=== PATIENT | female | born 1965 | race Caucasian/White ===

== ENCOUNTER → 2016-12-05 | Outpatient (CLI) | payer BC ==
--- NOTE | 2016-12-06 08:04 | MM ---
Reason for exam: screening (asymptomatic). Last mammogram was performed 1 year and 2 months ago. History: Family history of breast cancer in maternal aunt at age 55, breast cancer in maternal cousin at age 45, and breast cancer in maternal cousin. Benign MG stereo VAD BX RT of the right breast, September 22, 2014. Benign US left guided VAD of the left breast, December 29, 2009. Took hormonal contraceptives for 38 years beginning at age 16. Physical Findings: A clinical breast exam by your physician is recommended on an annual basis and results should be correlated with mammographic findings. MG Screening Mammo w CAD Bilateral CC and MLO view(s) were taken. Prior study comparison: September 29, 2015, bilateral MG screening mammo w CAD. March 17, 2015, right breast MG diagnostic mammo RT w CAD. There are scattered fibroglandular densities. Finding: There are typically benign round calcifications in both breasts. Previous mammotome biopsy in the right and left breast. There is no discrete abnormality. ASSESSMENT: Benign, BI-RAD 2 RECOMMENDATION: Routine screening mammogram of both breasts in 1 year.
== END | disposition home or self-care (01) ==
LOC: RADMAMWWP 14:02
PROVIDERS: ATTEND Family Medicine
DX: Z12.31 Encounter for screening mammogram for malignant neoplasm of breast (principal)

== ENCOUNTER → 2018-01-24 | Outpatient (CLI) | payer BC ==
--- NOTE | 2018-01-25 12:08 | MM ---
Reason for exam: screening (asymptomatic). Last mammogram was performed 1 year and 2 months ago. History: Family history of breast cancer in maternal aunt at age 55, breast cancer in maternal cousin at age 45, and breast cancer in maternal cousin. Benign MG stereo VAD BX RT of the right breast, September 22, 2014. Benign US left guided VAD of the left breast, December 29, 2009. Took hormonal contraceptives for 38 years beginning at age 16. Physical Findings: A clinical breast exam by your physician is recommended on an annual basis and results should be correlated with mammographic findings. MG Screening Mammo w CAD Bilateral CC and MLO view(s) were taken. Prior study comparison: December 05, 2016, bilateral MG screening mammo w CAD. September 29, 2015, bilateral MG screening mammo w CAD. There are scattered fibroglandular densities. Previous mammotome biopsy in the right and left breast. There is chronic nodularity in the right breast. No significant changes when compared with prior studies. ASSESSMENT: Benign, BI-RAD 2 RECOMMENDATION: Routine screening mammogram of both breasts in 1 year.
== END | disposition home or self-care (01) ==
LOC: RADMAMWWP 11:53
PROVIDERS: ATTEND Family Medicine
DX: Z12.31 Encounter for screening mammogram for malignant neoplasm of breast (principal)
CPT/HCPCS: 77067

== ENCOUNTER → 2019-02-06 | Outpatient (CLI) | payer OTHER ==
--- NOTE | 2019-02-10 07:57 | MM ---
Reason for exam: screening (asymptomatic). Last mammogram was performed 1 year ago. History: Patient is postmenopausal. Family history of breast cancer in maternal aunt at age 55, breast cancer in maternal cousin at age 45, and breast cancer in maternal cousin. Benign MG stereo VAD BX RT of the right breast, September 22, 2014. Benign US left guided VAD of the left breast, December 29, 2009. Took hormonal contraceptives for 38 years beginning at age 16. Physical Findings: A clinical breast exam by your physician is recommended on an annual basis and results should be correlated with mammographic findings. MG Screening Mammo w CAD Bilateral CC and MLO view(s) were taken. Prior study comparison: January 24, 2018, bilateral MG screening mammo w CAD. December 05, 2016, bilateral MG screening mammo w CAD. There are scattered fibroglandular densities. Previous mammotome biopsy in the left breast. No significant changes when compared with prior studies. ASSESSMENT: Benign, BI-RAD 2 RECOMMENDATION: Routine screening mammogram of both breasts in 1 year.
== END | disposition home or self-care (01) ==
LOC: RADMAMWWP 13:01
PROVIDERS: ATTEND Family Medicine
DX: Z12.31 Encounter for screening mammogram for malignant neoplasm of breast (principal)
CPT/HCPCS: 77067

== ENCOUNTER 2019-08-20 19:35 | Emergency (ER) | payer OTHER ==
[2019-08-20] MEDS ORDERED: ONDANSETRON 4 MG/2 ML VIAL IVP STA (20:20)
[2019-08-20] MEDS ORDERED: SODIUM CHLORIDE 0.9% 1,000 ML IV STA (20:20)
[2019-08-20] MEDS ORDERED: HYDROmorphone 0.5 MG/0.5 ML SYRINGE IVP STA ×2 (20:20→22:26)
--- NOTE | 2019-08-20 20:33 | ED ---
General Adult HPI - General Chief complaint: Abdominal Pain Stated complaint: abdominal pain Time Seen by Provider: 08/20/19 19:50 Source: patient, RN notes reviewed Mode of arrival: ambulatory Limitations: no limitations - History of Present Illness Initial comments: 54-year-old female with a past medical history hyperlipidemia, diabetes mellitus presents to the emergency department for a chief complaint of upper abdominal pain. Patient states this has been ongoing for about 4 hours. Describes this as a very sharp pain. States it started off very gradual and then worsened in the past hour. Denies any radiating pain. Admits to nausea. Denies chest pain or back pain. States she is a history diverticular and states this feels similar but it is usually lower abdomen. Patient has no other complaints at this time including shortness of breath, chest pain, nausea or vomiting, headache, or visual changes. - Related Data Home Medications Medication Instructions Recorded Confirmed Aspirin [Adult Low Dose Aspirin EC] 81 mg PO DAILY 11/04/15 11/06/15 Atenolol [Tenormin] 50 mg PO DAILY 11/04/15 11/06/15 Levothyroxine Sodium [Synthroid] 125 mcg PO DAILY 11/04/15 11/06/15 Propranolol HCl [Propranolol HCl 60 mg PO DAILY 11/04/15 11/06/15 ER] Simvastatin [Zocor] 20 mg PO HS 11/04/15 11/06/15 glipiZIDE [Glipizide] 5 mg PO BID 11/04/15 11/06/15 metFORMIN HCL [metFORMIN HCL ER] 1,000 mg PO BID 11/04/15 11/06/15 Previous Rx's Medication Instructions Recorded Sulfamethox-Tmp 800-160Mg [Bactrim 1 tab PO Q12HR #20 tab 08/21/19 DS 800-160 mg] Allergies Allergy/AdvReac Type Severity Reaction Status Date / Time No Known Allergies Allergy Verified 08/20/19 19:40 Review of Systems ROS Statement: Those systems with pertinent positive or pertinent negative responses have been documented in the HPI. ROS Other: All systems not noted in ROS Statement are negative. Past Medical History Past Medical History: Diabetes Mellitus, Hyperlipidemia, Thyroid Disorder History of Any Multi-Drug Resistant Organisms: None Reported Past Surgical History: Heart Catheterization Past Psychological History: No Psychological Hx Reported Smoking Status: Never smoker Past Alcohol Use History: None Reported Past Drug Use History: None Reported General Exam Limitations: no limitations General appearance: alert, in no apparent distress Head exam: Present: atraumatic, normocephalic, normal inspection Eye exam: Present: normal appearance, PERRL, EOMI. Absent: scleral icterus, conjunctival injection, periorbital swelling ENT exam: Present: normal exam, mucous membranes moist Neck exam: Present: normal inspection, full ROM. Absent: tenderness, meningismus, lymphadenopathy Respiratory exam: Present: normal lung sounds bilaterally. Absent: respiratory distress, wheezes, rales, rhonchi, stridor Cardiovascular Exam: Present: regular rate, normal rhythm, normal heart sounds. Absent: systolic murmur, diastolic murmur, rubs, gallop, clicks GI/Abdominal exam: Present: soft, tenderness (epigastric tenderness), normal bowel sounds. Absent: distended, guarding, rebound, rigid Neurological exam: Present: alert Psychiatric exam: Present: normal affect, normal mood Course Vital Signs 08/20/19 08/20/19 19:37 22:31 Temperature 98.0 F 98 F Pulse Rate 91 75 Respiratory 20 18 Rate Blood Pressure 157/84 107/62 O2 Sat by Pulse 99 97 Oximetry EKG Findings - EKG Comments: EKG Findings:: Normal sinus rhythm, ventricular rate 86, WA interval 154, QTc 442 Medical Decision Making - Medical Decision Making CBC unremarkable. CMP does show evidence of dehydration with a BUN to creatinine ratio of 26. Otherwise unremarkable. EKG shows a normal sinus rhythm. No evidence of ST elevation or depression. Urinalysis does show 75 white blood cells with large this esterase. No CVA tenderness. CT abdomen and pelvis was obtained which shows findings suggestive for ileus rather than small bowel obstruction. This is likely that the patient's pain. Patient is given pain medication and did improve her pain significantly. She was also given fluids for dehydration and Rocephin for urinary tract infection. Patient will be treated outpatient for UTI as well as ileus. She will follow up with primary care. I discussed return parameters. - Lab Data Result diagrams: 08/20/19 20:38 08/20/19 20:38 Lab Results 08/20/19 08/20/19 08/20/19 Range/Units 20:38 20:38 20:38 WBC 9.9 (3.8-10.6) k/uL RBC 4.57 (3.80-5.40) m/uL Hgb 14.3 (11.4-16.0) gm/dL Hct 41.9 (34.0-46.0) % MCV 91.7 (80.0-100.0) fL MCH 31.3 (25.0-35.0) pg MCHC 34.1 (31.0-37.0) g/dL RDW 12.6 (11.5-15.5) % Plt Count 188 (150-450) k/uL Neutrophils % 77 % Lymphocytes % 16 % Monocytes % 4 % Eosinophils % 1 % Basophils % 1 % Neutrophils # 7.6 (1.3-7.7) k/uL Lymphocytes # 1.6 (1.0-4.8) k/uL Monocytes # 0.4 (0-1.0) k/uL Eosinophils # 0.1 (0-0.7) k/uL Basophils # 0.1 (0-0.2) k/uL Sodium 140 (137-145) mmol/L Potassium 4.6 (3.5-5.1) mmol/L Chloride 102 (98-107) mmol/L Carbon Dioxide 28 (22-30) mmol/L Anion Gap 10 mmol/L BUN 34 H (7-17) mg/dL Creatinine 1.28 H (0.52-1.04) mg/dL Est GFR (CKD-EPI)AfAm 54 (>60 ml/min/1.73 sqM) Est GFR (CKD-EPI)NonAf 47 (>60 ml/min/1.73 sqM) Glucose 123 H (74-99) mg/dL Plasma Lactic Acid Willem (0.7-2.0) mmol/L Calcium 10.1 (8.4-10.2) mg/dL Total Bilirubin 0.6 (0.2-1.3) mg/dL AST 25 (14-36) U/L ALT 28 (9-52) U/L Alkaline Phosphatase 176 H (38-126) U/L Troponin I <0.012 (0.000-0.034) ng/mL Total Protein 7.9 (6.3-8.2) g/dL Albumin 4.8 (3.5-5.0) g/dL Amylase 66 (30-110) U/L Lipase 89 (23-300) U/L Urine Color Urine Appearance (Clear) Urine pH (5.0-8.0) Ur Specific [place] (1.001-1.035) Urine Protein (Negative) Urine Glucose (UA) (Negative) Urine Ketones (Negative) Urine Blood (Negative) Urine Nitrite (Negative) Urine Bilirubin (Negative) Urine Urobilinogen (<2.0) mg/dL Ur Leukocyte Esterase (Negative) Urine RBC (0-5) /hpf Urine WBC (0-5) /hpf Urine Bacteria (None) /hpf 08/20/19 08/20/19 Range/Units 20:38 22:23 WBC (3.8-10.6) k/uL RBC (3.80-5.40) m/uL Hgb (11.4-16.0) gm/dL Hct (34.0-46.0) % MCV (80.0-100.0) fL MCH (25.0-35.0) pg MCHC (31.0-37.0) g/dL RDW (11.5-15.5) % Plt Count (150-450) k/uL Neutrophils % % Lymphocytes % % Monocytes % % Eosinophils % % Basophils % % Neutrophils # (1.3-7.7) k/uL Lymphocytes # (1.0-4.8) k/uL Monocytes # (0-1.0) k/uL Eosinophils # (0-0.7) k/uL Basophils # (0-0.2) k/uL Sodium (137-145) mmol/L Potassium (3.5-5.1) mmol/L Chloride (98-107) mmol/L Carbon Dioxide (22-30) mmol/L Anion Gap mmol/L BUN (7-17) mg/dL Creatinine (0.52-1.04) mg/dL Est GFR (CKD-EPI)AfAm (>60 ml/min/1.73 sqM) Est GFR (CKD-EPI)NonAf (>60 ml/min/1.73 sqM) Glucose (74-99) mg/dL Plasma Lactic Acid Willem 1.3 (0.7-2.0) mmol/L Calcium (8.4-10.2) mg/dL Total Bilirubin (0.2-1.3) mg/dL AST (14-36) U/L ALT (9-52) U/L Alkaline Phosphatase (38-126) U/L Troponin I (0.000-0.034) ng/mL Total Protein (6.3-8.2) g/dL Albumin (3.5-5.0) g/dL Amylase (30-110) U/L Lipase (23-300) U/L Urine Color Yellow Urine Appearance Cloudy H (Clear) Urine pH 8.5 H (5.0-8.0) Ur Specific [place] 1.037 H (1.001-1.035) Urine Protein Trace H (Negative) Urine Glucose (UA) Negative (Negative) Urine Ketones Trace H (Negative) Urine Blood Trace H (Negative) Urine Nitrite Negative (Negative) Urine Bilirubin Negative (Negative) Urine Urobilinogen <2.0 (<2.0) mg/dL Ur Leukocyte Esterase Large H (Negative) Urine RBC 4 (0-5) /hpf Urine WBC 75 H (0-5) /hpf Urine Bacteria Many H (None) /hpf Disposition Clinical Impression: Urinary tract infection, Ileus Disposition: HOME SELF-CARE Condition: Good Instructions (If sedation given, give patient instructions): Ileus (ED), Urinary Tract Infection in Women (ED) Additional Instructions: Please take antibiotic as directed. Take plenty of fluids. Follow-up with primary care in 1-2 days. Return to the emergency department if you have any worsening symptoms. Prescriptions: Sulfamethox-Tmp 800-160Mg [Bactrim DS 800-160 mg] 1 tab PO Q12HR #20 tab Is patient prescribed a controlled substance at d/c from ED?: No Referrals: Ramiro Bhardwaj MD [Primary Care Provider] - 1-2 days Time of Disposition: 00:19
[2019-08-20 20:49] LABS: Basophils # (A) 0.1 k/uL (0-0.2); Basophils % (A) 1 %; Eosinophils # (A) 0.1 k/uL (0-0.7); Eosinophils % (A) 1 %; HCT 41.9 % (34.0-46.0); HGB 14.3 gm/dL (11.4-16.0); Lymphocytes # (A) 1.6 k/uL (1.0-4.8); Lymphocytes % (A) 16 %; MCH 31.3 pg (25.0-35.0); MCHC 34.1 g/dL (31.0-37.0); MCV 91.7 fL (80.0-100.0); Mean Platelet Volume 6.7; Monocytes # (A) 0.4 k/uL (0-1.0); Monocytes % (A) 4 %; Neutrophils # (A) 7.6 k/uL (1.3-7.7); Neutrophils % (A) 77 %; Platelet Count 188 k/uL (150-450); RBC 4.57 m/uL (3.80-5.40); RDW 12.6 % (11.5-15.5); WBC 9.9 k/uL (3.8-10.6)
[2019-08-20 20:59] LABS: Albumin 4.8 g/dL (3.5-5.0); Calcium 10.1 mg/dL (8.4-10.2); Potassium 4.6 mmol/L (3.5-5.1); Total Bilirubin 0.6 mg/dL (0.2-1.3); Total Protein 7.9 g/dL (6.3-8.2)
--- NOTE | 2019-08-20 22:00 | CT ---
EXAMINATION TYPE: CT abdomen pelvis w con DATE OF EXAM: 08/20/2019 COMPARISON: None INDICATION: upper abdominal pain DLP: 1368.4 mGycm, Automated exposure control for dose reduction was used. CONTRAST: 80cc mL of Isovue 300. Study performed without Oral Contrast TECHNIQUE: Axial images were obtained from above the diaphragm to the pubic rami in the axial plane a t 5 mm thick sections. Reconstructed images are reviewed on the computer in the coronal plane. FINDINGS: Limited CT sections are obtained the lung bases. The lung bases are clear. CT ABDOMEN: Liver: Normal Spleen: Normal Pancreas: Normal Adrenal glands: The adrenal glands are normal. Gallbladder: Normal Kidneys: No masses are evident. No hydronephrosis is present. No cysts are present. Large nonobstr ucting calcifications are present bilaterally. Aorta: Normal Inferior vena cava: Normal. CT PELVIS: Multiple dilated small bowel loops contain fluid are present. This extends towards the terminal ileum . No suspicious sonographic transition is identified. Air and fecal debris is within the colon. There are scattered diverticuli within the sigmoid colon. No acute diverticulitis is evident. Appendix: Normal as visualized. Urinary bladder: Normal. Genitourinary structures: Uterus is unremarkable. Adnexal regions are clear Osseous structures: No suspicious lytic or sclerotic lesions. IMPRESSIONS: 1. Findings appear more suggestive for ileus than small bowel obstruction. Fluid-filled prominent sm all bowel loops extends to the terminal ileum. Follow-up as clinically indicated. 2. Diverticulosis without acute diverticulitis. 3. Bilateral large renal calcifications without obstruction.
[2019-08-20 22:32] VITALS: RESP 18
[2019-08-20 22:33] LABS: Appearance,Urine Cloudy (Clear); Bacteria,Urine Many /hpf; Bilirubin,Urine Negative (Negative); Blood,Urine Trace (Negative); Color,Urine Yellow; Glucose,Urine (UA) Negative (Negative); Ketones,Urine Trace (Negative); Leukocyte Esterase,Urine Large (Negative); Nitrite,Urine Negative (Negative); PH, Urine 8.5 (5.0-8.0); Protein,Urine Trace (Negative); RBC,Urine 4 /hpf (0-5); Specific Gravity,Urine 1.037 (1.001-1.035); Urobilinogen,Urine <2.0 mg/dL (<2.0); WBC,Urine 75 /hpf (0-5)
[2019-08-20] MEDS ORDERED: cefTRIAXone IN SWFI 1,000 MG/10 ML SYRINGE IVP STA (22:49)
--- NOTE | 2019-08-20 23:59 | US ---
EXAMINATION TYPE: US abdomen limited DATE OF EXAM: 08/20/2019 COMPARISON: CT 2019 CLINICAL HISTORY: RUQ. RUQ/epigastric pain x 7 hours. Hyperlipidemia. Diabetes. EXAM MEASUREMENTS: Liver Length: 16.2 cm Gallbladder Wall: 0.26 cm CBD: 0.44 cm Right Kidney: 9.5 x 5.1 x 5.3 cm *Limited due to gas and body habitus Pancreas: Limited evaluation Liver: Difficult to penetrate, increased attenuation. Gallbladder: Internal echoes seen vs artifact. Appears partially contracted. Evidence for sonographic Chisholm's sign: no CBD: appears wnl Right Kidney: Hyperechoic focus with posterior shadowing seen lower pole measurin.7 x 0.7 x 0.4 cm. IMPRESSION: No gallstones or dilated ducts. No hydronephrosis seen in the right kidney. Nonobstructin g calculus in the lower pole right kidney.
[2019-08-21 00:44] VITALS: BP 125/78; PULSE 80; TEMP 98
== END 2019-08-21 00:44 | disposition home or self-care (01) ==
LOC: EC 19:35
DX: K56.7 Ileus, unspecified (principal); N39.0 Urinary tract infection, site not specified; E86.0 Dehydration; E11.9 Type 2 diabetes mellitus without complications; E78.5 Hyperlipidemia, unspecified; E07.9 Disorder of thyroid, unspecified; Z79.82 Long term (current) use of aspirin; Z79.890 Hormone replacement therapy; Z79.84 Long term (current) use of oral hypoglycemic drugs; Z79.899 Other long term (current) drug therapy; Z95.5 Presence of coronary angioplasty implant and graft
CPT/HCPCS: 36415; 93005; 80053; 82150; 83605; 83690; 84484; 85025; 81001; 76705; 74177; 99284; 96374; 96375 ×2; 96376; 96361 ×2; J2405; J0696; J1170; Q9967

== ENCOUNTER 2020-04-13 22:48 | Inpatient (IN) | payer OTHER ==
[2020-04-13] MEDS ORDERED: ONDANSETRON 4 MG/2 ML VIAL IVP STA (23:23)
--- NOTE | 2020-04-13 23:41 | ED ---
Fever HPI - General Chief Complaint: Fever Stated Complaint: Body aches, chills Time Seen by Provider: 04/13/20 23:18 Source: patient Mode of arrival: ambulatory Limitations: no limitations - Related Data Home Medications Medication Instructions Recorded Confirmed Aspirin [Adult Low Dose Aspirin EC] 81 mg PO DAILY 11/04/15 11/06/15 Atenolol [Tenormin] 50 mg PO DAILY 11/04/15 11/06/15 Levothyroxine Sodium [Synthroid] 125 mcg PO DAILY 11/04/15 11/06/15 Propranolol HCl [Propranolol HCl 60 mg PO DAILY 11/04/15 11/06/15 ER] Simvastatin [Zocor] 20 mg PO HS 11/04/15 11/06/15 glipiZIDE [Glipizide] 5 mg PO BID 11/04/15 11/06/15 metFORMIN HCL [metFORMIN HCL ER] 1,000 mg PO BID 11/04/15 11/06/15 Previous Rx's Medication Instructions Recorded Sulfamethox-Tmp 800-160Mg [Bactrim 1 tab PO Q12HR #20 tab 08/21/19 DS 800-160 mg] Allergies Allergy/AdvReac Type Severity Reaction Status Date / Time No Known Allergies Allergy Verified 04/13/20 23:01 Review of Systems ROS Statement: Those systems with pertinent positive or pertinent negative responses have been documented in the HPI. ROS Other: All systems not noted in ROS Statement are negative. Past Medical History Past Medical History: Diabetes Mellitus, Hyperlipidemia, Thyroid Disorder History of Any Multi-Drug Resistant Organisms: None Reported Past Surgical History: Heart Catheterization Past Psychological History: No Psychological Hx Reported Smoking Status: Never smoker Past Alcohol Use History: None Reported Past Drug Use History: None Reported General Exam Limitations: no limitations Course Vital Signs 04/13/20 04/14/20 22:59 00:48 Temperature 102.7 F H 101.6 F H Pulse Rate 103 H Respiratory 16 Rate Blood Pressure 114/72 O2 Sat by Pulse 97 Oximetry Medical Decision Making - Lab Data Result diagrams: 04/13/20 23:56 04/13/20 23:56 Lab Results 04/13/20 04/13/20 04/13/20 Range/Units 23:56 23:56 23:56 WBC 6.6 (3.8-10.6) k/uL RBC 3.68 L (3.80-5.40) m/uL Hgb 11.4 (11.4-16.0) gm/dL Hct 34.0 (34.0-46.0) % MCV 92.5 (80.0-100.0) fL MCH 30.9 (25.0-35.0) pg MCHC 33.4 (31.0-37.0) g/dL RDW 14.5 (11.5-15.5) % Plt Count 104 L (150-450) k/uL Neutrophils % 82 % Lymphocytes % 9 % Monocytes % 5 % Eosinophils % 1 % Basophils % 0 % Neutrophils # 5.4 (1.3-7.7) k/uL Lymphocytes # 0.6 L (1.0-4.8) k/uL Monocytes # 0.3 (0-1.0) k/uL Eosinophils # 0.1 (0-0.7) k/uL Basophils # 0.0 (0-0.2) k/uL PT 9.8 (9.0-12.0) sec INR 0.9 (<1.2) APTT 27.2 (22.0-30.0) sec D-Dimer 1.95 H (<0.60) mg/L FEU Sodium 130 L (137-145) mmol/L Potassium 3.2 L (3.5-5.1) mmol/L Chloride 94 L (98-107) mmol/L Carbon Dioxide 26 (22-30) mmol/L Anion Gap 10 mmol/L BUN 39 H (7-17) mg/dL Creatinine 2.43 H (0.52-1.04) mg/dL Est GFR (CKD-EPI)AfAm 25 (>60 ml/min/1.73 sqM) Est GFR (CKD-EPI)NonAf 22 (>60 ml/min/1.73 sqM) Glucose 168 H (74-99) mg/dL Plasma Lactic Acid Willem (0.7-2.0) mmol/L Calcium 8.4 (8.4-10.2) mg/dL Magnesium 2.8 H (1.6-2.3) mg/dL Total Bilirubin 0.8 (0.2-1.3) mg/dL AST 31 (14-36) U/L ALT 19 (4-34) U/L Alkaline Phosphatase 137 H (38-126) U/L Lactate Dehydrogenase 503 (313-618) U/L C-Reactive Protein 644.7 H (<10.0) mg/L Total Protein 7.0 (6.3-8.2) g/dL Albumin 3.6 (3.5-5.0) g/dL 04/13/20 Range/Units 23:56 WBC (3.8-10.6) k/uL RBC (3.80-5.40) m/uL Hgb (11.4-16.0) gm/dL Hct (34.0-46.0) % MCV (80.0-100.0) fL MCH (25.0-35.0) pg MCHC (31.0-37.0) g/dL RDW (11.5-15.5) % Plt Count (150-450) k/uL Neutrophils % % Lymphocytes % % Monocytes % % Eosinophils % % Basophils % % Neutrophils # (1.3-7.7) k/uL Lymphocytes # (1.0-4.8) k/uL Monocytes # (0-1.0) k/uL Eosinophils # (0-0.7) k/uL Basophils # (0-0.2) k/uL PT (9.0-12.0) sec INR (<1.2) APTT (22.0-30.0) sec D-Dimer (<0.60) mg/L FEU Sodium (137-145) mmol/L Potassium (3.5-5.1) mmol/L Chloride (98-107) mmol/L Carbon Dioxide (22-30) mmol/L Anion Gap mmol/L BUN (7-17) mg/dL Creatinine (0.52-1.04) mg/dL Est GFR (CKD-EPI)AfAm (>60 ml/min/1.73 sqM) Est GFR (CKD-EPI)NonAf (>60 ml/min/1.73 sqM) Glucose (74-99) mg/dL Plasma Lactic Acid Willem 1.1 (0.7-2.0) mmol/L Calcium (8.4-10.2) mg/dL Magnesium (1.6-2.3) mg/dL Total Bilirubin (0.2-1.3) mg/dL AST (14-36) U/L ALT (4-34) U/L Alkaline Phosphatase (38-126) U/L Lactate Dehydrogenase (313-618) U/L C-Reactive Protein (<10.0) mg/L Total Protein (6.3-8.2) g/dL Albumin (3.5-5.0) g/dL - EKG Data -: EKG Interpreted by Me (EKG sinus rhythm rate of 90 7 PM 152 QRS A QTC 424) Disposition Clinical Impression: Fever, Viral infection, Gastroenteritis Narrative: ro COVID Disposition: ADMITTED IP TO THIS HOSP Condition: Good Is patient prescribed a controlled substance at d/c from ED?: No Referrals: Denny Briseno MD [Primary Care Provider] - 1-2 days
[2020-04-13] MEDS ORDERED: KETOROLAC 30 MG/ML 1 ML VIAL IVP STA (23:50)
[2020-04-14 00:10] LABS: Basophils % (A) 0 %; Eosinophils # (A) 0.1 k/uL (0-0.7); Eosinophils % (A) 1 %; HGB 11.4 gm/dL (11.4-16.0); Lymphocytes # (A) 0.6 k/uL (1.0-4.8); Lymphocytes % (A) 9 %; MCH 30.9 pg (25.0-35.0); MCHC 33.4 g/dL (31.0-37.0); MCV 92.5 fL (80.0-100.0); Mean Platelet Volume 8.1; Monocytes # (A) 0.3 k/uL (0-1.0); Monocytes % (A) 5 %; Neutrophils # (A) 5.4 k/uL (1.3-7.7); Neutrophils % (A) 82 %; Platelet Count 104 k/uL (150-450); RBC 3.68 m/uL (3.80-5.40); RDW 14.5 % (11.5-15.5); WBC 6.6 k/uL (3.8-10.6)
[2020-04-14 00:25] LABS: Albumin 3.6 g/dL (3.5-5.0); Calcium 8.4 mg/dL (8.4-10.2); Magnesium 2.8 mg/dL (1.6-2.3); Potassium 3.2 mmol/L (3.5-5.1); Total Bilirubin 0.8 mg/dL (0.2-1.3)
[2020-04-14 00:35] LABS: INR 0.9 (<1.2); Partial Thromboplastin Time 27.2 sec (22.0-30.0); Prothrombin Time 9.8 sec (9.0-12.0)
--- NOTE | 2020-04-14 00:38 | XR ---
EXAMINATION TYPE: XR KUB DATE OF EXAM: 04/14/2020 COMPARISON: NONE HISTORY: Abdominal pain TECHNIQUE: 2 views FINDINGS: Supine views were obtained and show no sign of intestinal obstruction or pneumoperitoneum. Fecal pattern is normal. There are no pathologic calcifications. There is no evidence of a mass. Lung bases are clear of consolidation. IMPRESSION: Nonacute abdomen.
--- NOTE | 2020-04-14 00:41 | XR ---
EXAMINATION TYPE: XR chest 1V portable DATE OF EXAM: 04/14/2020 COMPARISON: NONE HISTORY: Chest pain TECHNIQUE: FINDINGS: Heart and mediastinum are normal. Lungs are clear. Diaphragm is normal. Bony thorax is inta ct. IMPRESSION: Normal chest.
[2020-04-14 00:46] LABS: D-Dimer 1.95 mg/L FEU (<0.60)
[2020-04-14 01:16] LABS: C Reactive Protein 644.7 mg/L (<10.0)
[2020-04-14] MEDS ORDERED: ACETAMINOPHEN TAB 325 MG TAB PO STA (01:35)
[2020-04-14] MEDS: SODIUM CHLORIDE 0.9% 1,000 ML IV SCH ×3 (01:56→17:09)
[2020-04-14] MEDS: SODIUM CHLORIDE 0.9% 500 ML 500 ML IV SCH ×3 (01:56→02:47)
[2020-04-14] MEDS ORDERED: MORPHINE SULFATE 4 MG/ML SYRINGE IVP STA (03:24)
[2020-04-14] MEDS ORDERED: PANTOPRAZOLE 40 MG/10 ML VIAL IV SCH (09:00)
[2020-04-14] MEDS ORDERED: ENOXAPARIN 40 MG/0.4 ML SYRINGE SQ SCH (09:00)
[2020-04-14 09:24] LABS: Glucose,Whole Blood 59 mg/dL (75-99)
[2020-04-14 09:31] LABS: Glucose,Whole Blood 59 mg/dL (75-99)
[2020-04-14 09:49] LABS: Glucose,Whole Blood 78 mg/dL (75-99)
[2020-04-14] MEDS: MORPHINE SULFATE 2 MG/ML SYRINGE IVP PRN (10:46)
[2020-04-14 10:47] LABS: Glucose,Whole Blood 162 mg/dL (75-99)
[2020-04-14 12:26] LABS: Ferritin 340.2 ng/mL (10.0-291.0)
[2020-04-14] MEDS: ACETAMINOPHEN TAB 325 MG TAB PO PRN ×2 (13:28→21:07)
[2020-04-14] MEDS: JARDIANCE 10 MG PO SCH ×2 (13:37→15:03)
[2020-04-14] MEDS: MULTIVITAMINS, THERA 1 EACH TAB PO SCH (13:57)
[2020-04-14] MEDS: LEVOTHYROXINE 125 MCG TAB PO SCH (13:57)
[2020-04-14] MEDS: VITAMIN E (DL,TOCOPHERYL ACET) 400 UNIT CAP PO SCH (13:57)
[2020-04-14 16:44] LABS: Glucose,Whole Blood 282 mg/dL (75-99)
[2020-04-14] MEDS ORDERED: POTASSIUM CHLORIDE ER 20 MEQ TAB.ER PO STA (16:55)
[2020-04-14 21:01] LABS: Glucose,Whole Blood 217 mg/dL (75-99)
[2020-04-14] MEDS: glipiZIDE 5 MG TAB PO SCH (21:07)
[2020-04-14] MEDS ORDERED: NALOXONE 0.4 MG/ML 1 ML VIAL IV PRN (22:22)
[2020-04-14] MEDS ORDERED: MELATONIN 3 MG TABLET PO PRN (22:22)
[2020-04-14] MEDS ORDERED: MAG HYDROX/AL HYDROX/SIMETH 30 ML CUP PO PRN (22:22)
[2020-04-14] MEDS ORDERED: LACTULOSE 20 GM/30 ML CUP PO PRN (22:22)
[2020-04-14] MEDS ORDERED: CALCIUM CARBONATE 500 MG CHEWABLE PO PRN (22:22)
[2020-04-14] MEDS ORDERED: MAGNESIUM HYDROXIDE 2,400 MG/10 ML CUP PO PRN (22:22)
[2020-04-14] MEDS ORDERED: ENOXAPARIN 80 MG/0.8 ML SYRINGE SQ SCH (22:30)
--- NOTE | 2020-04-14 22:39 | P.HPIM ---
History of Present Illness H&P Date: 04/14/20 Chief Complaint: Fever History of presenting complaint: This is a pleasant 54-year-old patient of Dr. poe. Chronic stable medical conditions include diabetes mellitus type 2, hypothyroid,. Patient's 3 weeks ago started of with lower back pain shivering some nausea symptoms lasted for about 10 days. She was given symptomatic treatment by family doctor. [place] better for a week. Went back to work for a day. Symptoms started again. Same fever and chills. Denies any cough but noted that she was getting short of breath with exertion. She has some diarrhea yesterday. Appetite has been down. Patient also had cold sores a week ago. Given antiviral by family doctor. Also felt dizzy lightheaded. Decided to come in. Review of systems: GEN.: Weak tired and dizzy lightheaded fever EYES: None HEENT: None NECK: None RESPIRATORY: As above CARDIOVASCULAR: None GASTROINTESTINAL: As above GENITOURINARY: None MUSCULOSKELETAL: None LYMPHATICS: None HEMATOLOGICAL: None PSYCHIATRY: None NEUROLOGICAL: None Past medical history to include: Diabetes mellitus type 2, GERD-before patient lost weight, hypothyroid Social history: Lives with her fianc. Does not smoke or drink alcohol. Does home care. Physical examination: VITAL SIGNS: 101.6, 78, 18, 106/60, 98% on room air GENERAL: BMI 30.9, sitting up in bed, not in distress. EYES: Pupils equal. Conjunctiva normal. HEENT: External appearance of nose and ears normal, oral cavity grossly normal. NECK: JVD not raised; masses not palpable. HEART: First and second heart sounds are normal; no edema. LUNGS: Respiratory rate normal; clear to auscultation. ABDOMEN: Soft, nontender, liver spleen not palpable, no masses palpable. PSYCH: Alert and oriented x3; mood and affect normal. NEUROLOGICAL: Cranial nerves grossly intact; no facial asymmetry, power and sensation grossly intact. LYMPHATICS: No lymph nodes palpable in the axilla and neck INVESTIGATIONS, reviewed in the clinical context: White count 6.6 hemoglobin 11.4 platelets 104 potassium 3.2 bun 39 creatinine 2.43 Blood glucose 168 ferritin 340 C-reactive protein 644 pro calcitonin 37.9 EKG tracing personally reviewed by me-normal sinus rhythm, poor R-wave progression Chest x-ray film personally reviewed by [id number] obvious infiltrate Assessment: -This is a patient who's had fever and chills about 3 weeks ago was started off with significant low back pain. Denies any urinary symptoms. Had one day of diarrhea. Some shortness of breath with exertion. Patient pulse oxing well on room air. Patient's inflammation markers are all positive Suspicion for COVID is significant. Also like to rule out discitis. -Diabetes mellitus type 2 on oral hypoglycemic -Hypothyroid -Obesity BMI 30.9 -Hyponatremia -Acute kidney injury likely ATN and possible prerenal Plan: COVID 19 PCR test has been sent out. In the meantime empirically start the patient on therapeutic dose of Lovenox and IV Solu-Medrol. Accu-Cheks will be followed. Home medications resumed. We will order MRI of the spine without contrast. Infectious disease was consulted. Care was discussed with the patient question patient was given IV fluids. Repeat labs. Questions Were answered. Order blood cultures . Past Medical History Past Medical History: Diabetes Mellitus, Hyperlipidemia, Thyroid Disorder History of Any Multi-Drug Resistant Organisms: None Reported Past Surgical History: Heart Catheterization Past Psychological History: No Psychological Hx Reported Smoking Status: Never smoker Past Alcohol Use History: None Reported Past Drug Use History: None Reported - Past Family History Father Family Medical History: Coronary Artery Disease (CAD), Myocardial Infarction (MT) Additional Family Medical History / Comment(s): Pt does not know at what age father had MT. She states he of heart disease at the age of 62 yrs. Mother Family Medical History: Diabetes Mellitus Additional Family Medical History / Comment(s): Mother of sepsis. Brother(s) Family Medical History: Myocardial Infarction (MT) Additional Family Medical History / Comment(s): Brother had a MT at the age of 52 yrs. Sister(s) Family Medical History: Myocardial Infarction (MT) Additional Family Medical History / Comment(s): Sister had a MT at the age of 56yrs. Medications and Allergies Home Medications Medication Instructions Recorded Confirmed Type Levothyroxine Sodium [Synthroid] 125 mcg PO DAILY 11/04/15 04/14/20 History glipiZIDE [Glipizide] 5 mg PO BID 11/04/15 04/14/20 History Cholecalciferol [Vitamin D3 (25 1,000 unit PO DAILY 04/14/20 04/14/20 History Mcg = 1000 Iu)] Empagliflozin [Jardiance] 25 mg PO DAILY 04/14/20 04/14/20 History Hydrochlorothiazide [Hydrodiuril] 25 mg PO DAILY 04/14/20 04/14/20 History Multivitamins, Thera [Multivitamin 1 tab PO DAILY 04/14/20 04/14/20 History (formulary)] Vitamin E 400 unit PO DAILY 04/14/20 04/14/20 History Allergies Allergy/AdvReac Type Severity Reaction Status Date / Time No Known Allergies Allergy Verified 04/14/20 06:40 Physical Exam Vitals: Vital Signs Temp Pulse Resp BP Pulse Ox 04/14/20 09:08 97.7 F 71 16 103/65 99 04/14/20 06:28 97.7 F 04/14/20 04:03 78 19 105/74 99 04/14/20 02:42 98.7 F 72 20 104/62 96 04/14/20 02:11 78 18 106/60 98 04/14/20 00:48 101.6 F H 04/13/20 22:59 102.7 F H 103 H 16 114/72 97 Intake and Output 04/13/20 04/14/20 04/14/20 22:59 06:59 14:59 Other: Weight 81.647 kg Results CBC & Chem 7: 04/13/20 23:56 04/13/20 23:56 Labs: Abnormal Lab Results - Last 24 Hours (Table) 04/13/20 04/13/20 04/13/20 Range/Units 23:56 23:56 23:56 RBC 3.68 L (3.80-5.40) m/uL Plt Count 104 L (150-450) k/uL Lymphocytes # 0.6 L (1.0-4.8) k/uL D-Dimer 1.95 H (<0.60) mg/L FEU Sodium 130 L (137-145) mmol/L Potassium 3.2 L (3.5-5.1) mmol/L Chloride 94 L (98-107) mmol/L BUN 39 H (7-17) mg/dL Creatinine 2.43 H (0.52-1.04) mg/dL Glucose 168 H (74-99) mg/dL POC Glucose (mg/dL) (75-99) mg/dL Magnesium 2.8 H (1.6-2.3) mg/dL Alkaline Phosphatase 137 H (38-126) U/L C-Reactive Protein 644.7 H (<10.0) mg/L 04/14/20 04/14/20 Range/Units 09:08 09:30 RBC (3.80-5.40) m/uL Plt Count (150-450) k/uL Lymphocytes # (1.0-4.8) k/uL D-Dimer (<0.60) mg/L FEU Sodium (137-145) mmol/L Potassium (3.5-5.1) mmol/L Chloride (98-107) mmol/L BUN (7-17) mg/dL Creatinine (0.52-1.04) mg/dL Glucose (74-99) mg/dL POC Glucose (mg/dL) 59 L 59 L (75-99) mg/dL Magnesium (1.6-2.3) mg/dL Alkaline Phosphatase (38-126) U/L C-Reactive Protein (<10.0) mg/L
[2020-04-14] MEDS ORDERED: IOPAMIDOL CONTRAST (ORAL USE) VIAL PO PRN (23:04)
[2020-04-14] MEDS: methylPREDNISolone SOD SUCCI 40 MG/ML 1 ML VIAL IV SCH ×2 (23:12→23:29)
[2020-04-14] MEDS: PIPERACILLIN-TAZOBACTAM 3.375 GM in SODIUM CHLORIDE 0.9% 100 ML IVPB SCH (23:13)
[2020-04-14 23:55] LABS: Potassium 3.9 mmol/L (3.5-5.1)
[2020-04-15] MEDS: SODIUM CHLORIDE 0.9% 1,000 ML IV SCH ×3 (03:34→16:33)
[2020-04-15] MEDS: LEVOTHYROXINE 125 MCG TAB PO SCH (05:26)
[2020-04-15 07:18] LABS: Glucose,Whole Blood 216 mg/dL (75-99)
[2020-04-15] MEDS: INSULIN ASPART (NovoLOG) 100 UNIT/ML VIAL SQ SCH ×4 (07:29→21:59)
[2020-04-15] MEDS: PIPERACILLIN-TAZOBACTAM 3.375 GM in SODIUM CHLORIDE 0.9% 100 ML IVPB SCH ×3 (07:29→22:03)
[2020-04-15] MEDS: glipiZIDE 5 MG TAB PO SCH ×2 (07:29→21:59)
[2020-04-15] MEDS: methylPREDNISolone SOD SUCCI 40 MG/ML 1 ML VIAL IV SCH (07:29)
[2020-04-15] MEDS: MULTIVITAMINS, THERA 1 EACH TAB PO SCH (07:29)
[2020-04-15] MEDS: VITAMIN E (DL,TOCOPHERYL ACET) 400 UNIT CAP PO SCH (07:30)
[2020-04-15] MEDS: JARDIANCE 10 MG PO SCH (07:30)
--- NOTE | 2020-04-15 07:58 | P.CONS ---
History of Present Illness - Reason for Consult Consult date: 04/14/20 Fever rule out covid Requesting physician: Thien Stock - Chief Complaint Nausea vomiting and diarrhea x one day - History of Present Illness Patient is a 54-year-old female presented to the hospital with acute nausea vomiting and diarrhea along with a fever of 1 day duration, this patient mentions similar symptom about 3 weeks ago at which time she was tested for covid which was negative, patient symptom started suddenly, with multiple episodes of vomiting with associated multiple loose stools no blood or mucus in the stool and is complaining of some lower abdominal pain more of a dull aching to colicky in nature about 5-6 out of 10 and no radiation the patient started running a fever with chills with these symptoms the patient presented to the hospital patient was evaluated by the ER physician, patient did have a chest x- ray was negative including abdominal series was negative as well, patient did have a fever on presentation hospital however her white count was normal she did have mild lymphopenia, covid testing is currently pending patient has been admitted to the hospital infectious disease was consulted for further management of antibiotic therapy, patient blood culture did come back positive with gram- negative bacilli this evening Review of Systems Positive point has been mentioned in the HPI rest of the systems are negative Past Medical History Past Medical History: Diabetes Mellitus, Hyperlipidemia, Thyroid Disorder Additional Past Medical History / Comment(s): Pt states same symptoms-body aches/fever approximately 3 weeks ago which lasted 2 weeks, NIDDM type II, hypothyroid, past migraines, UTI-recent, bronchitis in past History of Any Multi-Drug Resistant Organisms: None Reported Past Surgical History: Heart Catheterization Additional Past Surgical History / Comment(s): R inguinal hernia repair, colonoscopy-normal, 2016 cardiac cath-normal. Past Anesthesia/Blood Transfusion Reactions: Postoperative Nausea & Vomiting (PONV) Past Psychological History: No Psychological Hx Reported Smoking Status: Never smoker Past Alcohol Use History: None Reported Past Drug Use History: None Reported - Past Family History Father Family Medical History: Coronary Artery Disease (CAD), Myocardial Infarction (PA) Additional Family Medical History / Comment(s): Pt does not know at what age father had PA. She states he of heart disease at the age of 62 yrs. Mother Family Medical History: Diabetes Mellitus Additional Family Medical History / Comment(s): Mother of sepsis. Brother(s) Family Medical History: Myocardial Infarction (PA) Additional Family Medical History / Comment(s): Brother had a PA at the age of 52 yrs. Sister(s) Family Medical History: Myocardial Infarction (PA) Additional Family Medical History / Comment(s): Sister had a PA at the age of 56yrs. Medications and Allergies Home Medications Medication Instructions Recorded Confirmed Type Levothyroxine Sodium [Synthroid] 125 mcg PO DAILY 11/04/15 04/14/20 History glipiZIDE [Glipizide] 5 mg PO BID 11/04/15 04/14/20 History Cholecalciferol [Vitamin D3 (25 1,000 unit PO DAILY 04/14/20 04/14/20 History Mcg = 1000 Iu)] Empagliflozin [Jardiance] 25 mg PO DAILY 04/14/20 04/14/20 History Hydrochlorothiazide [Hydrodiuril] 25 mg PO DAILY 04/14/20 04/14/20 History Multivitamins, Thera [Multivitamin 1 tab PO DAILY 04/14/20 04/14/20 History (formulary)] Vitamin E 400 unit PO DAILY 04/14/20 04/14/20 History Allergies Allergy/AdvReac Type Severity Reaction Status Date / Time No Known Allergies Allergy Verified 04/14/20 06:40 Physical Exam Vitals: Vital Signs Temp Pulse Pulse Resp BP BP Pulse Ox 04/15/20 02:55 97.8 F 63 113/68 98 04/15/20 00:00 92 17 04/14/20 20:50 101.4 F H 92 115/77 98 04/14/20 14:06 17 04/14/20 14:02 99.3 F 83 17 110/65 98 04/14/20 13:24 101.3 F H 89 18 107/69 04/14/20 09:08 97.7 F 71 16 103/65 99 Intake and Output 04/14/20 04/15/20 04/15/20 22:59 06:59 14:59 Other: # Voids 1 1 GENERAL DESCRIPTION: Middle-aged female lying in bed, no distress. No tachypnea or accessory muscle of respiration use. HEENT: Shows Pallor , no scleral icterus. Oral mucous membrane is dry. No pharyngeal erythema or thrush NECK: Trachea central, no thyromegaly. LUNGS: Unlabored breathing. Clear to auscultation anteriorly. No wheeze or crackle. HEART: S1, S2, regular rate and rhythm. No loud murmur ABDOMEN: Soft, no tenderness , guarding or rigidity, no organomegaly EXTREMITIES: No edema of feet. SKIN: No rash, no masses palpable. NEUROLOGICAL: The patient is awake, alert, oriented x3, mood and affect normal. Results CBC & Chem 7: 04/13/20 23:56 04/14/20 23:21 Labs: Abnormal Lab Results - Last 24 Hours (Table) 04/13/20 04/13/20 04/14/20 Range/Units 23:56 23:56 09:08 Sodium (137-145) mmol/L Carbon Dioxide (22-30) mmol/L BUN (7-17) mg/dL Creatinine (0.52-1.04) mg/dL Glucose (74-99) mg/dL POC Glucose (mg/dL) 59 L (75-99) mg/dL Calcium (8.4-10.2) mg/dL Ferritin 340.2 H (10.0-291.0) ng/mL Procalcitonin 37.95 H (0.02-0.09) ng/mL 04/14/20 04/14/20 04/14/20 Range/Units 09:30 10:44 16:43 Sodium (137-145) mmol/L Carbon Dioxide (22-30) mmol/L BUN (7-17) mg/dL Creatinine (0.52-1.04) mg/dL Glucose (74-99) mg/dL POC Glucose (mg/dL) 59 L 162 H 282 H (75-99) mg/dL Calcium (8.4-10.2) mg/dL Ferritin (10.0-291.0) ng/mL Procalcitonin (0.02-0.09) ng/mL 04/14/20 04/14/20 04/15/20 Range/Units 20:59 23:21 07:17 Sodium 130 L (137-145) mmol/L Carbon Dioxide 20 L (22-30) mmol/L BUN 36 H (7-17) mg/dL Creatinine 2.25 H (0.52-1.04) mg/dL Glucose 178 H (74-99) mg/dL POC Glucose (mg/dL) 217 H 216 H (75-99) mg/dL Calcium 7.0 L (8.4-10.2) mg/dL Ferritin (10.0-291.0) ng/mL Procalcitonin (0.02-0.09) ng/mL Microbiology - Last 24 Hours (Table) 04/13/20 23:56 Blood Culture Gram Stain - Preliminary Blood Blood Culture - Preliminary Proteus spec 04/13/20 23:56 Blood Culture - Final Blood Assessment and Plan Assessment: 1-patient presented to hospital with acute nausea vomiting diarrhea and abdominal pain in this patient also have a fever with evidence of gram-negative bacteremia source is likely abdominal with a question of possible diverticulitis versus other intra-abdominal pathology, clinically doubt covid 19 infection in this patient with no respiratory symptoms and chest x-ray been negative (1) Gram-negative bacteremia Current Visit: Yes Status: Acute Code(s): R78.81 - BACTEREMIA SNOMED Code(s): 608703627426 (2) Fever Current Visit: Yes Status: Acute Code(s): R50.9 - FEVER, UNSPECIFIED SNOMED Code(s): 442506427 (3) Gastroenteritis Current Visit: Yes Status: Acute Code(s): K52.9 - NONINFECTIVE DL ROENTERITIS AND COLITIS, UNSPECIFIED SNOMED Code(s): 94310336 Plan: 1- we will obtain CT of abdominal pelvis with oral contrast only 2-start the patient on Zosyn 3.375 g every 8 hours 3-obtain stool studies 4-check UA and urine culture We will follow on clinical condition and cultures to further adjust medication if needed Thank you for this consultation will follow this patient with you Time with Patient: Greater than 30
[2020-04-15 08:28] LABS: WBC 7.5 k/uL (3.8-10.6)
[2020-04-15 08:29] LABS: Basophils % (A) 0 %; Eosinophils % (A) 0 %; HCT 35.6 % (34.0-46.0); Hypochromasia Slight; Lymphocytes # (A) 0.6 k/uL (1.0-4.8); Lymphocytes % (A) 8 %; MCH 30.1 pg (25.0-35.0); MCV 97.3 fL (80.0-100.0); Mean Platelet Volume 7.8; Monocytes # (A) 0.2 k/uL (0-1.0); Monocytes % (A) 3 %; Neutrophils # (A) 6.5 k/uL (1.3-7.7); Neutrophils % (A) 88 %; Platelet Count 133 k/uL (150-450); RBC 3.66 m/uL (3.80-5.40); RDW 14.8 % (11.5-15.5)
[2020-04-15 08:34] LABS: Albumin 3.3 g/dL (3.5-5.0); Calcium 7.8 mg/dL (8.4-10.2); Potassium 4.2 mmol/L (3.5-5.1); Total Bilirubin 0.6 mg/dL (0.2-1.3); Total Protein 6.7 g/dL (6.3-8.2)
[2020-04-15] MEDS: IOPAMIDOL CONTRAST (ORAL USE) VIAL PO PRN ×2 (08:34→09:35)
[2020-04-15] MEDS ORDERED: ENOXAPARIN 80 MG/0.8 ML SYRINGE SQ SCH (09:00)
[2020-04-15] MEDS ORDERED: FAMOTIDINE 20 MG TAB PO SCH (09:00)
[2020-04-15] MEDS ORDERED: ENOXAPARIN 30 MG/0.3 ML SYRINGE SQ SCH (09:00)
[2020-04-15 10:53] LABS: Appearance,Urine Cloudy (Clear); Bacteria,Urine Occasional /hpf; Bilirubin,Urine Negative (Negative); Blood,Urine Moderate (Negative); Color,Urine Light Yellow; Glucose,Urine (UA) 4+ (Negative); Ketones,Urine Trace (Negative); Leukocyte Esterase,Urine Large (Negative); Mucus,Urine Rare /hpf; Nitrite,Urine Negative (Negative); Protein,Urine Trace (Negative); RBC,Urine 9 /hpf (0-5); Squamous Epithelial Cell,Urine 1 /hpf (0-4); Urobilinogen,Urine <2.0 mg/dL (<2.0); WBC,Urine >182 /hpf (0-5)
--- NOTE | 2020-04-15 11:01 | CT ---
EXAMINATION TYPE: CT abdomen pelvis wo con DATE OF EXAM: 04/15/2020 COMPARISON: 08/20/2019 HISTORY: ABDOMINAL PAIN CT DLP: 783.7 mGycm Examination of the solid and hollow viscera is limited given the lack of contrast. FINDINGS: LUNG BASES: No evidence for nodule. Small right-sided pleural effusion and patchy infiltrate. LIVER/GB: The gallbladder is unremarkable. No space-occupying hepatic lesion. PANCREAS: No pancreatic mass identified. No inflammatory process seen. SPLEEN: No evidence for splenomegaly. No intrasplenic lesions seen. ADRENALS: No adrenal nodules identified. No evidence for thickening. KIDNEYS: 3 mm right UPJ calculus resulting in mild right-sided hydronephrosis. Mild right renal edema . Underlying infection is difficult to exclude. Elongated calculus mid pole right kidney measures 8.5 mm. Multiple nonobstructing left-sided renal calculi noted measuring 8.5 mm and 4.3 mm. BOWEL: Appendix has a normal appearance. No evidence of bowel obstruction. No inflammatory process. Lymph nodes: No evidence for adenopathy greater than 1 cm. Abdominal aorta: Atheromatous changes seen. No evidence for aneurysm. Genital organs: No significant abnormality. Other: No significant abnormality. IMPRESSION: 1. 3 mm right UPJ calculus resulting in mild right-sided hydronephrosis. Mild right renal edema. Und erlying infection is difficult to exclude. 2.Small right-sided pleural effusion and patchy infiltrate.
[2020-04-15 11:05] VITALS: BMI 30.9
[2020-04-15 11:27] LABS: Glucose,Whole Blood 252 mg/dL (75-99)
--- NOTE | 2020-04-15 11:38 | MR ---
EXAMINATION TYPE: MR lumbar spine wo con DATE OF EXAM: 04/15/2020 COMPARISON: CT same date HISTORY: Rule out discitis, fever and pain TECHNIQUE: Multiplanar, multisequence images of the lumbar spine were acquired. L1-L2: Normal disc appearance without desiccation. No herniation, protrusion or disc bulging. No ca nal stenosis is present. Foramina are patent bilaterally. L2-L3: Posterior broad-based disc bulge causes minimal anterior mass effect on the thecal sac. L3-L4: Broad-based posterior disc bulge causes mild anterior mass effect on the thecal sac. No signif icant spinal stenosis. No evident foraminal encroachment. L4-L5: There is some mild increase signal along the disc space and T2-weighted sequences towards the right of midline and midline without endplate destruction. Posterior broad-based disc bulge causes mi nimal anterior mass effect on the thecal sac. Minimal anterolisthesis grade 1 at L4-5. Circumferentia l extension endplate disc complex causes foraminal encroachment greater on the right. Hypertrophic ch anges are present at the facets. L5-S1: There is facet arthropathy change. No foraminal encroachment on the right. The lateral extensi on of endplate disc complex causes some left-sided foraminal encroachment Lumbar segments are intact. No paraspinal masses are identified. Conus medullaris has a normal appe arance. Lumbar vertebral bodies show preserved height and alignment. Loss of disc height signal is gr eatest at L4-5, there is associated vacuum phenomenon, endplate discogenic marrow signal change, mult ilevel spondylosis. There is a mild spinal curvature. Right-sided hydronephrosis is present. Proximal right ureteral calculus seen on CT and bilateral renal calculi not well seen on MRI. There is luisa ioma present within the L4 vertebral body, L1 vertebral body noted IMPRESSION: Degenerative disc disease, facet arthropathy, multilevel foraminal encroachment. Right-sided hydronep hrosis, see dictated report CT abdomen pelvis same date.
[2020-04-15 17:03] LABS: Glucose,Whole Blood 353 mg/dL (75-99)
--- NOTE | 2020-04-15 18:31 | P.GSCN ---
History of Present Illness Consult date: 04/15/20 Reason for Consult: right sided ureteral stone History of present illness: Ms Sharp is a 54-year-old female admitted to the hospital with Nausea/vomiting, fever and diarrhea indicated it's been ongoing for the past three week. She is also been complaining of right sided abdominal pain. Denies any previous hx of kidney stones. She underwent a CT abd/pelvis which showed 3mm right sided UPJ stone with hydronephrosis, there was also evidence of bilateral non-obstructing stones Review of Systems - Constitutional Reports chills, Reports fever, Reports malaise - EENT Ears, nose, mouth and throat: Reports headache, Denies dysphagia - Cardiovascular Denies chest pain, Denies dyspnea on exertion - Respiratory Denies cough, Denies dyspnea - Gastrointestinal Reports abdominal pain, Reports diarrhea, Reports nausea, Reports vomiting - Genitourinary Genitourinary: Reports kidney stones, Denies dysuria, Denies flank pain Past Medical History Past Medical History: Diabetes Mellitus, Hyperlipidemia, Thyroid Disorder Additional Past Medical History / Comment(s): Pt states same symptoms-body aches/fever approximately 3 weeks ago which lasted 2 weeks, NIDDM type II, hypothyroid, past migraines, UTI-recent, bronchitis in past History of Any Multi-Drug Resistant Organisms: None Reported Past Surgical History: Heart Catheterization Additional Past Surgical History / Comment(s): R inguinal hernia repair, colonoscopy-normal, 2016 cardiac cath-normal. Past Anesthesia/Blood Transfusion Reactions: Postoperative Nausea & Vomiting (PONV) Past Psychological History: No Psychological Hx Reported Smoking Status: Never smoker Past Alcohol Use History: None Reported Past Drug Use History: None Reported - Past Family History Father Family Medical History: Coronary Artery Disease (CAD), Myocardial Infarction (M I) Additional Family Medical History / Comment(s): Pt does not know at what age father had UT. She states he of heart disease at the age of 62 yrs. Mother Family Medical History: Diabetes Mellitus Additional Family Medical History / Comment(s): Mother of sepsis. Brother(s) Family Medical History: Myocardial Infarction (UT) Additional Family Medical History / Comment(s): Brother had a UT at the age of 52 yrs. Sister(s) Family Medical History: Myocardial Infarction (UT) Additional Family Medical History / Comment(s): Sister had a UT at the age of 56yrs. Medications and Allergies Home Medications Medication Instructions Recorded Confirmed Type Levothyroxine Sodium [Synthroid] 125 mcg PO DAILY 11/04/15 04/14/20 History glipiZIDE [Glipizide] 5 mg PO BID 11/04/15 04/14/20 History Cholecalciferol [Vitamin D3 (25 1,000 unit PO DAILY 04/14/20 04/14/20 History Mcg = 1000 Iu)] Empagliflozin [Jardiance] 25 mg PO DAILY 04/14/20 04/14/20 History Hydrochlorothiazide [Hydrodiuril] 25 mg PO DAILY 04/14/20 04/14/20 History Multivitamins, Thera [Multivitamin 1 tab PO DAILY 04/14/20 04/14/20 History (formulary)] Vitamin E 400 unit PO DAILY 04/14/20 04/14/20 History Allergies Allergy/AdvReac Type Severity Reaction Status Date / Time No Known Allergies Allergy Verified 04/14/20 06:40 Surgical - Exam Vital Signs Temp Pulse Resp BP Pulse Ox 102.7 F H 103 H 16 114/72 97 04/13/20 22:59 04/13/20 22:59 04/13/20 22:59 04/13/20 22:59 04/13/20 22:59 - General well developed, well nourished - Eyes normal ocular movement - ENT normal mucosa, no hearing loss - Respiratory normal expansion, normal respiratory effort - Psychiatric oriented to time, oriented to person, oriented to place, speech is normal Results - Labs 04/15/20 07:45 04/15/20 07:45 Abnormal Lab Results - Last 24 Hours (Table) 04/14/20 04/14/20 04/14/20 Range/Units 16:43 20:59 23:21 RBC (3.80-5.40) m/uL Hgb (11.4-16.0) gm/dL Plt Count (150-450) k/uL Lymphocytes # (1.0-4.8) k/uL Sodium 130 L (137-145) mmol/L Carbon Dioxide 20 L (22-30) mmol/L BUN 36 H (7-17) mg/dL Creatinine 2.25 H (0.52-1.04) mg/dL Glucose 178 H (74-99) mg/dL POC Glucose (mg/dL) 282 H 217 H (75-99) mg/dL Calcium 7.0 L (8.4-10.2) mg/dL Alkaline Phosphatase (38-126) U/L C-Reactive Protein (<10.0) mg/L Albumin (3.5-5.0) g/dL Urine Appearance (Clear) Urine Protein (Negative) Urine Glucose (UA) (Negative) Urine Ketones (Negative) Urine Blood (Negative) Ur Leukocyte Esterase (Negative) Urine RBC (0-5) /hpf Urine WBC (0-5) /hpf Urine Bacteria (None) /hpf Urine Mucus (None) /hpf 04/15/20 04/15/20 04/15/20 Range/Units 07:17 07:45 07:45 RBC 3.66 L (3.80-5.40) m/uL Hgb 11.0 L (11.4-16.0) gm/dL Plt Count 133 L (150-450) k/uL Lymphocytes # 0.6 L (1.0-4.8) k/uL Sodium 136 L (137-145) mmol/L Carbon Dioxide 20 L (22-30) mmol/L BUN 36 H (7-17) mg/dL Creatinine 2.17 H (0.52-1.04) mg/dL Glucose 211 H (74-99) mg/dL POC Glucose (mg/dL) 216 H (75-99) mg/dL Calcium 7.8 L (8.4-10.2) mg/dL Alkaline Phosphatase 177 H (38-126) U/L C-Reactive Protein 411.0 H (<10.0) mg/L Albumin 3.3 L (3.5-5.0) g/dL Urine Appearance (Clear) Urine Protein (Negative) Urine Glucose (UA) (Negative) Urine Ketones (Negative) Urine Blood (Negative) Ur Leukocyte Esterase (Negative) Urine RBC (0-5) /hpf Urine WBC (0-5) /hpf Urine Bacteria (None) /hpf Urine Mucus (None) /hpf 04/15/20 04/15/20 Range/Units 10:00 11:26 RBC (3.80-5.40) m/uL Hgb (11.4-16.0) gm/dL Plt Count (150-450) k/uL Lymphocytes # (1.0-4.8) k/uL Sodium (137-145) mmol/L Carbon Dioxide (22-30) mmol/L BUN (7-17) mg/dL Creatinine (0.52-1.04) mg/dL Glucose (74-99) mg/dL POC Glucose (mg/dL) 252 H (75-99) mg/dL Calcium (8.4-10.2) mg/dL Alkaline Phosphatase (38-126) U/L C-Reactive Protein (<10.0) mg/L Albumin (3.5-5.0) g/dL Urine Appearance Cloudy H (Clear) Urine Protein Trace H (Negative) Urine Glucose (UA) 4+ H (Negative) Urine Ketones Trace H (Negative) Urine Blood Moderate H (Negative) Ur Leukocyte Esterase Large H (Negative) Urine RBC 9 H (0-5) /hpf Urine WBC >182 H (0-5) /hpf Urine Bacteria Occasional H (None) /hpf Urine Mucus Rare H (None) /hpf Microbiology - Last 24 Hours (Table) 04/13/20 23:56 Blood Culture Gram Stain - Preliminary Blood Blood Culture - Preliminary Proteus spec 04/13/20 23:56 Blood Culture - Final Blood Diabetes panel 04/14/20 04/15/20 Range/Units 23:21 07:45 Sodium 130 L 136 L (137-145) mmol/L Potassium 3.9 4.2 (3.5-5.1) mmol/L Chloride 103 105 (98-107) mmol/L Carbon Dioxide 20 L 20 L (22-30) mmol/L BUN 36 H 36 H (7-17) mg/dL Creatinine 2.25 H 2.17 H (0.52-1.04) mg/dL Glucose 178 H 211 H (74-99) mg/dL Calcium 7.0 L 7.8 L (8.4-10.2) mg/dL AST 35 (14-36) U/L ALT 25 (4-34) U/L Alkaline Phosphatase 177 H (38-126) U/L Total Protein 6.7 (6.3-8.2) g/dL Albumin 3.3 L (3.5-5.0) g/dL Calcium panel 04/14/20 04/15/20 Range/Units 23:21 07:45 Calcium 7.0 L 7.8 L (8.4-10.2) mg/dL Albumin 3.3 L (3.5-5.0) g/dL Pituitary panel 04/14/20 04/15/20 Range/Units 23:21 07:45 Sodium 130 L 136 L (137-145) mmol/L Potassium 3.9 4.2 (3.5-5.1) mmol/L Chloride 103 105 (98-107) mmol/L Carbon Dioxide 20 L 20 L (22-30) mmol/L BUN 36 H 36 H (7-17) mg/dL Creatinine 2.25 H 2.17 H (0.52-1.04) mg/dL Glucose 178 H 211 H (74-99) mg/dL Calcium 7.0 L 7.8 L (8.4-10.2) mg/dL Adrenal panel 04/14/20 04/15/20 Range/Units 23:21 07:45 Sodium 130 L 136 L (137-145) mmol/L Potassium 3.9 4.2 (3.5-5.1) mmol/L Chloride 103 105 (98-107) mmol/L Carbon Dioxide 20 L 20 L (22-30) mmol/L BUN 36 H 36 H (7-17) mg/dL Creatinine 2.25 H 2.17 H (0.52-1.04) mg/dL Glucose 178 H 211 H (74-99) mg/dL Calcium 7.0 L 7.8 L (8.4-10.2) mg/dL Total Bilirubin 0.6 (0.2-1.3) mg/dL AST 35 (14-36) U/L ALT 25 (4-34) U/L Alkaline Phosphatase 177 H (38-126) U/L Total Protein 6.7 (6.3-8.2) g/dL Albumin 3.3 L (3.5-5.0) g/dL Assessment and Plan Assessment: 54 yo female with hx of 3mm right sided UPJ stone and bactremia. VSS, no leucocytosis. Plan: -NPO past MN, OR tomorrow for right ureteral stent placement
[2020-04-15 20:11] LABS: Glucose,Whole Blood 243 mg/dL (75-99)
--- NOTE | 2020-04-15 21:55 | P.PN ---
Progress Note - Text Progress Note Date: 04/15/20 Chief Complaint: Fever History of presenting complaint: This is a pleasant 54-year-old patient of Dr. poe. Chronic stable medical conditions include diabetes mellitus type 2, hypothyroid,. Patient's 3 weeks ago started of with lower back pain shivering some nausea symptoms lasted for about 10 days. She was given symptomatic treatment by family doctor. Tyrone better for a week. Went back to work for a day. Symptoms started again. Same fever and chills. Denies any cough but noted that she was getting short of breath with exertion. She has some diarrhea yesterday. Appetite has been down. Patient also had cold sores a week ago. Given antiviral by family doctor. Also felt dizzy lightheaded. Decided to come in. Admitted with-positive blood cultures with Proteus secondary to pyelonephritis with right ureter stone right UP junction. Discitis ruled out. Started on IV Zosyn yesterday. By Dr. Aviles. Today-sitting up. Feels a bit better. Did tolerate some diet. On IV fluids IV Zosyn. Review of systems: Was done for constitutional, cardiovascular, GI, pulmonary. relevant finding as above Active Medications Acetaminophen (Tylenol Tab) 650 mg PO Q4HR PRN PRN Reason: Fever and/ or Pain Last Admin: 04/14/20 21:07 Dose: 650 mg Documented by: Al Hydroxide/Mg Hydroxide (Maalox) 15 ml PO Q6HR PRN PRN Reason: Indigestion Calcium Carbonate/Glycine (Tums) 1,000 mg PO Q4HR PRN PRN Reason: Dyspepsia Enoxaparin Sodium (Lovenox) 30 mg SQ DAILY [facility] Famotidine (Pepcid) 20 mg PO DAILY [facility] Glipizide (Glucotrol) 5 mg PO BID [facility] Last Admin: 04/15/20 07:29 Dose: 5 mg Documented by: Sodium Chloride (Saline 0.9%) 1,000 mls @ 130 mls/hr IV .Q7H42M [facility] Last Admin: 04/15/20 16:33 Dose: Not Given Documented by: Piperacillin Sod/Tazobactam (Sod 3.375 gm/ Sodium Chloride) 100 mls @ 25 mls/hr IVPB Q8H [facility] Last Admin: 04/15/20 16:26 Dose: 25 mls/hr Documented by: Insulin Aspart (Novolog) 0 unit SQ ACHS [facility]; Protocol Last Admin: 04/15/20 17:14 Dose: 8 unit Documented by: Lactulose (Cephulac) 20 gm PO DAILY PRN PRN Reason: Constipation Levothyroxine Sodium (Synthroid) 125 mcg PO 0630 [facility] Last Admin: 04/15/20 05:26 Dose: 125 mcg Documented by: Magnesium Hydroxide (Milk Of Magnesia) 2,400 mg PO DAILY PRN PRN Reason: Constipation Melatonin (Melatonin) 3 mg PO HS PRN PRN Reason: Insomnia Last Admin: 04/14/20 23:12 Dose: 3 mg Documented by: Morphine Sulfate (Morphine Sulfate (Inj)) 2 mg IVP Q6H PRN PRN Reason: Pain/Discomfort Last Admin: 04/14/20 10:46 Dose: 2 mg Documented by: Multivitamins (Theragran) 1 each PO DAILY [facility] Last Admin: 04/15/20 07:29 Dose: 1 each Documented by: Naloxone HCl (Narcan) 0.2 mg IV Q2M PRN PRN Reason: Opioid Reversal Jardiance ( Empagliflozin) 10 Mg Tab 25 mg PO DAILY [facility] Last Admin: 04/15/20 07:30 Dose: 25 mg Documented by: Vitamin E (Vitamin E) 400 unit PO DAILY [facility] Last Admin: 04/15/20 07:30 Dose: 400 unit Documented by: Physical examination: VITAL SIGNS: T-max 101.4 last night, afebrile today, 62, 18, 118/68, 98% room air GENERAL: Sitting up, feeling better EYES: Pupils equal. Conjunctiva normal. HEENT: External appearance of nose and ears normal, oral cavity grossly normal. NECK: JVD not raised; masses not palpable. HEART: First and second heart sounds are normal; no edema. LUNGS: Respiratory rate normal; clear to auscultation. ABDOMEN: Soft, nontender, liver spleen not palpable, no masses palpable. PSYCH: Alert and oriented x3; mood and affect normal. INVESTIGATIONS, reviewed in the clinical context: White count 10.5 hemoglobin 11 platelets 133 potassium 4.2 bun 36 creatinine 2.17 UA positive Computed tomography scan of the abdomen showing right-sided hydronephrosis, stone the right UP junction. Blood cultures-Proteus species Previous testing Lumbar spine MRI negative for discitis White count 6.6 hemoglobin 11.4 platelets 104 potassium 3.2 bun 39 creatinine 2.43 Blood glucose 168 ferritin 340 C-reactive protein 644 pro calcitonin 37.9 EKG tracing personally reviewed by me-normal sinus rhythm, poor R-wave progression Chest x-ray film personally reviewed by [id number] obvious infiltrate Assessment: -Acute severe pyelonephritis with sepsis from Proteus mirabilis. On the right side.-New diagnosis -Right secondary hydronephrosis from right UP junction stone. -Diabetes mellitus type 2 on oral hypoglycemic -Hypothyroid -Obesity BMI 30.9 -Hyponatremia -Acute kidney injury likely ATN and from sepsis. Plan: -Patient started on IV Zosyn and IV fluids. Urology was consulted was attributed to right ureteral stent. Care was discussed with the patient. Questions were answered. Also discussed with Dr. Lemus.
[2020-04-15] MEDS: MORPHINE SULFATE 2 MG/ML SYRINGE IVP PRN (21:58)
--- NOTE | 2020-04-15 23:20 | PN ---
PROGRESS NOTE DATE OF SERVICE: 04/15/2020 REASON FOR FOLLOWUP: Gram-negative bacteremia secondary to urinary source. INTERVAL HISTORY: The patient is currently afebrile. The patient is breathing comfortably. Some discomfort in the right flank area but no further nausea, vomiting or diarrhea. No chest pain, shortness of breath or cough. PHYSICAL EXAMINATION: Blood pressure 103/61 with a pulse of 86, temperature 99. She is 96% on room air. General description is a middle-aged female up in the room in no distress. RESPIRATORY SYSTEM: Unlabored breathing with decreased breath sounds at the base. No wheeze. HEART: S1, S2. Regular rate and rhythm. ABDOMEN: Soft. No tenderness. LABS: The patient did have a positive UA. Blood is showing Proteus mirabilis. A CT of abdomen and pelvis shows right-sided hydronephrosis. DIAGNOSTIC IMPRESSION AND PLAN: Patient admitted to hospital with sepsis. Source is a complicated UTI in this patient who did have mild right-sided hydronephrosis and edema. The patient is currently covered with Zosyn; to continue while waiting for the sensitivity on the cultures to finalize to determine her discharge antibiotics. Plan of care was discussed with the admitting physician. MMODL / IJN: [id number] /
[2020-04-16] MEDS: SODIUM CHLORIDE 0.9% 1,000 ML IV SCH ×4 (03:43→20:22)
[2020-04-16] MEDS: LEVOTHYROXINE 125 MCG TAB PO SCH (06:15)
[2020-04-16 07:20] LABS: Glucose,Whole Blood 158 mg/dL (75-99)
[2020-04-16] MEDS: MULTIVITAMINS, THERA 1 EACH TAB PO SCH (07:54)
[2020-04-16] MEDS: glipiZIDE 5 MG TAB PO SCH ×2 (07:54→20:21)
[2020-04-16] MEDS: INSULIN ASPART (NovoLOG) 100 UNIT/ML VIAL SQ SCH ×6 (07:54→20:21)
[2020-04-16] MEDS: VITAMIN E (DL,TOCOPHERYL ACET) 400 UNIT CAP PO SCH (07:54)
[2020-04-16] MEDS: PIPERACILLIN-TAZOBACTAM 3.375 GM in SODIUM CHLORIDE 0.9% 100 ML IVPB SCH ×3 (07:54→23:19)
[2020-04-16] MEDS: FAMOTIDINE 20 MG TAB PO SCH (07:55)
[2020-04-16] MEDS: JARDIANCE 10 MG PO SCH (07:55)
[2020-04-16] MEDS ORDERED: IV FLUID CONTINUATION 1,000 ML IV ONE (09:45)
[2020-04-16 09:46] LABS: Calcium 8.3 mg/dL (8.4-10.2); Potassium 3.8 mmol/L (3.5-5.1); Total Bilirubin 0.5 mg/dL (0.2-1.3); Total Protein 6.3 g/dL (6.3-8.2)
[2020-04-16] MEDS ORDERED: ONDANSETRON 4 MG/2 ML VIAL IVP ONE (09:48)
[2020-04-16] MEDS ORDERED: DEXAMETHASONE SOD PHOSPHATE 10 MG/ML 1 ML VIAL IV ONE (09:49)
[2020-04-16] MEDS ORDERED: fentaNYL (PF) 50 MCG/ML 2 ML AMP ONE (10:00)
[2020-04-16] MEDS ORDERED: LIDOCAINE 1% INJ 10MG/ML (20 ML MDV) ONE (10:00)
[2020-04-16] MEDS ORDERED: MIDAZOLAM 2 MG/2 ML VIAL ONE (10:00)
[2020-04-16] MEDS ORDERED: PROPOFOL 10 MG/ML 20 ML VIAL IV ONE (10:00)
--- NOTE | 2020-04-16 10:09 | P.PN ---
Subjective Progress Note Date: 04/16/20 Afebrile overnight, still having chills. creat at 1.99 trending down from 2.17 Objective - Vital Signs Vital signs: Vital Signs Temp 98.7 F 04/16/20 09:40 Pulse 60 04/16/20 09:40 Resp 16 04/16/20 09:40 BP 115/67 04/16/20 08:02 Pulse Ox 98 04/16/20 09:40 Intake & Output 04/15/20 04/16/20 04/16/20 18:59 06:59 18:59 Weight 81.647 kg 81.647 kg Other: Voiding Method Toilet Toilet # Voids 2 1 - Constitutional General appearance: Present: no acute distress - Psychiatric Psychiatric: Present: A&O x's 3, appropriate affect - Labs CBC & Chem 7: 04/15/20 07:45 04/16/20 09:05 Labs: Abnormal Lab Results - Last 24 Hours (Table) 04/15/20 04/15/20 04/15/20 Range/Units 07:45 10:00 11:26 Chloride (98-107) mmol/L BUN (7-17) mg/dL Creatinine (0.52-1.04) mg/dL Glucose (74-99) mg/dL POC Glucose (mg/dL) 252 H (75-99) mg/dL Calcium (8.4-10.2) mg/dL Alkaline Phosphatase (38-126) U/L Albumin (3.5-5.0) g/dL Urine Appearance Cloudy H (Clear) Urine Protein Trace H (Negative) Urine Glucose (UA) 4+ H (Negative) Urine Ketones Trace H (Negative) Urine Blood Moderate H (Negative) Ur Leukocyte Esterase Large H (Negative) Urine RBC 9 H (0-5) /hpf Urine WBC >182 H (0-5) /hpf Urine Bacteria Occasional H (None) /hpf Urine Mucus Rare H (None) /hpf CMV IgG Ab Reactive H (Non-Reactive) 04/15/20 04/15/20 04/16/20 Range/Units 17:01 20:10 07:18 Chloride (98-107) mmol/L BUN (7-17) mg/dL Creatinine (0.52-1.04) mg/dL Glucose (74-99) mg/dL POC Glucose (mg/dL) 353 H 243 H 158 H (75-99) mg/dL Calcium (8.4-10.2) mg/dL Alkaline Phosphatase (38-126) U/L Albumin (3.5-5.0) g/dL Urine Appearance (Clear) Urine Protein (Negative) Urine Glucose (UA) (Negative) Urine Ketones (Negative) Urine Blood (Negative) Ur Leukocyte Esterase (Negative) Urine RBC (0-5) /hpf Urine WBC (0-5) /hpf Urine Bacteria (None) /hpf Urine Mucus (None) /hpf CMV IgG Ab (Non-Reactive) 04/16/20 Range/Units 09:05 Chloride 108 H (98-107) mmol/L BUN 36 H (7-17) mg/dL Creatinine 1.99 H (0.52-1.04) mg/dL Glucose 143 H (74-99) mg/dL POC Glucose (mg/dL) (75-99) mg/dL Calcium 8.3 L (8.4-10.2) mg/dL Alkaline Phosphatase 168 H (38-126) U/L Albumin 3.0 L (3.5-5.0) g/dL Urine Appearance (Clear) Urine Protein (Negative) Urine Glucose (UA) (Negative) Urine Ketones (Negative) Urine Blood (Negative) Ur Leukocyte Esterase (Negative) Urine RBC (0-5) /hpf Urine WBC (0-5) /hpf Urine Bacteria (None) /hpf Urine Mucus (None) /hpf CMV IgG Ab (Non-Reactive) Microbiology - Last 24 Hours (Table) 04/13/20 23:56 Blood Culture Gram Stain - Final Blood Blood Culture - Final Proteus mirabilis 04/15/20 10:00 Urine Culture - Preliminary Urine,Voided Assessment and Plan Assessment: 54 yo female with hx of 3mm right sided UPJ stone and bactremia. VSS, no leucocytosis. creat 1.99 from baseline of 1-1.1 Plan: -OR for right ureteral stent placement -Continue abx
[2020-04-16 10:23] LABS: Basophils % (A) 0 %; Eosinophils % (A) 0 %; HCT 32.2 % (34.0-46.0); HGB 10.3 gm/dL (11.4-16.0); Hypochromasia Slight; Lymphocytes # (A) 0.9 k/uL (1.0-4.8); Lymphocytes % (A) 7 %; MCH 31.3 pg (25.0-35.0); MCV 97.8 fL (80.0-100.0); Mean Platelet Volume 7.7; Monocytes # (A) 0.4 k/uL (0-1.0); Monocytes % (A) 3 %; Neutrophils # (A) 11.2 k/uL (1.3-7.7); Neutrophils % (A) 88 %; Platelet Count 167 k/uL (150-450); RBC 3.29 m/uL (3.80-5.40); WBC 12.7 k/uL (3.8-10.6)
--- NOTE | 2020-04-16 10:54 | P.OP ---
Date of Procedure: 04/16/20 Preoperative Diagnosis: right sided ureteral stone Postoperative Diagnosis: same Procedure(s) Performed: cystoscopy, right sided stent placement Implants: 6 Fr X 24 cm stent Anesthesia: TY Surgeon: Royal Acosta Estimated Blood Loss (ml): 0 Pathology: none sent Condition: stable Disposition: PACU Indications for Procedure: Ms Sharp is 54 yo female with hx of 3mm right sided UPJ stone. She developed bactremia secondary to her obstructing stone. I discussed with her given her bactremia I recommend we proceed with ureteral stent placement. I discussed with her the risk which include bleeding, infection, worsening of her sepsis. She understood all risk and agreed to proceed Operative Findings: cloudy urine from right collecting system Description of Procedure: the Patient was brought to the operating room, general anesthesia was induced. She was prepped and draped in sterile fashion placed in a dorsal lithotomy position. Cystoscopy fitted with a 22-Belarusian sheath was inserted per urethra. Cystoscopy was performed showed no abnormality within the bladder. Attention was then carried to the right ureteral orifice. A a sensor wire was advanced through the scope up into the renal pelvis. Next a 6-Bel[place]ian by 24 cm stent was passed over the wire, the proximal curl was visualized on fluoroscopy and the distal curl was visualized using the cystoscope. cloudy urine noticed draining from the stent. The bladder was emptied at the end of the case. The patient tolerated the procedure well was taken to PACU in stable condition
[2020-04-16 11:02] LABS: Glucose,Whole Blood 127 mg/dL (75-99)
--- NOTE | 2020-04-16 11:07 | FL ---
EXAMINATION TYPE: FL fluoroscopy <1hr DATE OF EXAM: 04/16/2020 COMPARISON: NONE HISTORY: Stent placement Fluoroscopy support supplied to the referring clinician. See dictated report from urology, single in traoperative image, 6 seconds fluoroscopy time supplied
[2020-04-16 11:39] LABS: Glucose,Whole Blood 124 mg/dL (75-99)
[2020-04-16] MEDS: ENOXAPARIN 30 MG/0.3 ML SYRINGE SQ SCH (12:50)
[2020-04-16 16:47] LABS: Glucose,Whole Blood 373 mg/dL (75-99)
[2020-04-16 20:00] LABS: Glucose,Whole Blood 385 mg/dL (75-99)
[2020-04-16] MEDS: MORPHINE SULFATE 2 MG/ML SYRINGE IVP PRN (21:05)
--- NOTE | 2020-04-16 22:00 | P.PN ---
Progress Note - Text Progress Note Date: 04/16/20 Chief Complaint: Fever History of presenting complaint: This is a pleasant 54-year-old patient of Dr. poe. Chronic stable medical conditions include diabetes mellitus type 2, hypothyroid,. Patient's 3 weeks ago started of with lower back pain shivering some nausea symptoms lasted for about 10 days. She was given symptomatic treatment by family doctor. [place] better for a week. Went back to work for a day. Symptoms started again. Same fever and chills. Denies any cough but noted that she was getting short of breath with exertion. She has some diarrhea yesterday. Appetite has been down. Patient also had cold sores a week ago. Given antiviral by family doctor. Also felt dizzy lightheaded. Decided to come in. Admitted with-positive blood cultures with Proteus secondary to pyelonephritis with right ureter stone right UP junction. Discitis ruled out. Started on IV Zosyn yesterday. By Dr. Aviles. Today-patient taken to the operating room today. Had a stent placed on the right ureter. Cloudy urine was noted. Patient is feeling much better this evening. No further fevers. Resting Review of systems: Was done for constitutional, cardiovascular, GI, pulmonary. relevant finding as above Active Medications Acetaminophen (Tylenol Tab) 650 mg PO Q4HR PRN PRN Reason: Fever and/ or Pain Last Admin: 04/14/20 21:07 Dose: 650 mg Documented by: Al Hydroxide/Mg Hydroxide (Maalox) 15 ml PO Q6HR PRN PRN Reason: Indigestion Calcium Carbonate/Glycine (Tums) 1,000 mg PO Q4HR PRN PRN Reason: Dyspepsia Enoxaparin Sodium (Lovenox) 30 mg SQ DAILY [facility] Last Admin: 04/16/20 12:50 Dose: 30 mg Documented by: Famotidine (Pepcid) 20 mg PO DAILY [facility] Last Admin: 04/16/20 07:55 Dose: Not Given Documented by: Glipizide (Glucotrol) 5 mg PO BID [facility] Last Admin: 04/16/20 20:21 Dose: 5 mg Documented by: Sodium Chloride (Saline 0.9%) 1,000 mls @ 130 mls/hr IV .Q7H42M [facility] Last Admin: 04/16/20 20:22 Dose: 130 mls/hr Documented by: Piperacillin Sod/Tazobactam (Sod 3.375 gm/ Sodium Chloride) 100 mls @ 25 mls/hr IVPB Q8H [facility] Last Admin: 04/16/20 16:18 Dose: 25 mls/hr Documented by: Insulin Aspart (Novolog) 0 unit SQ ACHS [facility]; Protocol Last Admin: 04/16/20 20:21 Dose: 7 unit Documented by: Lactulose (Cephulac) 20 gm PO DAILY PRN PRN Reason: Constipation Levothyroxine Sodium (Synthroid) 125 mcg PO 0630 [facility] Last Admin: 04/16/20 06:15 Dose: Not Given Documented by: Magnesium Hydroxide (Milk Of Magnesia) 2,400 mg PO DAILY PRN PRN Reason: Constipation Melatonin (Melatonin) 3 mg PO HS PRN PRN Reason: Insomnia Last Admin: 04/14/20 23:12 Dose: 3 mg Documented by: Morphine Sulfate (Morphine Sulfate (Inj)) 2 mg IVP Q6H PRN PRN Reason: Pain/Discomfort Last Admin: 04/16/20 21:05 Dose: 2 mg Documented by: Multivitamins (Theragran) 1 each PO DAILY [facility] Last Admin: 04/16/20 07:54 Dose: Not Given Documented by: Naloxone HCl (Narcan) 0.2 mg IV Q2M PRN PRN Reason: Opioid Reversal Jardiance ( Empagliflozin) 10 Mg Tab 25 mg PO DAILY [facility] Last Admin: 04/16/20 07:55 Dose: Not Given Documented by: Vitamin E (Vitamin E) 400 unit PO DAILY [facility] Last Admin: 04/16/20 07:54 Dose: Not Given Documented by: Physical examination: VITAL SIGNS: 97.6, 69, 16, 110/64, 98% room air GENERAL: Laying in bed, rather cheerful EYES: Pupils equal. Conjunctiva normal. HEENT: External appearance of nose and ears normal, oral cavity grossly normal. NECK: JVD not raised; masses not palpable. HEART: First and second heart sounds are normal; no edema. LUNGS: Respiratory rate normal; clear to auscultation. ABDOMEN: Soft, nontender, liver spleen not palpable, no masses palpable. PSYCH: Alert and oriented x3; mood and affect normal. INVESTIGATIONS, reviewed in the clinical context: White count 12.70 woman 10.3 potassium 3.8 bun 3621.99 Previous testing Lumbar spine MRI negative for discitis White count 6.6 hemoglobin 11.4 platelets 104 potassium 3.2 bun 39 creatinine 2.43 Blood glucose 168 ferritin 340 C-reactive protein 644 pro calcitonin 37.9 EKG tracing personally reviewed by me-normal sinus rhythm, poor R-wave progression Chest x-ray film personally reviewed by [id number] obvious infiltrate Computed tomography scan of the abdomen showing right-sided hydronephrosis, stone the right UP junction. Blood cultures-Proteus species Assessment: -Acute severe pyelonephritis with sepsis from Proteus mirabilis. On the right side.-New diagnosis -Right secondary hydronephrosis from right UP junction stone.-Followed by cystoscopy and right-sided unilateral stent placement. -Diabetes mellitus type 2 on oral hypoglycemic -Hypothyroid -Obesity BMI 30.9 -Hyponatremia -Acute kidney injury likely ATN and from sepsis. Plan: Patient to continue with IV Zosyn. Continue with IV fluids. Repeat labs in the morning. Care was discussed with the patient. Repeat cultures are pending.
--- NOTE | 2020-04-16 22:57 | PN ---
PROGRESS NOTE DATE OF SERVICE: 04/16/2020 REASON FOR FOLLOWUP: Proteus mirabilis bacteremia secondary to complicated UTI infection. INTERVAL HISTORY: Patient is afebrile. The patient was taken to the OR this morning. This patient is status post cystoscopy and right-sided ureteral stent placement. Patient tolerated the procedure. Denies having any chest pain. No shortness of breath or cough. No nausea, vomiting or diarrhea. PHYSICAL EXAMINATION: Blood pressure is 110/64 with a pulse of 79, temperature of 97.6. She is 98% on room air. General description is a middle-aged female up in the chair in no distress. Respiratory system: Unlabored breathing, clear to auscultation anteriorly. Heart S1, S2. Regular rate and rhythm. Abdomen soft, no tenderness. LABS: Hemoglobin is 10.8, white count 12.7, BUN of 36, creatinine 1.9. Urine with Proteus mirabilis, sensitive pathogen. DIAGNOSTIC IMPRESSION AND PLAN: Patient with Proteus mirabilis bacteremia secondary to complicated urinary tract infection in this patient who did have right-sided hydronephrosis status post stent placement. Plan is to finish discharge antibiotics to Rocephin 2 g daily and hopefully finish therapy with oral antibiotic on discharge once she is clinically improved. Continue supportive care. MMODL / IJN: [id number] /
[2020-04-17] MEDS: LEVOTHYROXINE 125 MCG TAB PO SCH (05:37)
[2020-04-17] MEDS: SODIUM CHLORIDE 0.9% 1,000 ML IV SCH ×3 (05:38→21:40)
[2020-04-17] MEDS: PIPERACILLIN-TAZOBACTAM 3.375 GM in SODIUM CHLORIDE 0.9% 100 ML IVPB SCH (06:20)
[2020-04-17 06:48] LABS: Glucose,Whole Blood 186 mg/dL (75-99)
[2020-04-17] MEDS: INSULIN ASPART (NovoLOG) 100 UNIT/ML VIAL SQ SCH ×4 (07:35→20:43)
[2020-04-17] MEDS: JARDIANCE 10 MG PO SCH (07:35)
[2020-04-17] MEDS: MULTIVITAMINS, THERA 1 EACH TAB PO SCH (07:37)
[2020-04-17] MEDS: glipiZIDE 5 MG TAB PO SCH ×2 (07:37→21:40)
[2020-04-17] MEDS: FAMOTIDINE 20 MG TAB PO SCH (07:38)
[2020-04-17] MEDS: VITAMIN E (DL,TOCOPHERYL ACET) 400 UNIT CAP PO SCH (07:38)
[2020-04-17] MEDS: ENOXAPARIN 30 MG/0.3 ML SYRINGE SQ SCH (07:38)
[2020-04-17 11:04] LABS: Basophils # (A) 0.1 k/uL (0-0.2); Basophils % (A) 1 %; Eosinophils % (A) 0 %; HCT 35.4 % (34.0-46.0); HGB 10.8 gm/dL (11.4-16.0); Hypochromasia Slight; Lymphocytes % (A) 8 %; MCH 29.9 pg (25.0-35.0); MCHC 30.5 g/dL (31.0-37.0); MCV 98.1 fL (80.0-100.0); Mean Platelet Volume 7.9; Monocytes # (A) 0.4 k/uL (0-1.0); Monocytes % (A) 3 %; Neutrophils # (A) 11.8 k/uL (1.3-7.7); Neutrophils % (A) 88 %; Platelet Count 206 k/uL (150-450); RBC 3.61 m/uL (3.80-5.40); RDW 15.4 % (11.5-15.5); WBC 13.5 k/uL (3.8-10.6)
[2020-04-17 11:18] LABS: Calcium 8.1 mg/dL (8.4-10.2); Potassium 4.4 mmol/L (3.5-5.1)
[2020-04-17 11:43] LABS: Glucose,Whole Blood 237 mg/dL (75-99)
[2020-04-17 16:56] LABS: Glucose,Whole Blood 253 mg/dL (75-99)
--- NOTE | 2020-04-17 17:38 | P.PN ---
Progress Note - Text Progress Note Date: 04/17/20 Chief Complaint: Fever History of presenting complaint: This is a pleasant 54-year-old patient of Dr. poe. Chronic stable medical conditions include diabetes mellitus type 2, hypothyroid,. Patient's 3 weeks ago started of with lower back pain shivering some nausea symptoms lasted for about 10 days. She was given symptomatic treatment by family doctor. [place] better for a week. Went back to work for a day. Symptoms started again. Same fever and chills. Denies any cough but noted that she was getting short of breath with exertion. She has some diarrhea yesterday. Appetite has been down. Patient also had cold sores a week ago. Given antiviral by family doctor. Also felt dizzy lightheaded. Decided to come in. Admitted with-positive blood cultures with Proteus secondary to pyelonephritis with right ureter stone right UP junction. Discitis ruled out. IV Zosyn On April 16 underwent right ureter stent placement. Today-feeling better. It's a birthday today. Feels is visiting. Decreased flank pain. No fever no chills. Review of systems: Was done for constitutional, cardiovascular, GI, pulmonary. relevant finding as above Active Medications Acetaminophen (Tylenol Tab) 650 mg PO Q4HR PRN PRN Reason: Fever and/ or Pain Last Admin: 04/14/20 21:07 Dose: 650 mg Documented by: Al Hydroxide/Mg Hydroxide (Maalox) 15 ml PO Q6HR PRN PRN Reason: Indigestion Calcium Carbonate/Glycine (Tums) 1,000 mg PO Q4HR PRN PRN Reason: Dyspepsia Enoxaparin Sodium (Lovenox) 30 mg SQ DAILY [facility] Last Admin: 04/17/20 07:38 Dose: 30 mg Documented by: Famotidine (Pepcid) 20 mg PO DAILY [facility] Last Admin: 04/17/20 07:38 Dose: 20 mg Documented by: Glipizide (Glucotrol) 5 mg PO BID [facility] Last Admin: 04/17/20 07:37 Dose: 5 mg Documented by: Sodium Chloride (Saline 0.9%) 1,000 mls @ 130 mls/hr IV .Q7H42M [facility] Last Admin: 04/17/20 16:14 Dose: 130 mls/hr Documented by: Ceftriaxone Sodium 2 gm/ (Sodium Chloride) 50 mls @ 100 mls/hr IVPB Q24HR [facility] Last Admin: 04/17/20 16:13 Dose: 100 mls/hr Documented by: Insulin Aspart (Novolog) 0 unit SQ ACHS [facility]; Protocol Last Admin: 04/17/20 12:38 Dose: 3 unit Documented by: Lactulose (Cephulac) 20 gm PO DAILY PRN PRN Reason: Constipation Levothyroxine Sodium (Synthroid) 125 mcg PO 0630 [facility] Last Admin: 04/17/20 05:37 Dose: 125 mcg Documented by: Magnesium Hydroxide (Milk Of Magnesia) 2,400 mg PO DAILY PRN PRN Reason: Constipation Melatonin (Melatonin) 3 mg PO HS PRN PRN Reason: Insomnia Last Admin: 04/14/20 23:12 Dose: 3 mg Documented by: Morphine Sulfate (Morphine Sulfate (Inj)) 2 mg IVP Q6H PRN PRN Reason: Pain/Discomfort Last Admin: 04/16/20 21:05 Dose: 2 mg Documented by: Multivitamins (Theragran) 1 each PO DAILY [facility] Last Admin: 04/17/20 07:37 Dose: 1 each Documented by: Naloxone HCl (Narcan) 0.2 mg IV Q2M PRN PRN Reason: Opioid Reversal Jardiance ( Empagliflozin) 10 Mg Tab 25 mg PO DAILY [facility] Last Admin: 04/17/20 07:35 Dose: 25 mg Documented by: Vitamin E (Vitamin E) 400 unit PO DAILY [facility] Last Admin: 04/17/20 07:38 Dose: 400 unit Documented by: Physical examination: VITAL SIGNS: 97.3, 69, 18, 147/71, 98% room air GENERAL: Sitting up, comfortable EYES: Pupils equal. Conjunctiva normal. HEENT: External appearance of nose and ears normal, oral cavity grossly normal. NECK: JVD not raised; masses not palpable. HEART: First and second heart sounds are normal; no edema. LUNGS: Respiratory rate normal; clear to auscultation. ABDOMEN: Soft, nontender, liver spleen not palpable, no masses palpable. PSYCH: Alert and oriented x3; mood and affect normal. INVESTIGATIONS, reviewed in the clinical context: White count 13.5 hemoglobin 10.8 potassium 4.4 bicarb 21 bun 45 creatinine 1.77 Previous testing Lumbar spine MRI negative for discitis White count 6.6 hemoglobin 11.4 platelets 104 potassium 3.2 bun 39 creatinine 2.43 Blood glucose 168 ferritin 340 C-reactive protein 644 pro calcitonin 37.9 EKG tracing personally reviewed by me-normal sinus rhythm, poor R-wave progression Chest x-ray film personally reviewed by [id number] obvious infiltrate Computed tomography scan of the abdomen showing right-sided hydronephrosis, stone the right UP junction. April 13 Blood cultures-Proteus species: April 15 blood culture negative to low Urine culture-Proteus mirabilis Assessment: -Acute severe pyelonephritis with sepsis from Proteus mirabilis. On the right side.- -Right secondary hydronephrosis from right UP junction stone.-Followed by cystoscopy and right-sided unilateral stent placement. -Diabetes mellitus type 2 on oral hypoglycemic-uncontrolled with hypoglycemia -Hypothyroid -Obesity BMI 30.Hyponatremia -Acute kidney injury likely ATN and from sepsis.-Slow to respond -Metabolic acidosis from kidney failure Plan: -Continue with IV fluids. Discussed with the patient. Current IV Zosyn. Repeat blood culture from April 15 is negative currently. Follow with ID.
[2020-04-17 20:43] LABS: Glucose,Whole Blood 124 mg/dL (75-99)
[2020-04-17] MEDS: MORPHINE SULFATE 2 MG/ML SYRINGE IVP PRN (21:39)
--- NOTE | 2020-04-17 22:48 | PN ---
PROGRESS NOTE DATE OF SERVICE: 04/17/2020 REASON FOR FOLLOWUP: Proteus mirabilis UTI with bacteremia. INTERVAL HISTORY: Patient is currently afebrile. The patient is breathing comfortably. Patient denies having any chest pain or shortness of breath or cough. No further nausea, vomiting, flank pain, or any diarrhea. On examination, blood pressure is 120/71 with a pulse of 73, temperature 98.1. She is 99% on room air. General description: The patient is a middle-aged female up in the chair in no distress. Respiratory system: Unlabored breathing, clear to auscultation anteriorly. Heart S1, S2. Regular rate and rhythm. Abdomen soft, no tenderness. LABS: Creatinine 1.77. White count slightly up at 13.5. Urine with ESBL though blood culture was not ESBL. Repeat blood culture has been negative. DIAGNOSTIC IMPRESSION AND PLAN: Patient with Proteus mirabilis bacteremia, source likely urinary in this patient who did have a complicated UTI status post cystoscopy with ureteral stent placement. We will keep the patient on Rocephin 2 g daily to cover for the bacteremia. We will repeat UA and cultures and monitor clinical course closely. Family at the bedside. Questions were answered. MMODL / IJN: [id number] /
[2020-04-17 23:48] LABS: Appearance,Urine Cloudy (Clear); Bacteria,Urine Rare /hpf; Bilirubin,Urine Negative (Negative); Blood,Urine Large (Negative); Color,Urine Yellow; Glucose,Urine (UA) 4+ (Negative); Ketones,Urine Negative (Negative); Leukocyte Esterase,Urine Large (Negative); Mucus,Urine Rare /hpf; Nitrite,Urine Negative (Negative); Protein,Urine 1+ (Negative); RBC,Urine 120 /hpf (0-5); Specific Gravity,Urine 1.015 (1.001-1.035); Squamous Epithelial Cell,Urine 2 /hpf (0-4); Urobilinogen,Urine <2.0 mg/dL (<2.0); WBC,Urine 146 /hpf (0-5)
[2020-04-18] MEDS: LEVOTHYROXINE 125 MCG TAB PO SCH (05:23)
[2020-04-18] MEDS: SODIUM CHLORIDE 0.9% 1,000 ML IV SCH ×3 (05:23→20:55)
[2020-04-18 07:13] LABS: Glucose,Whole Blood 89 mg/dL (75-99)
[2020-04-18] MEDS: INSULIN ASPART (NovoLOG) 100 UNIT/ML VIAL SQ SCH ×4 (07:24→20:49)
[2020-04-18] MEDS: ENOXAPARIN 30 MG/0.3 ML SYRINGE SQ SCH (08:01)
[2020-04-18] MEDS: FAMOTIDINE 20 MG TAB PO SCH (08:01)
[2020-04-18] MEDS: JARDIANCE 10 MG PO SCH (08:01)
[2020-04-18] MEDS: glipiZIDE 5 MG TAB PO SCH ×2 (08:02→20:54)
[2020-04-18] MEDS: MULTIVITAMINS, THERA 1 EACH TAB PO SCH (08:02)
[2020-04-18] MEDS: ACETAMINOPHEN TAB 325 MG TAB PO PRN (08:12)
[2020-04-18 09:52] LABS: HCT 33.9 % (34.0-46.0); HGB 10.5 gm/dL (11.4-16.0); MCV 96.6 fL (80.0-100.0); Mean Platelet Volume 7.7; Platelet Count 213 k/uL (150-450); RBC 3.51 m/uL (3.80-5.40); RDW 15.5 % (11.5-15.5); WBC 12.1 k/uL (3.8-10.6)
[2020-04-18 10:10] LABS: Calcium 7.8 mg/dL (8.4-10.2); Potassium 4.3 mmol/L (3.5-5.1)
[2020-04-18] MEDS: VITAMIN E (DL,TOCOPHERYL ACET) 400 UNIT CAP PO SCH (10:31)
--- NOTE | 2020-04-18 11:12 | P.PN ---
Subjective Progress Note Date: 04/18/20 Afebrile overnight, chills resolved. Denies any flank pain Objective - Vital Signs Vital signs: Vital Signs Temp 98.2 F 04/18/20 07:00 Pulse 75 04/18/20 08:00 Resp 16 04/18/20 08:00 BP 125/74 04/18/20 07:00 Pulse Ox 99 04/18/20 07:00 Intake & Output 04/17/20 04/18/20 04/18/20 18:59 06:59 18:59 Other: Voiding Method Toilet Toilet Toilet # Voids 2 3 - Constitutional General appearance: Present: cooperative, no acute distress - EENT ENT: Present: hearing grossly normal - Psychiatric Psychiatric: Present: A&O x's 3 - Labs CBC & Chem 7: 04/18/20 09:05 04/18/20 09:05 Labs: Abnormal Lab Results - Last 24 Hours (Table) 04/17/20 04/17/20 04/17/20 Range/Units 10:24 11:42 16:55 WBC (3.8-10.6) k/uL RBC (3.80-5.40) m/uL Hgb (11.4-16.0) gm/dL Hct (34.0-46.0) % Sodium (137-145) mmol/L Chloride 109 H (98-107) mmol/L Carbon Dioxide 21 L (22-30) mmol/L BUN 45 H (7-17) mg/dL Creatinine 1.77 H (0.52-1.04) mg/dL Glucose 248 H (74-99) mg/dL POC Glucose (mg/dL) 237 H 253 H (75-99) mg/dL Calcium 8.1 L (8.4-10.2) mg/dL Urine Appearance (Clear) Urine Protein (Negative) Urine Glucose (UA) (Negative) Urine Blood (Negative) Ur Leukocyte Esterase (Negative) Urine RBC (0-5) /hpf Urine WBC (0-5) /hpf Urine WBC Clumps (None) /hpf Urine Bacteria (None) /hpf Urine Mucus (None) /hpf 04/17/20 04/17/20 04/18/20 Range/Units 20:40 22:30 09:05 WBC (3.8-10.6) k/uL RBC (3.80-5.40) m/uL Hgb (11.4-16.0) gm/dL Hct (34.0-46.0) % Sodium 135 L (137-145) mmol/L Chloride 108 H (98-107) mmol/L Carbon Dioxide 20 L (22-30) mmol/L BUN 35 H (7-17) mg/dL Creatinine 1.58 H (0.52-1.04) mg/dL Glucose 171 H (74-99) mg/dL POC Glucose (mg/dL) 124 H (75-99) mg/dL Calcium 7.8 L (8.4-10.2) mg/dL Urine Appearance Cloudy H (Clear) Urine Protein 1+ H (Negative) Urine Glucose (UA) 4+ H (Negative) Urine Blood Large H (Negative) Ur Leukocyte Esterase Large H (Negative) Urine RBC 120 H (0-5) /hpf Urine WBC 146 H (0-5) /hpf Urine WBC Clumps Few H (None) /hpf Urine Bacteria Rare H (None) /hpf Urine Mucus Rare H (None) /hpf 04/18/20 Range/Units 09:05 WBC 12.1 H (3.8-10.6) k/uL RBC 3.51 L (3.80-5.40) m/uL Hgb 10.5 L (11.4-16.0) gm/dL Hct 33.9 L (34.0-46.0) % Sodium (137-145) mmol/L Chloride (98-107) mmol/L Carbon Dioxide (22-30) mmol/L BUN (7-17) mg/dL Creatinine (0.52-1.04) mg/dL Glucose (74-99) mg/dL POC Glucose (mg/dL) (75-99) mg/dL Calcium (8.4-10.2) mg/dL Urine Appearance (Clear) Urine Protein (Negative) Urine Glucose (UA) (Negative) Urine Blood (Negative) Ur Leukocyte Esterase (Negative) Urine RBC (0-5) /hpf Urine WBC (0-5) /hpf Urine WBC Clumps (None) /hpf Urine Bacteria (None) /hpf Urine Mucus (None) /hpf Microbiology - Last 24 Hours (Table) 04/15/20 07:45 Blood Culture - Preliminary Blood No Growth after 72 hours 04/15/20 10:00 Urine Culture - Final Urine,Voided Proteus mirabilis Assessment and Plan Assessment: 54 yo female with hx of 3mm right sided UPJ stone and bactremia. POD #2 S/P stent placement Plan: -Ok for discharge from urology standpoint, can f/u in 1-2 weeks in clinic
[2020-04-18 11:25] LABS: Glucose,Whole Blood 170 mg/dL (75-99)
[2020-04-18 16:21] LABS: Glucose,Whole Blood 223 mg/dL (75-99)
[2020-04-18] MEDS: ERTAPENEM 1 GM in SODIUM CHLORIDE 0.9% 50 ML IVPB SCH (16:23)
--- NOTE | 2020-04-18 16:23 | P.PN ---
Progress Note - Text Progress Note Date: 04/18/20 Chief Complaint: Fever History of presenting complaint: This is a pleasant 54-year-old patient of Dr. poe. Chronic stable medical conditions include diabetes mellitus type 2, hypothyroid,. Patient's 3 weeks ago started of with lower back pain shivering some nausea symptoms lasted for about 10 days. She was given symptomatic treatment by family doctor. [place] better for a week. Went back to work for a day. Symptoms started again. Same fever and chills. Denies any cough but noted that she was getting short of breath with exertion. She has some diarrhea yesterday. Appetite has been down. Patient also had cold sores a week ago. Given antiviral by family doctor. Also felt dizzy lightheaded. Decided to come in. Admitted with-positive blood cultures with Proteus secondary to pyelonephritis with right ureter stone right UP junction. Discitis ruled out. IV Zosyn On April 16 underwent right ureter stent placement. Today-patient's somewhat upset with the nursing staff indicates her daughter responded to her bed calls making a bed etc. Otherwise feeling well. Tolerating a diet. Making good urine.. Review of systems: Was done for constitutional, cardiovascular, GI, pulmonary. relevant finding as above Active Medications Acetaminophen (Tylenol Tab) 650 mg PO Q4HR PRN PRN Reason: Fever and/ or Pain Last Admin: 04/18/20 08:12 Dose: 650 mg Documented by: Al Hydroxide/Mg Hydroxide (Maalox) 15 ml PO Q6HR PRN PRN Reason: Indigestion Calcium Carbonate/Glycine (Tums) 1,000 mg PO Q4HR PRN PRN Reason: Dyspepsia Enoxaparin Sodium (Lovenox) 40 mg SQ DAILY [facility] Famotidine (Pepcid) 20 mg PO DAILY [facility] Last Admin: 04/18/20 08:01 Dose: 20 mg Documented by: Glipizide (Glucotrol) 5 mg PO BID [facility] Last Admin: 04/18/20 08:02 Dose: 5 mg Documented by: Sodium Chloride (Saline 0.9%) 1,000 mls @ 130 mls/hr IV .Q7H42M [facility] Last Admin: 04/18/20 05:23 Dose: 130 mls/hr Documented by: Ceftriaxone Sodium 2 gm/ (Sodium Chloride) 50 mls @ 100 mls/hr IVPB Q24HR [facility] Last Admin: 04/18/20 10:30 Dose: 100 mls/hr Documented by: Ertapenem 1 gm/ Sodium (Chloride) 50 mls @ 100 mls/hr IVPB DAILY@1600 [facility]; Protocol Insulin Aspart (Novolog) 0 unit SQ ACHS [facility]; Protocol Last Admin: 04/18/20 12:03 Dose: 2 unit Documented by: Lactulose (Cephulac) 20 gm PO DAILY PRN PRN Reason: Constipation Levothyroxine Sodium (Synthroid) 125 mcg PO 0630 [facility] Last Admin: 04/18/20 05:23 Dose: 125 mcg Documented by: Magnesium Hydroxide (Milk Of Magnesia) 2,400 mg PO DAILY PRN PRN Reason: Constipation Melatonin (Melatonin) 3 mg PO HS PRN PRN Reason: Insomnia Last Admin: 04/14/20 23:12 Dose: 3 mg Documented by: Morphine Sulfate (Morphine Sulfate (Inj)) 2 mg IVP Q6H PRN PRN Reason: Pain/Discomfort Last Admin: 04/17/20 21:39 Dose: 2 mg Documented by: Multivitamins (Theragran) 1 each PO DAILY [facility] Last Admin: 04/18/20 08:02 Dose: 1 each Documented by: Naloxone HCl (Narcan) 0.2 mg IV Q2M PRN PRN Reason: Opioid Reversal Jardiance ( Empagliflozin) 10 Mg Tab 25 mg PO DAILY [facility] Last Admin: 04/18/20 08:01 Dose: 25 mg Documented by: Vitamin E (Vitamin E) 400 unit PO DAILY [facility] Last Admin: 04/18/20 10:31 Dose: 400 unit Documented by: Physical examination: VITAL SIGNS: 97.7, 61, 18, and 35/74, 99% room air GENERAL: Sitting up, comfortable EYES: Pupils equal. Conjunctiva normal. HEENT: External appearance of nose and ears normal, oral cavity grossly normal. NECK: JVD not raised; masses not palpable. HEART: First and second heart sounds are normal; no edema. LUNGS: Respiratory rate normal; clear to auscultation. ABDOMEN: Soft, nontender, liver spleen not palpable, no masses palpable. PSYCH: Alert and oriented x3; mood and affect normal. INVESTIGATIONS, reviewed in the clinical context: White count 12.1 hemoglobin 10.5 potassium 4.3 bun 35 creatinine 1.58 Previous testing : Lumbar spine MRI negative for discitis White count 6.6 hemoglobin 11.4 platelets 104 potassium 3.2 bun 39 creatinine 2.43 Blood glucose 168 ferritin 340 C-reactive protein 644 pro calcitonin 37.9 EKG tracing personally reviewed by me-normal sinus rhythm, poor R-wave progression Chest x-ray film personally reviewed by [id number] obvious infiltrate Computed tomography scan of the abdomen showing right-sided hydronephrosis, stone the right UP junction. April 13 Blood culture-Proteus mirabilis: April 15 blood culture negative to low Urine culture-Proteus mirabilis/ESBL Assessment: -Acute severe right-sided pyelonephritis with sepsis from Proteus mirabilis. Possibly ESBL. -Right secondary hydronephrosis from right UP junction stone.-Followed by cystoscopy and right-sided unilateral stent placement. -Diabetes mellitus type 2 on oral hypoglycemic-uncontrolled with hypoglycemia -Hypothyroid -Obesity BMI 30.Hyponatremia -Acute kidney injury likely ATN and from sepsis.-Slow to respond -Metabolic acidosis from kidney failure Plan: -Patient white count is still updated. The clinical impression doing much better. Continue with IV Zosyn. Discussed at length with the patient. She wanted to call. Did tell her the importance of staying bacteremic a final determination of antibiotics. Also discussed with Dr. Lemus. We'll await culture results and decide from there. Still possible patient may need IV antibiotics to go home. Total time spent today about 40 minutes with over 20 minutes of discussion.
[2020-04-18 20:27] LABS: Glucose,Whole Blood 137 mg/dL (75-99)
[2020-04-18] MEDS: MORPHINE SULFATE 2 MG/ML SYRINGE IVP PRN (20:54)
[2020-04-19 00:57] VITALS: PULSE 74; RESP 18
[2020-04-19] MEDS: SODIUM CHLORIDE 0.9% 1,000 ML IV SCH (03:30)
[2020-04-19] MEDS: LEVOTHYROXINE 125 MCG TAB PO SCH (05:08)
--- NOTE | 2020-04-19 06:22 | PN ---
PROGRESS NOTE DATE OF SERVICE: 04/18/2020 REASON FOR FOLLOWUP: Complicated urinary intact infection with bacteremia. INTERVAL HISTORY: The patient is currently afebrile. The patient is breathing comfortably. The patient denies having any chest pain or shortness of breath or cough. No nausea, no vomiting. No abdominal pain. No diarrhea. Has been concerned about her IV being changed. REVIEW OF SYSTEMS: Positive points have been mentioned in HPI. Rest of systems negative. PAST MEDICAL AND SURGICAL HISTORY: No change. MEDICATIONS: Reviewed. PHYSICAL EXAMINATION: Blood pressure 152/83 with a pulse of 73, temperature 98.3. She is 99% on room air. General description is a middle-aged female up in the chair in no distress. RESPIRATORY SYSTEM: Unlabored breathing, clear to auscultation anteriorly. HEART: S1, S2. Regular rate and rhythm. ABDOMEN: Soft, no tenderness. No guarding or rigidity. EXTREMITIES: No edema of the feet. LABS: Repeat UA obtained from yesterday has been positive. White count still up at 12.1. Creatinine 1.58. DIAGNOSTIC IMPRESSION AND PLAN: Patient with Proteus mirabilis bacteremia source likely complicated urinary tract infection with right-sided ureteral stone, status post cystoscopy and stent placement. Urine is now showing ESBL. Antibiotic has been adjusted to Invanz 1 gram daily. Will see what the repeat urine culture will show to determine her discharge antibiotics. All her questions and concerns were answered. Significant amount of time was spent with the patient. SCOTT / JANAN: [id number] /
[2020-04-19 06:57] LABS: Glucose,Whole Blood 81 mg/dL (75-99)
[2020-04-19] MEDS: INSULIN ASPART (NovoLOG) 100 UNIT/ML VIAL SQ SCH ×2 (07:24→13:05)
[2020-04-19 08:07] VITALS: BP 130/75; TEMP 98.2
[2020-04-19] MEDS: JARDIANCE 10 MG PO SCH (08:48)
[2020-04-19] MEDS: MULTIVITAMINS, THERA 1 EACH TAB PO SCH (08:51)
[2020-04-19] MEDS: VITAMIN E (DL,TOCOPHERYL ACET) 400 UNIT CAP PO SCH (08:52)
[2020-04-19] MEDS: glipiZIDE 5 MG TAB PO SCH (08:52)
[2020-04-19] MEDS: FAMOTIDINE 20 MG TAB PO SCH (08:52)
[2020-04-19] MEDS ORDERED: ENOXAPARIN 40 MG/0.4 ML SYRINGE SQ SCH (09:00)
[2020-04-19 09:58] LABS: Calcium 7.7 mg/dL (8.4-10.2); Potassium 4.6 mmol/L (3.5-5.1)
[2020-04-19 11:44] LABS: Glucose,Whole Blood 151 mg/dL (75-99)
[2020-04-19 13:25] LABS: HCT 32.8 % (34.0-46.0); HGB 10.7 gm/dL (11.4-16.0); Hypochromasia Slight; MCHC 32.5 g/dL (31.0-37.0); MCV 98.4 fL (80.0-100.0); Mean Platelet Volume 8.1; Platelet Count 217 k/uL (150-450); RBC 3.33 m/uL (3.80-5.40); RDW 15.2 % (11.5-15.5); WBC 9.5 k/uL (3.8-10.6)
[2020-04-19] MEDS: ERTAPENEM 1 GM in SODIUM CHLORIDE 0.9% 50 ML IVPB SCH (15:10)
--- NOTE | 2020-04-19 15:19 | PN ---
PROGRESS NOTE DATE OF SERVICE: 04/19/2020 REASON FOR FOLLOWUP: Complicated urinary tract infection with bacteremia. INTERVAL HISTORY: The patient is currently afebrile. The patient is breathing comfortably. The patient denies having any chest pain or shortness of breath or cough. No nausea, no vomiting. No abdominal pain and no diarrhea. PHYSICAL EXAMINATION: Blood pressure 130/75 with a pulse of 67, temperature 98.2. She is 97% on room air. General description is a middle-aged female up in the room in no distress. RESPIRATORY SYSTEM: Unlabored breathing. Clear to auscultation anteriorly. HEART: S1, S2. Regular rate and rhythm. ABDOMEN: Soft. No tenderness. LABS: No new labs have been obtained today. Blood and urine culture repeats have been negative so far. DIAGNOSTIC IMPRESSION AND PLAN: Patient with Proteus mirabilis bacteremia. Source is likely infected right kidney with hydronephrosis, status post stent placement. However, urine culture came back positive with an ESBL. We are waiting for repeat urine to finalize. The patient is really insisting on going home. Midline has been placed and she does not want to wait for the repeat cultures. On Invanz; to continue for another 2 weeks to finish her course of therapy and close outpatient followup. MMODL / IJN: [id number] /
--- NOTE | 2020-04-19 18:22 | PN ---
PROGRESS NOTE DATE OF SERVICE: 04/19/2020 REASON FOR FOLLOWUP: Complicated urinary tract infection with bacteremia. INTERVAL HISTORY: The patient is currently afebrile. The patient is breathing comfortably. The patient denies having any chest pain or shortness of breath or cough. No nausea, no vomiting, no abdominal pain, no diarrhea. Overall feeling better compared to yesterday. PHYSICAL EXAMINATION: Her blood pressure is 130/75 with a pulse of 67, temperature 98.2. She is 97% on room air. General description is a middle-aged female up in the bed in no distress. RESPIRATORY SYSTEM: Unlabored breathing. Clear to auscultation anteriorly. HEART: S1, S2. Regular rate and rhythm. ABDOMEN: Soft. No tenderness. LABS: White count normalized at 9.5, BUN of 21, creatinine 1.46. DIAGNOSTIC IMPRESSION AND PLAN: Patient with complicated urinary tract infection with Proteus mirabilis bacteremia. Urine showed ESBL. Patient is clinically responding to the Invanz, with white count normalized. Recommend continuing the patient on Invanz 1 gram daily for 2 weeks, for which a midline will be placed. Plan was discussed in detail with the patient as well as the admitting physician working on discharge. MMODL / IJN: [id number] /
--- NOTE | 2020-04-20 23:34 | P.DS ---
Providers Date of admission: 04/14/20 01:38 Expected date of discharge: 04/19/20 Attending physician: Thien Stock Consults: 04/14/20 06:47 Consult Physician Routine Consulting Provider: Dagoberto Aviles Consult Reason/Comments: covid Do you want consulting provider notified?: Yes 04/14/20 22:38 Consult Physician Routine Consulting Provider: Dagoberto Aviles Consult Reason/Comments: fever Do you want consulting provider notified?: Yes 04/15/20 12:25 Consult Physician Routine Consulting Provider: Georgi Romero Consult Reason/Comments: R uvj stone with hydronephrosis Do you want consulting provider notified?: Yes Primary care physician: Denny Briseno [facility] Course: Chief Complaint: Fever History of presenting complaint: This is a pleasant 54-year-old patient of Dr. briseno. Chronic stable medical conditions include diabetes mellitus type 2, hypothyroid,. Patient's 3 weeks ago started of with lower back pain shivering some nausea symptoms lasted for about 10 days. She was given symptomatic treatment by family doctor. [place] better for a week. Went back to work for a day. Symptoms started again. Same fever and chills. Denies any cough but noted that she was getting short of breath with exertion. She has some diarrhea yesterday. Appetite has been down. Patient also had cold sores a week ago. Given antiviral by family doctor. Also felt dizzy lightheaded. Decided to come in. Admitted with-positive blood cultures with Proteus secondary to pyelonephritis with right ureter stone right UP junction. Discitis ruled out. IV Zosyn On April 16 underwent right ureter stent placement. Today-patient doing well. One of the cultures came back showing Proteus with ESBL. Discussed with Dr. Lemus. Decision made to send her home with IV antibiotics midline ordered. Patient to get 2 weeks of Invanz Discussion and discharge planning more than 35 minutes Consultation: Dr. Lemus from ID Dr. acosta from neurology Physical examination: VITAL SIGNS: 98.2, 67, 16, 130/75, 97% room air GENERAL: Sitting up, comfortable EYES: Pupils equal. Conjunctiva normal. HEENT: External appearance of nose and ears normal, oral cavity grossly normal. NECK: JVD not raised; masses not palpable. HEART: First and second heart sounds are normal; no edema. LUNGS: Respiratory rate normal; clear to auscultation. ABDOMEN: Soft, nontender, liver spleen not palpable, no masses palpable. PSYCH: Alert and oriented x3; mood and affect normal. INVESTIGATIONS, reviewed in the clinical context: White count 9.5 hemoglobin 10.7 potassium 4.6 creatinine 1.46 pro calcitonin 1.6 Previous testing : Lumbar spine MRI negative for discitis White count 6.6 hemoglobin 11.4 platelets 104 potassium 3.2 bun 39 creatinine 2.43 Blood glucose 168 ferritin 340 C-reactive protein 644 pro calcitonin 37.9 EKG tracing personally reviewed by me-normal sinus rhythm, poor R-wave progression Chest x-ray film personally reviewed by [id number] obvious infiltrate Computed tomography scan of the abdomen showing right-sided hydronephrosis, stone the right UP junction. April 13 Blood culture-Proteus mirabilis: April 15 blood culture negative to low Urine culture-Proteus mirabilis/ESBL Assessment: -Acute severe right-sided pyelonephritis with sepsis from Proteus mirabilis. Possibly ESBL. -Right secondary hydronephrosis from right UP junction stone.-Followed by cystoscopy and right-sided unilateral stent placement. -Diabetes mellitus type 2 on oral hypoglycemic-uncontrolled with hypoglycemia -Hypothyroid -Obesity BMI 30.Hyponatremia -Acute kidney injury likely ATN and from sepsis.-Slow improvement -Metabolic acidosis from kidney failure Disposition: Home CBC BMP weekly Patient Condition at Discharge: Stable Plan - Discharge Summary Discharge Rx Participant: No New Discharge Prescriptions: New Ertapenem [INVanz] 1 gm IVPB Q24H #14 bag Continue glipiZIDE [Glipizide] 5 mg PO BID Levothyroxine Sodium [Synthroid] 125 mcg PO DAILY Vitamin E 400 unit PO DAILY Multivitamins, Thera [Multivitamin (formulary)] 1 tab PO DAILY Cholecalciferol [Vitamin D3 (25 Mcg = 1000 Iu)] 1,000 unit PO DAILY Empagliflozin [Jardiance] 25 mg PO DAILY Atorvastatin [Lipitor] 10 mg PO HS Discontinued Hydrochlorothiazide [Hydrodiuril] 25 mg PO DAILY No Action Aspirin 1 tab PO DAILY Discharge Medication List Levothyroxine Sodium [Synthroid] 125 mcg PO DAILY 11/04/15 [History] glipiZIDE [Glipizide] 5 mg PO BID 01/21/16 [History] Cholecalciferol [Vitamin D3 (25 Mcg = 1000 Iu)] 1,000 unit PO DAILY 04/14/20 [History] Empagliflozin [Jardiance] 25 mg PO DAILY 04/14/20 [History] Multivitamins, Thera [Multivitamin (formulary)] 1 tab PO DAILY 04/14/20 [History] Vitamin E 400 unit PO DAILY 04/14/20 [History] Atorvastatin [Lipitor] 10 mg PO HS 04/17/20 [History] Ertapenem [INVanz] 1 gm IVPB Q24H #14 bag 04/19/20 [Rx] Aspirin 1 tab PO DAILY 04/20/20 [History] Follow up Appointment(s)/Referral(s): Royal Acosta MD [STAFF PHYSICIAN] - 04/28/20 9:20 am Denny Briseno MD [Primary Care Provider] - 04/20/20 10:15 am Patient Instructions/Handouts: Gastroenteritis (DC) Activity/Diet/Wound Care/Special Instructions: Please come to [facility] floor [facility] starting on 04/20/2020 at 12:00pm for your first IV antibiotic infusion. cbc/bmp - weekly
== END 2020-04-19 15:57 | disposition home or self-care (01) | DRG 853 ==
LOC: EC 22:48 → 4SSUR 04-14 01:38
PROVIDERS: ADMIT Hospitalist; ATTEND Hospitalist
PROC: 0T768DZ Dilation of Right Ureter with Intraluminal Device, Via Natural or Artificial Opening Endoscopic (ICD-10-PCS; principal; 2020-04-16 09:30)
DX: A41.59 Other Gram-negative sepsis (principal); N17.0 Acute kidney failure with tubular necrosis; E87.1 Hypo-osmolality and hyponatremia; N13.6 Pyonephrosis; E87.2 Acidosis; E03.9 Hypothyroidism, unspecified; E78.5 Hyperlipidemia, unspecified; E11.649 Type 2 diabetes mellitus with hypoglycemia without coma; K21.9 Gastro-esophageal reflux disease without esophagitis; E66.9 Obesity, unspecified; B96.4 Proteus (mirabilis) (morganii) as the cause of diseases classified elsewhere; K52.9 Noninfective gastroenteritis and colitis, unspecified; Z20.828 Contact with and (suspected) exposure to other viral communicable diseases; Z79.82 Long term (current) use of aspirin; Z79.890 Hormone replacement therapy; Z79.899 Other long term (current) drug therapy; Z79.84 Long term (current) use of oral hypoglycemic drugs; Z98.890 Other specified postprocedural states; Z68.30 Body mass index [BMI] 30.0-30.9, adult; Z82.49 Family history of ischemic heart disease and other diseases of the circulatory system; Z83.3 Family history of diabetes mellitus; Z87.442 Personal history of urinary calculi; Z87.440 Personal history of urinary (tract) infections
CPT/HCPCS: 36410; 36415; 71045; 72148; 74018; 74176; 76000; 76937; 80048; 80053; 81001; 82728; 83605; 83615; 83735; 84145; 85025; 85027; 85379; 85610; 85730; 86140; 86644; 86645; 87040; 87077; 87086; 87186; 93005; 96361; 96372; 96374; 96375; 96376; 99285

== ENCOUNTER 2020-05-06 07:17 | Day surgery (SDC) | payer OTHER ==
[2020-05-05 12:50] VITALS: BMI 31.4
--- NOTE | 2020-05-06 00:18 | P.HPIHPCON ---
History of Present Illness H&P Date: 05/06/20 Chief Complaint: right sided ureteral stone 55 yo female with hx of right sided proximal stone and an additional 8mm stone in the mid pole. She has hx of sepsis secondary to her obstructive stone. She is S/P ureteral stent placement. She presents today for right sided ureteroscopy with holmium laser. risk and benefit of the surgery were discussed with her. I discussed the risk of bleeding, infection and injury to the ureter. she understood all risks and agreed to proceed Consent for Procedure: I have explained the operation/procedure to the patient, including the risks, benefits, side effects, alternative therapies (including not receiving the proposed treatment or service), the likelihood of the patient achieving his/her goals, and potential recuperation problems for the procedure/sedation/analgesia, as well as any blood products, if indicated. I also explained to the patient the risks, benefits and side effects of the alternatives, as well as the risks related to not receiving the proposed procedure, care, treatment, or services. - Constitutional Constitutional: Denies chills, Denies fever - Cardiovascular Cardiovascular: Denies chest pain, Denies shortness of breath - Respiratory Respiratory: Denies cough, Denies 7 - Gastrointestinal Gastrointestinal: Denies abdominal pain, Denies diarrhea, Denies nausea, Denies vomiting - Genitourinary (Female) Genitourinary: Denies dysuria, Denies hematuria Past Medical History Past Medical History: Diabetes Mellitus, Hyperlipidemia, Renal Disease, Thyroid Disorder Additional Past Medical History / Comment(s): NIDDM type II, hypothyroid, past migraines, RECENT BLOCKAGE OF KIDNEY-STONE WITH A CYST , History of Any Multi-Drug Resistant Organisms: None Reported Past Surgical History: Heart Catheterization Additional Past Surgical History / Comment(s): R inguinal hernia repair, colonoscopy-normal, 2015 cardiac cath-normal. STENT IN URETER , MIDLINE CATHETER, Past Anesthesia/Blood Transfusion Reactions: Postoperative Nausea & Vomiting (PONV) Smoking Status: Never smoker - Past Family History Father Family Medical History: Coronary Artery Disease (CAD), Myocardial Infarction (PA) Additional Family Medical History / Comment(s): Pt does not know at what age father had PA. She states he of heart disease at the age of 62 yrs. Mother Family Medical History: Diabetes Mellitus Additional Family Medical History / Comment(s): Mother of sepsis. Brother(s) Family Medical History: Myocardial Infarction (PA) Additional Family Medical History / Comment(s): Brother had a PA at the age of 52 yrs. Sister(s) Family Medical History: Cancer, Myocardial Infarction (PA) Additional Family Medical History / Comment(s): RECTAL CANCER Medications and Allergies Home Medications Medication Instructions Recorded Confirmed Type Levothyroxine Sodium [Synthroid] 125 mcg PO DAILY 11/04/15 05/05/20 History glipiZIDE [Glipizide] 10 mg PO HS 11/04/15 05/05/20 History Cholecalciferol [Vitamin D3 (25 1,000 unit PO DAILY 04/14/20 05/05/20 History Mcg = 1000 Iu)] Empagliflozin [Jardiance] 25 mg PO DAILY 04/14/20 05/05/20 History Multivitamins, Thera [Multivitamin 1 tab PO DAILY 04/14/20 05/05/20 History (formulary)] Vitamin E 400 unit PO DAILY 04/14/20 05/05/20 History Atorvastatin [Lipitor] 10 mg PO HS 04/17/20 05/05/20 History Aspirin 81 mg PO DAILY 04/20/20 05/05/20 History Allergies Allergy/AdvReac Type Severity Reaction Status Date / Time No Known Allergies Allergy Verified 05/05/20 12:03 Surgical - Exam - General no distress, no pain - Eyes normal ocular movement - Respiratory normal expansion, normal respiratory effort - Abdomen Abdomen: soft, non tender Assessment and Plan Plan: 55 yo female with hx of right sided proximal stone and an 8 mm midpole stone -Or for right sided urerteroscopy with holmium laser
[~2020-05-06 07:17] MED LIST: GENTAMICIN 120 MG in SODIUM CHLORIDE 0.9% 100 ML IVPB ONE; LACTATED RINGERS 1,000 ML IV SCH; fentaNYL (PF) 50 MCG/ML 2 ML AMP IV PRN
[2020-05-06 07:53] LABS: Glucose,Whole Blood 181 mg/dL (75-99)
[2020-05-06] MEDS ORDERED: DEXAMETHASONE SOD PHOSPHATE 10 MG/ML 1 ML VIAL IV ONE (07:54)
[2020-05-06] MEDS ORDERED: ONDANSETRON 4 MG/2 ML VIAL IVP ONE (07:54)
[2020-05-06] MEDS ORDERED: SCOPOLAMINE 1.5MG/72HR PATCH TRANSDERM ONE (07:54)
[2020-05-06] MEDS ORDERED: ONDANSETRON 4 MG/2 ML VIAL ONE (07:55)
[2020-05-06] MEDS ORDERED: PROPOFOL 10 MG/ML 20 ML VIAL IV ONE (08:42)
[2020-05-06] MEDS ORDERED: fentaNYL (PF) 50 MCG/ML 2 ML AMP ONE (08:42)
[2020-05-06] MEDS ORDERED: LIDOCAINE 1% INJ 10MG/ML (20 ML MDV) ONE (08:42)
[2020-05-06] MEDS ORDERED: MIDAZOLAM 2 MG/2 ML VIAL ONE (08:42)
[2020-05-06] MEDS ORDERED: IOPAMIDOL-370 50ML BTL MISCELLANE ONE (09:10)
[2020-05-06 10:22] VITALS: TEMP 97
--- NOTE | 2020-05-06 10:24 | FL ---
EXAMINATION TYPE: FL urography retrograde DATE OF EXAM: 05/06/2020 CLINICAL HISTORY: Right sided kidney stone. TECHNIQUE: Fluoroscopy. COMPARISON: CT abdomen and pelvis April 15, 2020. FINDINGS: Fluoroscopic guidance was provided during cystogram procedure for right-sided kidney stone performed by Dr. Smallwood. A total of 43 seconds of fluoroscopic time was utilized during the procedu re and 6 spot images are acquired. Images acquired show right ureter access with subsequent placemen t of pigtail ureter stent. IMPRESSION: As Above.
[2020-05-06 10:30] LABS: Glucose,Whole Blood 189 mg/dL (75-99)
--- NOTE | 2020-05-06 10:38 | P.OP ---
Date of Procedure: 05/06/20 Preoperative Diagnosis: right sided ureteral/renal stone Postoperative Diagnosis: same Procedure(s) Performed: cystoscopy, right reterograde pyelogram ureteroscopy, homium laser lithotripsy, stone basketting and stent exchange Implants: 6Fr X24 cm stent Anesthesia: TY Surgeon: Royal Acosta Estimated Blood Loss (ml): 5 Pathology: other (ureteral/renal calculi) Condition: stable Disposition: PACU Indications for Procedure: 55 yo female with hx of right sided proximal stone and an additional 8mm stone in the mid pole. She has hx of sepsis secondary to her obstructive stone. She is S/P ureteral stent placement. She presents today for right sided ureteroscopy with holmium laser. risk and benefit of the surgery were discussed with her. I discussed the risk of bleeding, infection and injury to the ureter. she understood all risks and agreed to proceed Operative Findings: 2 stone visualized one at the UPJ and an additional stone in the midpole. both stone had struvite consistency Description of Procedure: The patient was brought to the operating room general anesthesia was induced, she was prepped and draped in sterile fashion placed a dorsal lithotomy position. Cystoscopy fitted with a 21 sheath was inserted per urethra the stent was grabbed and removed. Next a sensor wire was advanced through the stent up into the renal pelvis, next an open-ended catheter was placed over the wire. The wire was removed with the catheter in place, next contrast was injected through the catheter no filling defect were discovered along the course of the ureter. A wire was advanced through the catheter and the catheter was removed the wire in place. Next a semirigid ureteroscope was advanced through the ureteral orifice and advanced up into the proximal ureter no stones were seen along the course of the ureter. The semirigid ureteroscope was withdrawn with the wire in place. Next a 12 x 14-Swedish access sheath was passed over the wire and advanced the proximal ureter. Next a flexible ureteroscope was advanced through the sheath renoscopy was performed which showed 2 stone 1 along the UPJ and additional stone at the midpole. Both stones were soft and had the consistency of struvite stones. Using the holmium laser the stones were broken up into smaller basketabble pieces. Using the Spot Influence stone basket the fragments were removed, given the consistency of struvite stones basketing was performed until minimum debris that was to small to basektt. Repeat renoscopy showed no additional stones. Pullback ureteroscopy was performed which showed no injury to the ureter and ureteral stone. Next a 6-Swedish by 24 cm stent was passed over the wire. The proximal curl was visualized on fluoroscopy and the distal curl was visualized using the cystoscope. The bladder was emptied and of the case. The patient was awaken from anesthesia and taken to recovery in stable condition
[2020-05-06 11:46] VITALS: RESP 18
[2020-05-06 11:47] VITALS: PULSE 83
[2020-05-06 12:23] VITALS: BP 122/78
== END 2020-05-06 12:48 | disposition home or self-care (01) ==
LOC: OR 07:17
PROVIDERS: ATTEND Urology
DX: N20.2 Calculus of kidney with calculus of ureter (principal); E11.9 Type 2 diabetes mellitus without complications; E78.5 Hyperlipidemia, unspecified; E07.9 Disorder of thyroid, unspecified; E03.9 Hypothyroidism, unspecified; G43.909 Migraine, unspecified, not intractable, without status migrainosus; Z98.890 Other specified postprocedural states; Z87.19 Personal history of other diseases of the digestive system; Z82.49 Family history of ischemic heart disease and other diseases of the circulatory system; Z82.3 Family history of stroke; Z83.3 Family history of diabetes mellitus; Z80.0 Family history of malignant neoplasm of digestive organs; Z79.890 Hormone replacement therapy; Z79.82 Long term (current) use of aspirin; Z79.84 Long term (current) use of oral hypoglycemic drugs; Z79.899 Other long term (current) drug therapy
CPT/HCPCS: 52356; 82365; 74420; C2625; C1894; C1769; J2250; J1100; J0690; J2405; J2001; J3010; J1580; J2704; Q9967

== ENCOUNTER → 2020-05-20 | Outpatient (CLI) | payer OTHER ==
--- NOTE | 2020-05-24 11:40 | MM ---
Reason for exam: screening (asymptomatic). Last mammogram was performed 1 year and 3 months ago. History: Patient is postmenopausal. Family history of breast cancer in maternal aunt at age 55, breast cancer in maternal cousin at age 45, and breast cancer in maternal cousin. Benign MG stereo VAD BX RT of the right breast, September 22, 2014. Benign US left guided VAD of the left breast, December 29, 2009. Took hormonal contraceptives for 38 years beginning at age 16. Physical Findings: A clinical breast exam by your physician is recommended on an annual basis and results should be correlated with mammographic findings. MG 3D Screening Mammo W/Cad Bilateral CC and MLO view(s) were taken. Prior study comparison: February 06, 2019, bilateral MG screening mammo w CAD. January 24, 2018, bilateral MG screening mammo w CAD. There are scattered fibroglandular densities. Benign appearing bilateral calcifications. Previous mammotome biopsy in the right and left breast. ASSESSMENT: Benign, BI-RAD 2 RECOMMENDATION: Routine screening mammogram of both breasts in 1 year.
== END | disposition home or self-care (01) ==
LOC: RADMAMWWP 11:54
PROVIDERS: ATTEND Obstetrics & Gynecology
DX: Z12.31 Encounter for screening mammogram for malignant neoplasm of breast (principal); Z80.3 Family history of malignant neoplasm of breast
CPT/HCPCS: 77063; 77067

== ENCOUNTER → 2020-05-25 | Outpatient (CLI) | payer OTHER ==
--- NOTE | 2020-05-25 08:15 | US ---
EXAMINATION TYPE: US kidneys/renal and bladder DATE OF EXAM: 05/25/2020 COMPARISON: ct 04/15/2020, ultrasound 08/20/2019 CLINICAL HISTORY: N17.0 ACUTE KIDNEY INJURY. EXAM MEASUREMENTS: Right Kidney: 9.4 x 4.8 x 4.6 cm Left Kidney: 10.1 x 4.8 x 4.7 cm Right Kidney: No hydronephrosis or masses seen Left Kidney: No hydronephrosis or masses seen. Unable to visualize stones seen on previous CT Bladder: wnl Bilateral Jets seen: Yes There is no evidence for hydronephrosis at this point in time. No nephrolithiasis is seen. No wilfred s are identified. The urinary bladder is anechoic. Bilateral ureteral jets are seen. IMPRESSION: No hydronephrosis or nephrolithiasis. Renal stones reported by previous CT scan are not seen by ultra sound. No hydronephrosis.
== END | disposition home or self-care (01) ==
LOC: RADUSWWP 06:57
PROVIDERS: ATTEND Internal Medicine
DX: N17.0 Acute kidney failure with tubular necrosis (principal)
CPT/HCPCS: 76770

== ENCOUNTER → 2020-06-01 | Outpatient (CLI) | payer OTHER ==
[2020-06-01 15:24] LABS: Basophils % (A) 0 %; Eosinophils # (A) 0.1 k/uL (0-0.7); Eosinophils % (A) 2 %; HCT 32.4 % (34.0-46.0); HGB 10.3 gm/dL (11.4-16.0); Lymphocytes # (A) 1.8 k/uL (1.0-4.8); Lymphocytes % (A) 29 %; MCH 30.1 pg (25.0-35.0); MCHC 31.6 g/dL (31.0-37.0); MCV 95.1 fL (80.0-100.0); Mean Platelet Volume 6.8; Monocytes # (A) 0.3 k/uL (0-1.0); Monocytes % (A) 5 %; Neutrophils # (A) 3.7 k/uL (1.3-7.7); Neutrophils % (A) 60 %; Platelet Count 189 k/uL (150-450); RBC 3.41 m/uL (3.80-5.40); RDW 14.6 % (11.5-15.5); WBC 6.3 k/uL (3.8-10.6)
[2020-06-01 15:33] LABS: Calcium 9.6 mg/dL (8.4-10.2); Potassium 4.2 mmol/L (3.5-5.1)
[2020-06-01 15:54] LABS: Appearance,Urine Clear (Clear); Bacteria,Urine Occasional /hpf; Bilirubin,Urine Negative (Negative); Blood,Urine Small (Negative); Budding Yeast,Urine Occasional /hpf; Color,Urine Yellow; Glucose,Urine (UA) 1+ (Negative); Hyaline Casts,Urine 1 /lpf (0-2); Ketones,Urine Negative (Negative); Leukocyte Esterase,Urine Large (Negative); Mucus,Urine Rare /hpf; Nitrite,Urine Negative (Negative); Protein,Urine Trace (Negative); RBC,Urine 6 /hpf (0-5); Specific Gravity,Urine 1.014 (1.001-1.035); Squamous Epithelial Cell,Urine <1 /hpf (0-4); Urobilinogen,Urine <2.0 mg/dL (<2.0); WBC,Urine 36 /hpf (0-5)
== END | disposition home or self-care (01) ==
LOC: LABPAT 13:34
PROVIDERS: ATTEND Urology
DX: Z01.818 Encounter for other preprocedural examination (principal); E11.9 Type 2 diabetes mellitus without complications; N20.1 Calculus of ureter
CPT/HCPCS: 36415; 80048; 81001; 85025; 87077; 87086; 87186

== ENCOUNTER → 2020-06-10 | Day surgery (SDC) | payer OTHER ==
[2020-06-03 16:02] VITALS: BMI 33.5
--- NOTE | 2020-06-03 17:13 | P.HPIHPCON ---
History of Present Illness H&P Date: 06/10/20 Chief Complaint: left sided renal stone Ms Gordon is 55 yo female with hx of left sided renal stone, she has multiple stones on that side, the largest stone is 1.1 cm. options of observation, ESWL, and ureteroscopy were discussed with her. she agreed to proceed with left sided ureteroscopy. risk and benefit of the surgery were discussed with her. I discussed the risk of bleeding, infection and injury to the ureter. she understood all risks and agreed to proceed Consent for Procedure: I have explained the operation/procedure to the patient, including the risks, benefits, side effects, alternative therapies (including not receiving the pro posed treatment or service), the likelihood of the patient achieving his/her goals, and potential recuperation problems for the procedure/sedation/analgesia, as well as any blood products, if indicated. I also explained to the patient the risks, benefits and side effects of the alternatives, as well as the risks related to not receiving the proposed procedure, care, treatment, or services. - Constitutional Constitutional: Denies chills, Denies fever - Cardiovascular Cardiovascular: Denies chest pain, Denies shortness of breath - Respiratory Respiratory: Denies cough, Denies 7 - Gastrointestinal Gastrointestinal: Denies abdominal pain, Denies diarrhea, Denies nausea, Denies vomiting Past Medical History Past Medical History: Diabetes Mellitus, Hyperlipidemia, Hypertension, Thyroid Disorder Additional Past Medical History / Comment(s): NIDDM type II, hypothyroid, past migraines, hospitalized with pylenephritis & kidney stone April 2020 and received picc line and antibiotics, cystoscopy with lithotripsy May 06., states she seen Dr. Acosta today for bladder infection and started on Bactrim. History of Any Multi-Drug Resistant Organisms: ESBL Date of last positivie culture/infection: 04/15/20 MDRO Source:: urine -Proteus Mirabilis Past Surgical History: Heart Catheterization Additional Past Surgical History / Comment(s): R inguinal hernia repair, colonoscopy-normal, 2015 cardiac cath-normal. cystoscopy w/ ureteroscopy, lith otripsy and stent (05/06/20). Past Anesthesia/Blood Transfusion Reactions: Postoperative Nausea & Vomiting (PONV) Past Psychological History: No Psychological Hx Reported Additional Psychological History / Comment(s): . Smoking Status: Never smoker Past Alcohol Use History: None Reported Past Drug Use History: None Reported - Past Family History Father Family Medical History: Coronary Artery Disease (CAD), Myocardial Infarction (DE) Additional Family Medical History / Comment(s): Pt does not know at what age father had DE. She states he of heart disease at the age of 62 yrs. Mother Family Medical History: Diabetes Mellitus Additional Family Medical History / Comment(s): Mother of sepsis. Brother(s) Family Medical History: Myocardial Infarction (DE) Additional Family Medical History / Comment(s): Brother had a DE at the age of 52 yrs. Sister(s) Family Medical History: Cancer, Myocardial Infarction (DE) Additional Family Medical History / Comment(s): RECTAL CANCER Medications and Allergies Home Medications Medication Instructions Recorded Confirmed Type Levothyroxine Sodium [Synthroid] 125 mcg PO DAILY 11/04/15 06/03/20 History glipiZIDE [Glipizide] 5 mg PO BID 11/04/15 06/03/20 History Cholecalciferol [Vitamin D3 (25 2,000 unit PO DAILY 04/14/20 06/03/20 History Mcg = 1000 Iu)] Vitamin E 400 unit PO DAILY 04/14/20 06/03/20 History Atorvastatin [Lipitor] 10 mg PO HS 04/17/20 06/03/20 History Aspirin 81 mg PO DAILY 04/20/20 06/03/20 History Icosapent Ethyl [Vascepa] 2 gm PO BID-W/MEALS 06/03/20 06/03/20 History Multivit with Calcium,Iron,Min 1 each PO DAILY 06/03/20 06/03/20 History [Women's Multivitamin] Pioglitazone [Actos] 30 mg PO DAILY 06/03/20 06/03/20 History Sulfamethox-Tmp 800-160Mg [Bactrim 1 tab PO BID 06/03/20 06/03/20 History DS 800-160 mg] lisinopriL [Zestril] 5 mg PO DAILY 06/03/20 06/03/20 History Allergies Allergy/AdvReac Type Severity Reaction Status Date / Time No Known Allergies Allergy Verified 06/03/20 14:49 Surgical - Exam - General well developed, well nourished, no distress, no pain - Respiratory normal expansion, normal respiratory effort - Abdomen Abdomen: soft, non tender Assessment and Plan Assessment: 55 yo with hx o left sided renal stones, largest is 1.1 cm -OR for left ureteroscopy, with holmium laser, stone basketting and stent placement
[~2020-06-10] MED LIST changes: +DEXAMETHASONE SOD PHOSPHATE 10 MG/ML 1 ML VIAL IV ONE; +HYDROmorphone 0.5 MG/0.5 ML SYRINGE IVP PRN; +IOPAMIDOL-370 50ML BTL MISCELLANE ONE; +LACTATED RINGERS 1,000 ML IV ONE; +MIDAZOLAM 2 MG/2 ML VIAL ONE; +ONDANSETRON 4 MG/2 ML VIAL IVP ONE; +ONDANSETRON 4 MG/2 ML VIAL ONE; +PROPOFOL 10 MG/ML 20 ML VIAL IV ONE; +SCOPOLAMINE 1.5MG/72HR PATCH TRANSDERM ONE; -fentaNYL (PF) 50 MCG/ML 2 ML AMP IV PRN; +fentaNYL (PF) 50 MCG/ML 2 ML AMP ONE
--- NOTE | 2020-06-10 06:25 | XR ---
EXAMINATION TYPE: XR KUB DATE OF EXAM: 06/10/2020 COMPARISON: 04/14/2020 HISTORY: Preop lithotripsy TECHNIQUE: Single view FINDINGS: There is no sign of intestinal obstruction or pneumoperitoneum. Fecal pattern is normal. Th ere is some amorphous calcification over the upper pole left kidney. There is probably 2 mm calculus lower pole left kidney. There is no evidence of a mass. IMPRESSION: Left renal calculi. Nonacute abdomen.
[2020-06-10 06:39] LABS: Glucose,Whole Blood 173 mg/dL (75-99)
[2020-06-10 09:35] VITALS: TEMP 97.7
--- NOTE | 2020-06-10 09:36 | P.OP ---
Date of Procedure: 06/10/20 Preoperative Diagnosis: Left renal calculi Postoperative Diagnosis: Same Procedure(s) Performed: Cystoscopy, left ureteroscopy, retrograde pyelogram, holmium laser lithotripsy, stone basketing and stent placement Implants: 6-Romanian by 24 cm stent Anesthesia: TY Surgeon: Royal Acosta Estimated Blood Loss (ml): 5 Pathology: other (Left renal calculi) Condition: stable Disposition: PACU Indications for Procedure: Ms Sharp is 55 yo female with hx of left sided renal stone, she has multiple stones on that side, the largest stone is 1.1 cm. options of observation, ESWL, and ureteroscopy were discussed with her. she agreed to proceed with left sided ureteroscopy. risk and benefit of the surgery were discussed with her. I discussed the risk of bleeding, infection and injury to the ureter. she understood all risks and agreed to proceed Operative Findings: Multiple stone in the left upper pole, stone characteristic consistent with stress struvite stone Description of Procedure: Patient was brought to the operating room, general anesthesia was induced. She was prepped and draped in sterile fashion a placement dorsal lithotomy position. Cystoscopy fitted with 21 sheath was inserted per urethra, cystoscopy was performed showed no abnormality in the bladder. Attention was carried to the left ureteral orifice was intubated with a 6-Romanian open-ended catheter, retrograde pyelogram was performed showed no filling defect in the ureter, there was evidence of filling defect in the upper pole at the location of the stone. At this time a sensor wire was advanced through the catheter the catheter was removed the wire in place. Next a 11 x 13-Romanian access sheath was passed over the wire and into the proximal ureter. Next flexible ureteroscope was inserted and renoscopy was performed which showed a stone in the upper pole, the stone consistency was consistent with struvite stones. Using the holmium laser the stones were partially fragmented. The fragments were removed using the stone basket, the of note there was multiple stones in the upper pole. Repeat renoscopy showed no additional stones or any sizable fragments. Given the appearance of struvite stones maximal basketing was performed leaving very little fragments. Pullback ureteroscopy was performed which showed no injury to the ureter or ureteral fragments. Next a 6-Romanian by 24 cm stent was passed over the wire, the proximal curl which was on fluoroscopy and distal curl was visualized and cystoscope. The bladder was emptied and the case. The patient was awakened from anesthesia and taken recovery in stable condition
[2020-06-10 10:10] VITALS: RESP 17
[2020-06-10 10:21] VITALS: BP 120/79; PULSE 73
--- NOTE | 2020-06-10 10:55 | FL ---
EXAMINATION TYPE: FL cystogram DATE OF EXAM: 06/10/2020 COMPARISON: NONE HISTORY: 55 year-old female left renal calculus TECHNIQUE: Fluoroscopy. FINDINGS: Fluoroscopic guidance was provided during procedure performed by Dr. Acosta. A total of 3 8 seconds of fluoroscopic time was utilized during the procedure and two spot images was acquired. IMPRESSION: As Above.
== END | disposition home or self-care (01) ==
LOC: OR 06:03
PROVIDERS: ATTEND Urology
DX: N20.0 Calculus of kidney (principal); N30.90 Cystitis, unspecified without hematuria; E11.9 Type 2 diabetes mellitus without complications; E78.5 Hyperlipidemia, unspecified; I10 Essential (primary) hypertension; E03.9 Hypothyroidism, unspecified; Z87.442 Personal history of urinary calculi; Z86.19 Personal history of other infectious and parasitic diseases; Z98.890 Other specified postprocedural states; Z96.0 Presence of urogenital implants; Z82.49 Family history of ischemic heart disease and other diseases of the circulatory system; Z83.3 Family history of diabetes mellitus; Z83.1 Family history of other infectious and parasitic diseases; Z84.89 Family history of other specified conditions; Z80.0 Family history of malignant neoplasm of digestive organs; Z79.84 Long term (current) use of oral hypoglycemic drugs; Z79.82 Long term (current) use of aspirin; Z79.890 Hormone replacement therapy; Z79.899 Other long term (current) drug therapy
CPT/HCPCS: 82365; 74430; 74018; 52356; C2625; C1758; C1769; J2250; J1100; J0690; J2405; J3010; J1580; J2704; Q9967

== ENCOUNTER → 2020-08-16 | Outpatient (CLI) | payer OTHER ==
--- NOTE | 2020-08-16 14:46 | US ---
EXAMINATION TYPE: US kidneys/renal and bladder DATE OF EXAM: 08/16/2020 COMPARISON: CT April 15, 2020 CLINICAL HISTORY: N20.0 Calculus of Kidneys. Hx of kidney stones and sepsis in 2020. No pain current ly. EXAM MEASUREMENTS: Right Kidney: 9.5 x 3.7 x 4.7 cm Left Kidney: 9.9 x 4.1 x 4.8 cm Right Kidney: No hydronephrosis or masses seen Left Kidney: No hydronephrosis or masses seen Bladder: anechoic Bilateral Jets seen There is no evidence for hydronephrosis at this point in time. No shadowing nephrolithiasis is seen. No masses are identified. The urinary bladder is not greatly distended. Bilateral ureteral jets a re seen. IMPRESSION: No hydronephrosis is noted bilaterally. Bilateral nonobstructing renal calculi on recent CT less well seen on ultrasound
== END | disposition home or self-care (01) ==
LOC: RADUSWWP 13:44
PROVIDERS: ATTEND Urology
DX: N20.0 Calculus of kidney (principal)
CPT/HCPCS: 76770

== ENCOUNTER → 2020-08-16 | Outpatient (CLI) | payer OTHER ==
[2020-08-16 10:44] LABS: Basophils % (A) 1 %; Eosinophils # (A) 0.2 k/uL (0-0.7); Eosinophils % (A) 4 %; HCT 36.9 % (34.0-46.0); HGB 12.1 gm/dL (11.4-16.0); Lymphocytes % (A) 40 %; MCH 32.2 pg (25.0-35.0); MCHC 32.7 g/dL (31.0-37.0); MCV 98.3 fL (80.0-100.0); Mean Platelet Volume 6.9; Monocytes # (A) 0.2 k/uL (0-1.0); Monocytes % (A) 5 %; Neutrophils # (A) 2.4 k/uL (1.3-7.7); Neutrophils % (A) 49 %; Platelet Count 169 k/uL (150-450); RBC 3.76 m/uL (3.80-5.40); RDW 14.3 % (11.5-15.5); WBC 4.9 k/uL (3.8-10.6)
[2020-08-16 14:39] LABS: Chol/HDL Ratio 2.7; Potassium 4.7 mmol/L (3.5-5.5)
[2020-08-16 14:40] LABS: African American GFR (CKD) 52.7 (60.0-200.0); Albumin 4.3 g/dL (3.80-4.90); Albumin/Globulin Ratio 1.72 (1.60-3.17); BUN/Creat Ratio 23.08 Ratio (12.00-20.00); Calcium 9.8 mg/dL (8.7-10.3); Globulin 2.5 g/dL (1.6-3.3); Non-African American GFR(CKD) 45.5 (60.0-200.0); Total Bilirubin 0.3 mg/dL (0.2-1.2); Total Protein 6.8 g/dL (6.2-8.2)
[2020-08-16 14:48] LABS: T4, Free (Free Thyroxine) 1.6 ng/dL (0.80-1.80)
[2020-08-16 15:08] LABS: Hemoglobin A1C 7.1 % (4.0-6.0)
== END | disposition home or self-care (01) ==
LOC: LABWHC1 08:55
PROVIDERS: ATTEND Internal Medicine
DX: N20.0 Calculus of kidney (principal); E78.2 Mixed hyperlipidemia; E03.9 Hypothyroidism, unspecified; E11.9 Type 2 diabetes mellitus without complications
CPT/HCPCS: 36415; 80053; 80061; 83036; 84439; 84443; 85025

== ENCOUNTER → 2020-12-31 | Outpatient (CLI) | payer OTHER ==
[2020-12-31 10:37] LABS: Appearance,Urine Clear (Clear); Bilirubin,Urine Negative (Negative); Blood,Urine Negative (Negative); Color,Urine Light Yellow; Glucose,Urine (UA) Negative (Negative); Hyaline Casts,Urine 1 /lpf (0-2); Ketones,Urine Negative (Negative); Leukocyte Esterase,Urine Small (Negative); Nitrite,Urine Negative (Negative); Protein,Urine Negative (Negative); RBC,Urine <1 /hpf (0-5); Specific Gravity,Urine 1.017 (1.001-1.035); Squamous Epithelial Cell,Urine 1 /hpf (0-4); Urobilinogen,Urine <2.0 mg/dL (<2.0); WBC,Urine 2 /hpf (0-5)
[2020-12-31 14:41] LABS: Basophils # (A) 0.02 X 10*3/uL (0.00-0.10); Basophils % (A) 0.5 %; Eosinophils # (A) 0.13 X 10*3/uL (0.04-0.35); Eosinophils % (A) 3.2 %; HCT 35.3 % (37.2-46.3); HGB 11.3 g/dL (12.0-15.0); Lymphocytes # (A) 1.05 X 10*3/uL (0.90-5.00); Lymphocytes % (A) 25.5 %; MCH 31.7 pg (27.0-32.0); MCV 98.9 fL (80.0-97.0); Monocytes # (A) 0.33 X 10*3/uL (0.20-1.00); Neutrophils # (A) 2.56 X 10*3/uL (1.80-7.70); Neutrophils % (A) 62.3 %; Platelet Count 161 X 10*3/uL (140-440); RBC 3.57 X 10*6/uL (4.10-5.20); RDW 13.3 % (11.5-14.5); WBC 4.11 X 10*3/uL (4.50-10.00)
[2020-12-31 15:53] LABS: % Iron Saturation 19.95 (12.00-45.00); African American GFR (CKD) 44.4 (60.0-200.0); Albumin 4.5 g/dL (3.80-4.90); Albumin/Globulin Ratio 1.96 (1.60-3.17); Anion Gap 6.1 mmol/L (4.00-12.00); BUN/Creat Ratio 22.67 Ratio (12.00-20.00); Calcium 9.9 mg/dL (8.7-10.3); Carbon Dioxide 28.9 mmol/L (21.6-31.8); Chol/HDL Ratio 3.22; Globulin 2.3 g/dL (1.6-3.3); LDL Cholesterol,Calculated 84.2 mg/dL (0.0-131.0); Magnesium 2.1 mg/dL (1.5-2.4); Non-African American GFR(CKD) 38.3 (60.0-200.0); Potassium 4.7 mmol/L (3.5-5.5); Total Bilirubin 0.5 mg/dL (0.2-1.2); Total Protein 6.8 g/dL (6.2-8.2); Uric Acid 5.2 mg/dL (2.9-7.7); VLDL Calculation 26.8 mg/dL (5.00-40.00)
[2020-12-31 16:01] LABS: Ferritin 50.5 ng/mL (10.0-291.0); T4, Free (Free Thyroxine) 1.4 ng/dL (0.80-1.80)
[2020-12-31 16:55] LABS: Hemoglobin A1C 6.4 % (4.0-6.0)
[2021-01-01 07:19] LABS: Microalbumin Creatinine Ratio <30 mg/g Creat (0-30); Urine Creatinine 72.3 mg/dL
== END | disposition home or self-care (01) ==
LOC: LABWHC1 08:42
PROVIDERS: ATTEND Internal Medicine
DX: E78.2 Mixed hyperlipidemia (principal); N20.0 Calculus of kidney; E11.22 Type 2 diabetes mellitus with diabetic chronic kidney disease; N18.31 Chronic kidney disease, stage 3a
CPT/HCPCS: 36415; 80053; 80061; 81001; 82043; 82306; 82570; 82728; 83036; 83540; 83550; 83735; 83970; 84100; 84439; 84443; 84550; 85025

== ENCOUNTER → 2021-02-11 | Outpatient (CLI) | payer OTHER ==
--- NOTE | 2021-02-11 13:14 | XR ---
EXAMINATION TYPE: XR lumbar spine 2 or 3V DATE OF EXAM: 02/11/2021 CLINICAL HISTORY: pain TECHNIQUE: Three views of the lumbar spine are submitted. COMPARISON: None. FINDINGS: There are 5 lumbar type vertebral bodies identified. The lumbar spine shows satisfactory alignment w ithout evidence of acute fracture or dislocation. Vertebral body heights are within normal limits. Se kate degenerative disc space narrowing L4-5 and L5-S1. The overlying soft tissue appears unremarkable . IMPRESSION: No acute fracture or dislocation is seen in the lumbar spine. ICD 10 NO FRACTURE, INITIAL EVALUATION
[2021-02-12 02:27] LABS: African American GFR (CKD) 58.1 (60.0-200.0); Anion Gap 9.5 mmol/L (4.00-12.00); BUN/Creat Ratio 26.67 Ratio (12.00-20.00); Calcium 9.8 mg/dL (8.7-10.3); Carbon Dioxide 25.5 mmol/L (21.6-31.8); Non-African American GFR(CKD) 50.1 (60.0-200.0); Potassium 4.8 mmol/L (3.5-5.5)
== END | disposition home or self-care (01) ==
LOC: LABWHC1 12:23
PROVIDERS: ATTEND Internal Medicine
DX: M47.816 Spondylosis without myelopathy or radiculopathy, lumbar region (principal); N18.31 Chronic kidney disease, stage 3a
CPT/HCPCS: 36415; 72100; 80048

== ENCOUNTER → 2021-04-29 | Outpatient (CLI) | payer OTHER ==
[2021-04-29 10:11] LABS: Appearance,Urine Clear (Clear); Bilirubin,Urine Negative (Negative); Blood,Urine Small (Negative); Color,Urine Light Yellow; Glucose,Urine (UA) Negative (Negative); Ketones,Urine Negative (Negative); Leukocyte Esterase,Urine Negative (Negative); Mucus,Urine Rare /hpf; Nitrite,Urine Negative (Negative); Protein,Urine Negative (Negative); RBC,Urine 6 /hpf (0-5); Specific Gravity,Urine 1.019 (1.001-1.035); Squamous Epithelial Cell,Urine <1 /hpf (0-4); Urobilinogen,Urine <2.0 mg/dL (<2.0); WBC,Urine 2 /hpf (0-5)
[2021-04-29 15:13] LABS: Basophils # (A) 0.02 X 10*3/uL (0.00-0.10); Basophils % (A) 0.4 %; Eosinophils # (A) 0.14 X 10*3/uL (0.04-0.35); Eosinophils % (A) 3.1 %; HCT 34.9 % (37.2-46.3); HGB 11.1 g/dL (12.0-15.0); Lymphocytes # (A) 1.53 X 10*3/uL (0.90-5.00); Lymphocytes % (A) 34.4 %; MCH 31.9 pg (27.0-32.0); MCHC 31.8 g/dL (32.0-37.0); MCV 100.3 fL (80.0-97.0); Mean Platelet Volume 9.6 fL (9.5-12.2); Monocytes # (A) 0.28 X 10*3/uL (0.20-1.00); Monocytes % (A) 6.3 %; Neutrophils # (A) 2.46 X 10*3/uL (1.80-7.70); Neutrophils % (A) 55.4 %; Platelet Count 177 X 10*3/uL (140-440); RBC 3.48 X 10*6/uL (4.10-5.20); RDW 13.5 % (11.5-14.5); WBC 4.45 X 10*3/uL (4.50-10.00)
[2021-04-29 17:05] LABS: Hemoglobin A1C 6.3 % (4.0-6.0)
[2021-04-29 18:24] LABS: Urine Creatinine 73.2 mg/dL
[2021-04-29 23:07] LABS: % Iron Saturation 21.88 (12.00-45.00); African American GFR (CKD) 47.9 (60.0-200.0); Albumin 4.6 g/dL (3.80-4.90); Albumin/Globulin Ratio 1.92 (1.60-3.17); Anion Gap 6.4 mmol/L (4.00-12.00); BUN/Creat Ratio 27.86 Ratio (12.00-20.00); Calcium 9.5 mg/dL (8.7-10.3); Carbon Dioxide 26.6 mmol/L (21.6-31.8); Chol/HDL Ratio 2.77; Globulin 2.4 g/dL (1.6-3.3); Non-African American GFR(CKD) 41.3 (60.0-200.0); Phosphorus 3.4 mg/dL (2.4-5.1); Potassium 5.4 mmol/L (3.5-5.5); Total Bilirubin 0.3 mg/dL (0.3-1.2); Uric Acid 5.2 mg/dL (2.9-7.7)
[2021-04-29 23:31] LABS: T4, Free (Free Thyroxine) 1.2 ng/dL (0.80-1.80)
== END | disposition home or self-care (01) ==
LOC: LABWHC1 09:02
PROVIDERS: ATTEND Internal Medicine
DX: D64.9 Anemia, unspecified (principal); N39.0 Urinary tract infection, site not specified; R80.9 Proteinuria, unspecified; N25.81 Secondary hyperparathyroidism of renal origin; E55.9 Vitamin D deficiency, unspecified; M10.9 Gout, unspecified
CPT/HCPCS: 36415; 80053; 80061; 81001; 82043; 82306; 82570; 82728; 83036; 83540; 83550; 83735; 83970; 84100; 84439; 84443; 84550; 85025

== ENCOUNTER → 2021-07-01 | Outpatient (CLI) | payer OTHER ==
[2021-07-01 10:07] LABS: HCT 35.1 % (34.0-46.0); HGB 11.4 gm/dL (11.4-16.0); MCH 31.8 pg (25.0-35.0); MCHC 32.5 g/dL (31.0-37.0); MCV 97.7 fL (80.0-100.0); Mean Platelet Volume 7.7; Platelet Count 162 k/uL (150-450); RBC 3.59 m/uL (3.80-5.40); RDW 12.8 % (11.5-15.5); WBC 4.9 k/uL (3.8-10.6)
[2021-07-01 10:17] LABS: ALT 25 U/L (4-34); AST 31 U/L (14-36); African American GFR (CKD) 56 (>60 ml/min/1.73 sqM); Albumin 4.4 g/dL (3.5-5.0); Albumin/Globulin Ratio 1.4; Alkaline Phosphatase 117 U/L (38-126); Anion Gap 7 mmol/L; Blood Urea Nitrogen 30 mg/dL (7-17); Calcium 10.2 mg/dL (8.4-10.2); Carbon Dioxide 29 mmol/L (22-30); Chloride 104 mmol/L (98-107); Globulin 3.1 g/dL; Glucose 126 mg/dL (74-99); Non-African American GFR(CKD) 49 (>60 ml/min/1.73 sqM); Potassium 5.3 mmol/L (3.5-5.1); Sodium 140 mmol/L (137-145); Total Bilirubin 0.4 mg/dL (0.2-1.3); Total Protein 7.5 g/dL (6.3-8.2)
[2021-07-01 10:33] LABS: T4, Free (Free Thyroxine) 1.67 ng/dL (0.78-2.19)
[2021-07-01 10:36] LABS: Appearance,Urine Clear (Clear); Bacteria,Urine Moderate /hpf; Bilirubin,Urine Negative (Negative); Blood,Urine Negative (Negative); Color,Urine Yellow; Glucose,Urine (UA) Negative (Negative); Ketones,Urine Negative (Negative); Leukocyte Esterase,Urine Moderate (Negative); Mucus,Urine Rare /hpf; Nitrite,Urine Negative (Negative); Protein,Urine Negative (Negative); RBC,Urine <1 /hpf (0-5); Specific Gravity,Urine 1.017 (1.001-1.035); Squamous Epithelial Cell,Urine <1 /hpf (0-4); Urobilinogen,Urine <2.0 mg/dL (<2.0); WBC,Urine 13 /hpf (0-5)
--- NOTE | 2021-07-01 11:20 | MM ---
Reason for exam: additional evaluation requested from prior study. Last mammogram was performed 1 year and 1 month ago. History: Patient is postmenopausal. Family history of breast cancer in maternal aunt at age 55, breast cancer in maternal cousin at age 45, and breast cancer in maternal cousin. Benign MG stereo VAD BX RT of the right breast, September 22, 2014. Benign US left guided VAD of the left breast, December 29, 2009. Took hormonal contraceptives for 38 years beginning at age 16. Physical Findings: Nurse did not find any significant physical abnormalities on exam. MG Diagnostic Mammo w CAD ELEAZAR Bilateral CC and MLO view(s) were taken. Prior study comparison: May 20, 2020, bilateral MG 3d screening mammo w/cad. February 06, 2019, bilateral MG screening mammo w CAD. There are scattered fibroglandular densities. Benign calcifications bilaterally. Previous mammotome biopsy in the right and left breast. There is chronic nodularity in the right breast. These results were verbally communicated with the patient and result sheet given to the patient on 07/01/21. ASSESSMENT: Benign, BI-RAD 2 RECOMMENDATION: Routine screening mammogram of both breasts in 1 year.
[2021-07-01 16:18] LABS: Hemoglobin A1C 6.9 % (4.0-6.0)
[2021-07-02 02:03] LABS: Chol/HDL Ratio 3.32; Cholesterol 156 mg/dL (0-200)
== END ==
LOC: RADMAMWWP 09:33
PROVIDERS: ATTEND Internal Medicine
DX: Z12.31 Encounter for screening mammogram for malignant neoplasm of breast (principal); E55.9 Vitamin D deficiency, unspecified; I10 Essential (primary) hypertension; E11.9 Type 2 diabetes mellitus without complications; R30.0 Dysuria; E03.9 Hypothyroidism, unspecified; E78.2 Mixed hyperlipidemia; Z80.3 Family history of malignant neoplasm of breast
CPT/HCPCS: 77066; 80053; 80061; 81001; 82043; 82306; 82570; 83036; 84439; 84443; 85027

== ENCOUNTER → 2021-08-12 | Outpatient (CLI) | payer OTHER ==
[2021-08-12 11:38] LABS: Appearance,Urine Clear (Clear); Bacteria,Urine Moderate /hpf; Bilirubin,Urine Negative (Negative); Blood,Urine Negative (Negative); Color,Urine Light Yellow; Glucose,Urine (UA) Negative (Negative); Ketones,Urine Negative (Negative); Leukocyte Esterase,Urine Moderate (Negative); Mucus,Urine Rare /hpf; Nitrite,Urine Negative (Negative); PH, Urine 5.5 (5.0-8.0); Protein,Urine Negative (Negative); RBC,Urine 1 /hpf (0-5); Specific Gravity,Urine 1.016 (1.001-1.035); Squamous Epithelial Cell,Urine 1 /hpf (0-4); Urobilinogen,Urine <2.0 mg/dL (<2.0); WBC,Urine 10 /hpf (0-5)
[2021-08-12 14:23] LABS: HCT 35.7 % (37.2-46.3); HGB 11.3 g/dL (12.0-15.0); MCHC 31.7 g/dL (32.0-37.0); MCV 97.8 fL (80.0-97.0); Mean Platelet Volume 9.8 fL (9.5-12.2); Platelet Count 183 X 10*3/uL (140-440); RBC 3.65 X 10*6/uL (4.10-5.20); RDW 13.2 % (11.5-14.5); WBC 4.89 X 10*3/uL (4.50-10.00)
[2021-08-12 15:23] LABS: Hepatitis A Antibody IgM Nonreactive (Nonreactive); Hepatitis B Core IgM Nonreactive (Nonreactive); Hepatitis B Surface Antigen Nonreactive (Nonreactive); Hepatitis C IgG Antibody Nonreactive (Nonreactive)
[2021-08-12 15:52] LABS: % Iron Saturation 16.4 (12.00-45.00)
[2021-08-12 15:53] LABS: African American GFR (CKD) 52.4 (60.0-200.0); Albumin 4.7 g/dL (3.8-4.9); Albumin/Globulin Ratio 1.87 (1.60-3.17); Anion Gap 10.7 mmol/L (4.00-12.00); BUN/Creat Ratio 23.46 Ratio (12.00-20.00); Blood Urea Nitrogen 30.5 mg/dL (9.0-27.0); Calcium 9.9 mg/dL (8.7-10.3); Carbon Dioxide 26.4 mmol/L (21.6-31.8); Globulin 2.5 g/dL (1.6-3.3); Magnesium 2.2 mg/dL (1.5-2.4); Non-African American GFR(CKD) 45.2 (60.0-200.0); Phosphorus 3.6 mg/dL (2.4-5.1); Potassium 5.2 mmol/L (3.5-5.5); Total Bilirubin 0.3 mg/dL (0.30-1.20); Total Protein 7.2 g/dL (6.2-8.2); Uric Acid 4.4 mg/dL (2.9-7.7)
[2021-08-12 19:31] LABS: Anti-DNA, DS unit <1.0 IU/mL; DNA Double-Stranded NEGATIVE (NEGATIVE)
[2021-08-12 19:33] LABS: Urine Creatinine 73.1 mg/dL (28.0-217.0)
[2021-08-15 14:45] LABS: C-ANCA <1:20 Titer (<1:20)
== END | disposition home or self-care (01) ==
LOC: LABWHC1 10:14
PROVIDERS: ATTEND Internal Medicine
DX: N18.31 Chronic kidney disease, stage 3a (principal); D64.9 Anemia, unspecified; N39.0 Urinary tract infection, site not specified; N25.81 Secondary hyperparathyroidism of renal origin; E55.9 Vitamin D deficiency, unspecified; M10.9 Gout, unspecified
CPT/HCPCS: 36415; 80053; 80074; 81001; 82043; 82306; 82570; 82728; 83516; 83540; 83550; 83735; 83883; 83970; 84100; 84166; 84550; 85027; 86038; 86160; 86162; 86225; 86255; 86334; 87077; 87086; 87186

== ENCOUNTER → 2021-08-31 | Outpatient (CLI) | payer OTHER ==
--- NOTE | 2021-08-31 20:01 | XR ---
EXAMINATION TYPE: XR wrist complete RT DATE OF EXAM: 08/31/2021 CLINICAL HISTORY: M25.531. Pain and swelling right radial side for 2 days. No known injury. TECHNIQUE: AP and lateral images of the right wrist are obtained. COMPARISON: None FINDINGS: There is no acute fracture/dislocation evident. There is a well ossified ossific density distal to the ulnar styloid which may represent old lesion fracture or accessory ossicle. The joint s paces appear within normal limits. Normal osseous mineralization. The overlying soft tissue appears unremarkable. IMPRESSION: No acute fracture or dislocation in the right wrist.
== END | disposition home or self-care (01) ==
LOC: RADXRMAIN 18:30
PROVIDERS: ATTEND Internal Medicine
DX: M25.531 Pain in right wrist (principal)

== ENCOUNTER → 2021-11-04 | Outpatient (CLI) | payer OTHER ==
[2021-11-04 11:27] LABS: Appearance,Urine Clear (Clear); Bacteria,Urine Rare /hpf; Bilirubin,Urine Negative (Negative); Blood,Urine Negative (Negative); Color,Urine Yellow; Glucose,Urine (UA) 4+ (Negative); Ketones,Urine Negative (Negative); Leukocyte Esterase,Urine Small (Negative); Mucus,Urine Rare /hpf; Nitrite,Urine Negative (Negative); Protein,Urine Negative (Negative); RBC,Urine <1 /hpf (0-5); Specific Gravity,Urine 1.022 (1.001-1.035); Squamous Epithelial Cell,Urine 1 /hpf (0-4); Urobilinogen,Urine <2.0 mg/dL (<2.0); WBC,Urine 14 /hpf (0-5)
[2021-11-04 14:53] LABS: ALT 26 U/L (8-44); AST 27 U/L (13-35); African American GFR (CKD) 50.9 (60.0-200.0); Albumin 4.6 g/dL (3.8-4.9); Albumin/Globulin Ratio 1.59 (1.60-3.17); Alkaline Phosphatase 97 U/L (41-126); BUN/Creat Ratio 21.73 Ratio (12.00-20.00); Blood Urea Nitrogen 28.9 mg/dL (9.0-27.0); Calcium 9.8 mg/dL (8.7-10.3); Carbon Dioxide 23.1 mmol/L (20.0-27.5); Chloride 104 mmol/L (96-109); Globulin 2.9 g/dL (1.6-3.3); Glucose 168 mg/dL (70-110); Magnesium 2.3 mg/dL (1.5-2.4); Sodium 139 mmol/L (135-145); Total Protein 7.5 g/dL (6.2-8.2)
[2021-11-04 14:54] LABS: Chol/HDL Ratio 2.95 Ratio; LDL Cholesterol,Calculated 70.8 mg/dL (0.0-131.0)
[2021-11-04 15:42] LABS: Basophils # (A) 0.02 X 10*3/uL (0.00-0.10); Basophils % (A) 0.5 %; Eosinophils % (A) 2.6 %; HCT 36.9 % (37.2-46.3); HGB 11.6 g/dL (12.0-15.0); Lymphocytes # (A) 1.26 X 10*3/uL (0.90-5.00); Lymphocytes % (A) 33.2 %; MCH 30.4 pg (27.0-32.0); MCHC 31.4 g/dL (32.0-37.0); MCV 96.9 fL (80.0-97.0); Mean Platelet Volume 9.7 fL (9.5-12.2); Monocytes # (A) 0.33 X 10*3/uL (0.20-1.00); Monocytes % (A) 8.7 %; Neutrophils # (A) 2.07 X 10*3/uL (1.80-7.70); Neutrophils % (A) 54.7 %; Platelet Count 189 X 10*3/uL (140-440); RBC 3.81 X 10*6/uL (4.10-5.20); RDW 13.9 % (11.5-14.5); WBC 3.79 X 10*3/uL (4.50-10.00)
[2021-11-05 03:15] LABS: Microalbumin Creatinine Ratio <30 mg/g Creat (0-30); Urine Creatinine 69.1 mg/dL (28.0-217.0)
== END | disposition home or self-care (01) ==
LOC: LABWHC1 09:22
PROVIDERS: ATTEND Internal Medicine
DX: I10 Essential (primary) hypertension (principal); E78.2 Mixed hyperlipidemia; E11.9 Type 2 diabetes mellitus without complications; E03.9 Hypothyroidism, unspecified
CPT/HCPCS: 36415; 80053; 80061; 81001; 82043; 82570; 83036; 83735; 84439; 84443; 85025

== ENCOUNTER → 2022-01-06 | Outpatient (CLI) | payer OTHER ==
[2022-01-06 14:18] LABS: Basophils # (A) 0.02 X 10*3/uL (0.00-0.10); Basophils % (A) 0.4 %; Eosinophils # (A) 0.12 X 10*3/uL (0.04-0.35); Eosinophils % (A) 2.4 %; HCT 41.7 % (37.2-46.3); HGB 12.8 g/dL (12.0-15.0); Immature Grans, Automated 0.2 %; Lymphocytes % (A) 26.1 %; MCHC 30.7 g/dL (32.0-37.0); MCV 97.7 fL (80.0-97.0); Mean Platelet Volume 9.7 fL (9.5-12.2); Monocytes # (A) 0.33 X 10*3/uL (0.20-1.00); Monocytes % (A) 6.6 %; NRBC Per 100 WBC 0 /100 WBCS (0.0-0.0); Neutrophils % (A) 64.3 %; Platelet Count 200 X 10*3/uL (140-440); RBC 4.27 X 10*6/uL (4.10-5.20); RDW 13.5 % (11.5-14.5); WBC 4.98 X 10*3/uL (4.50-10.00)
[2022-01-06 14:29] LABS: ALT 19 U/L (8-44); AST 24 U/L (13-35); African American GFR (CKD) 39.5 (60.0-200.0); Albumin 4.8 g/dL (3.8-4.9); Albumin/Globulin Ratio 1.59 (1.60-3.17); Alkaline Phosphatase 107 U/L (41-126); BUN/Creat Ratio 15.67 Ratio (12.00-20.00); Blood Urea Nitrogen 25.7 mg/dL (9.0-27.0); Calcium 10.2 mg/dL (8.7-10.3); Chloride 101 mmol/L (96-109); Chol/HDL Ratio 2.98 Ratio; Glucose 123 mg/dL (70-110); LDL Cholesterol,Calculated 70.9 mg/dL (0.0-131.0); Non-African American GFR(CKD) 34.1 (60.0-200.0); Potassium 4.7 mmol/L (3.5-5.5); Sodium 138 mmol/L (135-145); Total Protein 7.8 g/dL (6.2-8.2)
== END | disposition home or self-care (01) ==
LOC: LABWHC1 07:43
PROVIDERS: ATTEND Internal Medicine
DX: I10 Essential (primary) hypertension (principal); E78.2 Mixed hyperlipidemia; E11.9 Type 2 diabetes mellitus without complications; E03.9 Hypothyroidism, unspecified
CPT/HCPCS: 36415; 80053; 80061; 83036; 84439; 84443; 85025

== ENCOUNTER → 2022-03-10 | Outpatient (CLI) | payer OTHER ==
[2022-03-10 08:49] LABS: Appearance,Urine Clear (Clear); Bacteria,Urine Rare /hpf; Bilirubin,Urine Negative (Negative); Blood,Urine Negative (Negative); Color,Urine Light Yellow; Glucose,Urine (UA) 4+ (Negative); Ketones,Urine Negative (Negative); Leukocyte Esterase,Urine Moderate (Negative); Nitrite,Urine Negative (Negative); Protein,Urine Negative (Negative); RBC,Urine 1 /hpf (0-5); Squamous Epithelial Cell,Urine <1 /hpf (0-4); Urobilinogen,Urine <2.0 mg/dL (<2.0); WBC,Urine 17 /hpf (0-5)
[2022-03-10 14:40] LABS: HCT 39.6 % (37.2-46.3); HGB 12.6 g/dL (12.0-15.0); MCH 30.4 pg (27.0-32.0); MCHC 31.8 g/dL (32.0-37.0); MCV 95.4 fL (80.0-97.0); Mean Platelet Volume 9.6 fL (9.5-12.2); NRBC Per 100 WBC 0 /100 WBCS (0.0-0.0); Platelet Count 185 X 10*3/uL (140-440); RBC 4.15 X 10*6/uL (4.10-5.20); RDW 14.2 % (11.5-14.5)
[2022-03-10 15:34] LABS: % Iron Saturation 15.72 (12.00-45.00); African American GFR (CKD) 44.8 (60.0-200.0); Albumin 4.6 g/dL (3.8-4.9); Albumin/Globulin Ratio 1.73 (1.60-3.17); Anion Gap 12.7 mmol/L (10.00-18.00); BUN/Creat Ratio 18.78 Ratio (12.00-20.00); Blood Urea Nitrogen 27.8 mg/dL (9.0-27.0); Calcium 9.8 mg/dL (8.7-10.3); Ferritin 80.2 ng/mL (10.0-291.0); Globulin 2.7 g/dL (1.6-3.3); Magnesium 2.9 mg/dL (1.5-2.4); Non-African American GFR(CKD) 38.6 (60.0-200.0); Potassium 5.7 mmol/L (3.5-5.5); Total Bilirubin 0.3 mg/dL (0.30-1.20); Total Protein 7.2 g/dL (6.2-8.2); Uric Acid 3.7 mg/dL (2.9-7.7)
[2022-03-10 17:00] LABS: Microalbumin Creatinine Ratio <30 mg/g Creat (0-30); Urine Creatinine 61.8 mg/dL (28.0-217.0)
== END | disposition home or self-care (01) ==
LOC: LABWHC1 07:42
PROVIDERS: ATTEND Internal Medicine
DX: N18.31 Chronic kidney disease, stage 3a (principal); D64.9 Anemia, unspecified; N39.0 Urinary tract infection, site not specified; E21.3 Hyperparathyroidism, unspecified; E55.9 Vitamin D deficiency, unspecified; M10.9 Gout, unspecified
CPT/HCPCS: 36415; 80053; 81001; 82043; 82306; 82570; 82728; 83540; 83550; 83735; 83970; 84550; 85027

== ENCOUNTER → 2022-03-16 | Outpatient (CLI) | payer OTHER ==
[2022-03-16 14:51] LABS: African American GFR (CKD) 52.4 (60.0-200.0); Albumin 4.7 g/dL (3.8-4.9); Albumin/Globulin Ratio 1.85 (1.60-3.17); Anion Gap 9.1 mmol/L (10.00-18.00); BUN/Creat Ratio 19.54 Ratio (12.00-20.00); Blood Urea Nitrogen 25.4 mg/dL (9.0-27.0); Calcium 9.9 mg/dL (8.7-10.3); Carbon Dioxide 26.1 mmol/L (20.0-27.5); Globulin 2.5 g/dL (1.6-3.3); Magnesium 2.3 mg/dL (1.5-2.4); Non-African American GFR(CKD) 45.2 (60.0-200.0); Potassium 4.8 mmol/L (3.5-5.5); Total Bilirubin 0.2 mg/dL (0.30-1.20); Total Protein 7.2 g/dL (6.2-8.2)
== END | disposition home or self-care (01) ==
LOC: LABWHC1 07:38
PROVIDERS: ATTEND Internal Medicine
DX: N18.31 Chronic kidney disease, stage 3a (principal)
CPT/HCPCS: 36415; 80053; 83735

== ENCOUNTER → 2022-07-07 | Outpatient (CLI) | payer OTHER ==
--- NOTE | 2022-07-10 19:09 | MM ---
Reason for Exam: Screening (asymptomatic). Last screening mammogram was performed 12 month(s) ago. Patient History: Menarche at age 10. First Full-Term at age 18. Postmenopausal. Hormonal Contraceptives, from age 16 until age 48. 09/22/2014, Benign Core Biopsy on the right side. 12/29/2009, Benign Core Biopsy on the left side. Maternal cousin had breast cancer, age 45. Maternal cousin had breast cancer. Maternal aunt had breast cancer, age 55. Risk Values: Aishwarya 5 year model risk: 1.9%. NCI Lifetime model risk: 10.0%. Prior Study Comparison: 02/06/2019 Bilateral Screening Mammogram, [facility]. 05/20/2020 Bilateral Screening Mammogram, [facility]. 07/01/2021 Bilateral Diagnostic Mammogram, [facility]. Tissue Density: There are scattered fibroglandular densities. Findings: Analyzed By CAD. A couple benign oil cyst calcifications on the right. Chronic low density nodularity upper outer quadrant left breast. A microclip in either breast from previous biopsies. No significant change from prior exams. Overall Assessment: Benign, BI-RAD 2 Management: Screening Mammogram of both breasts in 1 year. 1. Patient should continue monthly self breast exams. 2. A clinical breast exam by your physician is recommended on an annual basis. 3. This exam should not preclude additional follow-up of suspicious palpable abnormalities. Electronically signed and approved by: Gil Gomez M.D. Radiologist
== END | disposition home or self-care (01) ==
LOC: RADMAMWWP 10:47
PROVIDERS: ATTEND Obstetrics & Gynecology
DX: Z12.31 Encounter for screening mammogram for malignant neoplasm of breast (principal)
CPT/HCPCS: 77067

== ENCOUNTER → 2022-07-14 | Outpatient (CLI) | payer OTHER ==
[2022-07-14 15:59] LABS: Basophils # (A) 0.02 X 10*3/uL (0.00-0.10); Basophils % (A) 0.3 %; Eosinophils # (A) 0.12 X 10*3/uL (0.04-0.35); Eosinophils % (A) 2.1 %; HCT 38.9 % (37.2-46.3); HGB 12.5 g/dL (12.0-15.0); Immature Grans, Automated 0.7 %; Lymphocytes # (A) 1.76 X 10*3/uL (0.90-5.00); Lymphocytes % (A) 30.3 %; MCH 30.3 pg (27.0-32.0); MCHC 32.1 g/dL (32.0-37.0); MCV 94.2 fL (80.0-97.0); Mean Platelet Volume 9.7 fL (9.5-12.2); Monocytes # (A) 0.28 X 10*3/uL (0.20-1.00); Monocytes % (A) 4.8 %; NRBC Per 100 WBC 0 /100 WBCS (0.0-0.0); Neutrophils # (A) 3.58 X 10*3/uL (1.80-7.70); Neutrophils % (A) 61.8 %; Platelet Count 201 X 10*3/uL (140-440); RBC 4.13 X 10*6/uL (4.10-5.20); RDW 13.6 % (11.5-14.5)
[2022-07-14 16:23] LABS: Ferritin 84.9 ng/mL (10.0-291.0); Follicle Stimulating Hormone 33.5 mIU/mL; LDL Cholesterol,Calculated 61.1 mg/dL (0.0-131.0)
[2022-07-14 16:30] LABS: Estradiol 15.3 pg/mL; Luteinizing Hormone 22.7 mIU/mL
[2022-07-14 16:35] LABS: Testosterone <2.50 ng/mL (7.00-45.62)
[2022-07-14 16:48] LABS: % Iron Saturation 15.65 (12.00-45.00); ALT 24 U/L (8-44); AST 23 U/L (13-35); Albumin 4.5 g/dL (3.8-4.9); Albumin/Globulin Ratio 1.77 (1.60-3.17); Alkaline Phosphatase 166 U/L (41-126); BUN/Creat Ratio 15.32 Ratio (12.00-20.00); Blood Urea Nitrogen 21.3 mg/dL (9.0-27.0); Calcium 9.6 mg/dL (8.7-10.3); Carbon Dioxide 25.7 mmol/L (20.0-27.5); Chloride 103 mmol/L (96-109); Globulin 2.6 g/dL (1.6-3.3); Glucose 135 mg/dL (70-110); Iron 60 ug/dL (50-170); Magnesium 2.2 mg/dL (1.5-2.4); Non-African American GFR(CKD) 41.4 (60.0-200.0); Phosphorus 3.7 mg/dL (2.4-5.1); Potassium 5.3 mmol/L (3.5-5.5); Sodium 140 mmol/L (135-145); Total Iron Binding Capacity 381 ug/dL (228-460); Total Protein 7.1 g/dL (6.2-8.2)
[2022-07-14 17:55] LABS: Appearance,Urine Cloudy (Clear); Bilirubin,Urine Negative (Negative); Blood,Urine Negative (Negative); Color,Urine Yellow (Yellow); Ketones,Urine Negative (Negative); Nitrite,Urine Positive (Negative); PH, Urine 5.5 (5.0-8.0); Specific Gravity,Urine 1.026 (1.001-1.030); Urobilinogen,Urine 0.2 (0.2,1.0)
[2022-07-14 17:58] LABS: Bacteria,Urine 4+ /HPF (None Seen)
[2022-07-14 18:21] LABS: Progesterone <0.05 ng/mL
[2022-07-14 23:27] LABS: Urine Creatinine 72.7 mg/dL (28.0-217.0)
== END | disposition home or self-care (01) ==
LOC: LABWHC1 09:30
PROVIDERS: ATTEND Internal Medicine
DX: N18.31 Chronic kidney disease, stage 3a (principal); E11.9 Type 2 diabetes mellitus without complications; E03.9 Hypothyroidism, unspecified; E78.2 Mixed hyperlipidemia
CPT/HCPCS: 36415; 80053; 80061; 81001; 82043; 82306; 82570; 82670; 82728; 83001; 83002; 83036; 83540; 83550; 83735; 83883; 83970; 84100; 84144; 84403; 84439; 84443; 84550; 85025; 86334

== ENCOUNTER → 2022-08-11 | Outpatient (CLI) | payer OTHER ==
--- NOTE | 2022-08-11 13:32 | US ---
EXAMINATION TYPE: US kidneys/renal and bladder DATE OF EXAM: 08/11/2022 COMPARISON: US 2019 CLINICAL HISTORY: N18.31 ckd stage 3A. Stage 3A CKD. Hx surgery on both kidneys for stones. EXAM MEASUREMENTS: Right Kidney: 9.8 x 5.0 x 4.6 cm Left Kidney: 10.7 x 5.3 x 5.1 cm Right Kidney: Indistinct hypoechoic area seen adjacent to kidney border: 6.6 x 3.6 x 0.6 cm. -?kidne y sweat sign Left Kidney: Indistinct hypoechoic area seen adjacent to kidney border: 4.0 x 0.4 x 0.5 cm. -?kidney sweat sign Bladder: Slightly limited, appears anechoic. Bilateral Jets seen: Yes IMPRESSION: Renal parenchymal thinning.
== END | disposition home or self-care (01) ==
LOC: RADUSWWP 11:07
PROVIDERS: ATTEND Internal Medicine
DX: N18.31 Chronic kidney disease, stage 3a (principal)
CPT/HCPCS: 76770

== ENCOUNTER → 2022-09-08 | Outpatient (CLI) | payer OTHER ==
--- NOTE | 2022-09-08 12:35 | US ---
EXAMINATION TYPE: US kidneys/renal and bladder DATE OF EXAM: 09/08/2022 COMPARISON: Multiple ultrasounds dating back to 08/20/2019, CT abdomen pelvis 04/15/2020. CLINICAL HISTORY: N28.1 RENAL CYST. renal cysts. EXAM MEASUREMENTS: Right Kidney: 9.4 x 4.3 x 3.8 cm Left Kidney: 10.2 x 4.9 x 4.4 cm Right Kidney: Cortical thinning. Left Kidney: Cortical thinning. Bladder: wnl Bilateral Jets seen: Yes There is no evidence for hydronephrosis at this point in time. No nephrolithiasis is seen. No wilfred s are identified. The urinary bladder is anechoic. Bilateral ureteral jets are seen. IMPRESSION: No evidence of obstructive uropathy. Mild cortical thinning bilaterally suggestive of medical renal d isease or sequela of prior injury.
== END | disposition home or self-care (01) ==
LOC: RADUSWWP 11:20
PROVIDERS: ATTEND Urology
DX: N28.1 Cyst of kidney, acquired (principal)
CPT/HCPCS: 76770

== ENCOUNTER → 2023-01-19 | Outpatient (CLI) | payer OTHER ==
[2023-01-19 11:22] LABS: HCT 38.9 % (37.2-46.3); HGB 11.9 g/dL (12.0-15.0); MCH 29.6 pg (27.0-32.0); MCHC 30.6 g/dL (32.0-37.0); MCV 96.8 fL (80.0-97.0); Mean Platelet Volume 9.1 fL (9.5-12.2); NRBC Per 100 WBC 0 /100 WBCS (0.0-0.0); Platelet Count 230 X 10*3/uL (140-440); RBC 4.02 X 10*6/uL (4.10-5.20); RDW 14.2 % (11.5-14.5); WBC 5.72 X 10*3/uL (4.50-10.00)
[2023-01-19 11:27] LABS: % Iron Saturation 15.62 (12.00-45.00); African American GFR (CKD) 48.8 (60.0-200.0); Albumin 4.4 g/dL (3.8-4.9); Albumin/Globulin Ratio 1.6 (1.60-3.17); Anion Gap 12.6 mmol/L (10.00-18.00); BUN/Creat Ratio 17.08 Ratio (12.00-20.00); Blood Urea Nitrogen 23.4 mg/dL (9.0-27.0); Calcium 9.6 mg/dL (8.7-10.3); Carbon Dioxide 27.5 mmol/L (20.0-27.5); Globulin 2.7 g/dL (1.6-3.3); Magnesium 2.3 mg/dL (1.5-2.4); Non-African American GFR(CKD) 42.1 (60.0-200.0); Phosphorus 3.9 mg/dL (2.4-5.1); Potassium 5.4 mmol/L (3.5-5.5); Total Bilirubin 0.2 mg/dL (0.30-1.20); Total Protein 7.1 g/dL (6.2-8.2); Uric Acid 3.9 mg/dL (2.9-7.7)
[2023-01-19 11:49] LABS: Ferritin 74.4 ng/mL (10.0-291.0)
[2023-01-19 14:12] LABS: Appearance,Urine Clear (Clear); Bilirubin,Urine Negative (Negative); Blood,Urine Negative (Negative); Color,Urine Yellow (Yellow); Ketones,Urine Negative (Negative); Nitrite,Urine Negative (Negative); Specific Gravity,Urine 1.029 (1.001-1.030); Urobilinogen,Urine 0.2 (0.2,1.0)
[2023-01-19 14:30] LABS: Urine Creatinine 68.4 mg/dL (28.0-217.0)
[2023-01-19 18:23] LABS: Microalbumin Creatinine Ratio <30 mg/g Creat (0-30)
== END | disposition home or self-care (01) ==
LOC: LABWHC1 07:14
PROVIDERS: ATTEND Internal Medicine
DX: E55.9 Vitamin D deficiency, unspecified (principal); N39.0 Urinary tract infection, site not specified; N25.81 Secondary hyperparathyroidism of renal origin; M10.9 Gout, unspecified; D63.1 Anemia in chronic kidney disease; N18.31 Chronic kidney disease, stage 3a
CPT/HCPCS: 36415; 80053; 81003; 82043; 82306; 82570; 82728; 83540; 83550; 83735; 83970; 84100; 84550; 85027

== ENCOUNTER → 2023-05-25 | Outpatient (CLI) | payer OTHER ==
--- NOTE | 2023-05-25 08:58 | XR ---
EXAMINATION TYPE: XR shoulder complete BILAT DATE OF EXAM: 05/25/2023 CLINICAL HISTORY: pain TECHNIQUE: Three views of the bilateral shoulder are obtained. COMPARISON: None FINDINGS: There is no acute fracture/dislocation evident. The acromioclavicular and glenohumeral pilar int spaces appear moderately narrowed. The visualized ribs are intact and unremarkable. IMPRESSION: 1. There is no acute fracture or dislocation. ICD 10 NO FRACTURE, INITIAL EVALUATION
== END | disposition home or self-care (01) ==
LOC: RADXRMAIN 08:25
PROVIDERS: ATTEND Internal Medicine
DX: M25.512 Pain in left shoulder (principal); M25.511 Pain in right shoulder

== ENCOUNTER → 2023-05-25 | Outpatient (CLI) | payer OTHER ==
[2023-05-25 12:02] LABS: Appearance,Urine Clear (Clear); Bilirubin,Urine Negative (Negative); Blood,Urine Negative (Negative); Color,Urine Yellow (Yellow); Ketones,Urine Negative (Negative); Nitrite,Urine Negative (Negative); Specific Gravity,Urine 1.023 (1.001-1.030); Urobilinogen,Urine 0.2 E.U./DL
[2023-05-25 12:08] LABS: Bacteria,Urine 3+ (None Seen)
[2023-05-25 13:03] LABS: Microalbumin Creatinine Ratio <19 mg/g Cr (0-30); Urine Creatinine 64.8 mg/dL (28.0-217.0)
[2023-05-25 13:05] LABS: HCT 40.8 % (37.2-46.3); HGB 12.8 d/dL (12.0-15.0); MCH 29.8 pg (27.0-32.0); MCHC 31.4 d/dL (32.0-37.0); MCV 95.1 FL (80.0-97.0); Mean Platelet Volume 9.9 FL (9.5-12.2); NRBC Per 100 WBC 0 X 10*3/uL (0.00-0.01); Platelet Count 207 X 10*3/uL (140-440); RBC 4.29 X 10*6/uL (4.10-5.20); RDW 13.5 % (11.5-14.5); WBC 6.43 X 10*3/uL (4.50-10.00)
[2023-05-25 13:06] LABS: Basophils # (A) 0.03 X 10*3/uL (0.00-0.10); Basophils % (A) 0.5 %; Eosinophils # (A) 0.17 X 10*3/uL (0.04-0.35); Eosinophils % (A) 2.6 %; Lymphocytes # (A) 1.82 X 10*3/uL (0.90-5.00); Lymphocytes % (A) 28.3 %; Monocytes # (A) 0.36 X 10*3/uL (0.20-1.00); Monocytes % (A) 5.6 %; Neutrophils # (A) 4.02 X 10*3/uL (1.80-7.70); Neutrophils % (A) 62.5 %
[2023-05-25 13:37] LABS: ALT 23 U/L (8-44); AST 24 U/L (13-35); Albumin 4.7 d/dL (3.8-4.9); Albumin/Globulin Ratio 1.74 Ratio (1.60-3.17); Alkaline Phosphatase 182 U/L (41-126); BUN/Creat Ratio 17.85 Ratio (12.00-20.00); Blood Urea Nitrogen 23.2 mg/dL (9.0-27.0); Calcium 9.6 mg/dL (8.7-10.3); Carbon Dioxide 25.3 mmol/L (21.6-31.8); Chloride 102 mmol/L (96-109); Chol/HDL Ratio 2.96 Ratio; Globulin 2.7 d/dL (1.6-3.3); Glucose 129 mg/dL (70-110); LDL Cholesterol,Calculated 68.4 mg/dL (0.0-131.0); Potassium 4.5 mmol/L (3.5-5.5); Sodium 139 mmol/L (135-145); Total Bilirubin 0.3 mg/dL (0.3-1.2); Total Protein 7.4 d/dL (6.2-8.2); Uric Acid 4.3 mg/dL (2.9-7.7)
== END | disposition home or self-care (01) ==
LOC: LABWHC1 07:34
PROVIDERS: ATTEND Internal Medicine
DX: I10 Essential (primary) hypertension (principal); E11.9 Type 2 diabetes mellitus without complications; E78.2 Mixed hyperlipidemia; E03.9 Hypothyroidism, unspecified
CPT/HCPCS: 36415; 80053; 80061; 81001; 82043; 82570; 83036; 83735; 84439; 84443; 84550; 85025

== ENCOUNTER → 2023-06-13 | Outpatient (CLI) | payer OTHER ==
[2023-06-13 16:55] VITALS: BP 135/82; PULSE 83; TEMP 98; BMI 38.5
--- NOTE | 2023-06-13 17:05 | P.HPBAR ---
Bariatric H&P - History & Physicial H&P Date: 06/13/23 History & Physicial: Visit/CC: new patient Patient initial contact: Initial weight: Initial weight in pounds: Height: 5 ft 2.5 in Initial BMI: Last weight: Current weight: 97.069 kg Current weight in pounds: 214.00 Current BMI: 38.5 [place] body weight (based on NIH guidelines): 51.029 kg Excess body weight loss: The patient is a 58 year-old F who presents for Bariatric Assessment. Tried weight watchers and looking into sleeve gastrectomy. Highest weight is 270 pounds. Lost 80 pounds weight loss in the past. She is on adipex. She reports dry mouth. All family members with weight issues. NO moderate hearburn. She had inguinal hernia repair. No IBD> Colonsocpy was September. NO polypsNO upper scoper. She has gallbladder. Has all organs. No food intolerance. NO dyphagia. No sleep apnea. No lower back pain. Has hip pain, right. No knee pain. No ankle pain. No blod DVT. NO stomach or esophageal cancer. She is seitching insurance. Past Medical History Past Medical History: Diabetes Mellitus, Hyperlipidemia, Thyroid Disorder Additional Past Medical History / Comment(s): NIDDM type II, hypothyroid, past migraines, bronchitis in past History of Any Multi-Drug Resistant Organisms: ESBL Year Discovered:: 06/03/20 MDRO Source:: ESBL URINE Past Surgical History: Heart Catheterization, Hernia Repair Additional Past Surgical History / Comment(s): R inguinal hernia repair, colonoscopy-normal, 2015 cardiac cath-normal. kidney stones removed Past Anesthesia/Blood Transfusion Reactions: Postoperative Nausea & Vomiting (PONV) Past Psychological History: No Psychological Hx Reported Smoking Status: Never smoker Past Alcohol Use History: None Reported Past Drug Use History: None Reported - Past Family History Father Family Medical History: Coronary Artery Disease (CAD), Myocardial Infarction (AL) Additional Family Medical History / Comment(s): Pt does not know at what age father had AL. She states he of heart disease at the age of 62 yrs. Mother Family Medical History: Diabetes Mellitus Additional Family Medical History / Comment(s): Mother of sepsis. Brother(s) Family Medical History: Myocardial Infarction (AL) Additional Family Medical History / Comment(s): Brother had a AL at the age of 52 yrs. Sister(s) Family Medical History: Cancer, Myocardial Infarction (AL) Additional Family Medical History / Comment(s): RECTAL CANCER Surgical - Exam Vital Signs Temp Pulse BP 98.0 F 83 135/82 06/13/23 16:42 06/13/23 16:42 06/13/23 16:42 Bariatric Checklist Checklist: Plan: Checklist: EGD: 1. Hiatal hernia: 2. H. Pylori: HgbA1c: Vitamin D: Smoking: Never smoker Primary care physician referral: Dr. Carcamo Psychiatry clearance: Cardiology clearance: Sleep study: Diet journal: VTE risk score: VTE risk level: Rehab needs at discharge:
== END ==
LOC: BARWHC3 16:26
PROVIDERS: ATTEND Surgery Plastic and Reconstructive Surgery
DX: Z53.9 Procedure and treatment not carried out, unspecified reason (principal)
CPT/HCPCS: 99212

== ENCOUNTER → 2023-07-20 | Outpatient (CLI) | payer OTHER ==
[2023-07-20 08:57] LABS: INR 0.9 (<1.2); Partial Thromboplastin Time 24.4 sec (22.0-30.0); Prothrombin Time 9.9 sec (9.0-12.0)
[2023-07-20 11:07] LABS: HCT 40.8 % (37.2-46.3); HGB 12.6 d/dL (12.0-15.0); MCH 30.2 pg (27.0-32.0); MCHC 30.9 d/dL (32.0-37.0); MCV 97.8 FL (80.0-97.0); Mean Platelet Volume 9.3 FL (9.5-12.2); NRBC Per 100 WBC 0 X 10*3/uL (0.00-0.01); Platelet Count 196 X 10*3/uL (140-440); RBC 4.17 X 10*6/uL (4.10-5.20); RDW 14.4 % (11.5-14.5)
[2023-07-20 11:39] LABS: Prealbumin 34.2 mg/dL (18.0-42.0)
[2023-07-20 14:35] LABS: % Iron Saturation 14.73 (12.00-45.00); Ferritin 81.6 ng/mL (10.0-291.0); Iron 52 UG/DL (50-170); Total Iron Binding Capacity 353 UG/DL (228-460)
[2023-07-20 15:03] LABS: ALT 20 U/L (8-44); AST 21 U/L (13-35); Albumin 4.7 d/dL (3.8-4.9); Albumin/Globulin Ratio 1.88 Ratio (1.60-3.17); Alkaline Phosphatase 130 U/L (41-126); BUN/Creat Ratio 21.82 Ratio (12.00-20.00); Calcium 9.7 mg/dL (8.7-10.3); Carbon Dioxide 26.2 mmol/L (21.6-31.8); Chloride 104 mmol/L (96-109); Globulin 2.5 d/dL (1.6-3.3); Glucose 114 mg/dL (70-110); Magnesium 2.1 mg/dL (1.5-2.4); Phosphorus 3.6 mg/dL (2.4-5.1); Potassium 4.5 mmol/L (3.5-5.5); Sodium 141 mmol/L (135-145); Total Bilirubin 0.2 mg/dL (0.3-1.2); Total Protein 7.2 d/dL (6.2-8.2); Uric Acid 3.1 mg/dL (2.9-7.7)
[2023-07-20 16:13] LABS: Appearance,Urine Clear (Clear); Bilirubin,Urine Negative (Negative); Blood,Urine Negative (Negative); Color,Urine Yellow (Yellow); Ketones,Urine Negative (Negative); Nitrite,Urine Negative (Negative); Urobilinogen,Urine 0.2 E.U./DL
[2023-07-20 17:57] LABS: Microalbumin Creatinine Ratio <19 mg/g Cr (0-30); Urine Creatinine 61.6 mg/dL (28.0-217.0)
[2023-07-21 20:50] LABS: Chol/HDL Ratio 2.86 Ratio; LDL Cholesterol,Calculated 50.6 mg/dL (0.0-131.0)
--- NOTE | 2023-07-23 08:55 | MM ---
Reason for Exam: Screening (asymptomatic). Last mammogram was performed 1 year(s) and 1 month(s) ago. Patient History: Menarche at age 10. First Full-Term at age 18. Postmenopausal. Hormonal Contraceptives, from age 16 until age 48. 09/22/2014, Benign Core Biopsy on the right side. 12/29/2009, Benign Core Biopsy on the left side. Maternal cousin had breast cancer, age 45. Maternal cousin had breast cancer. Maternal aunt had breast cancer, age 55. Risk Values: Aishwarya 5 year model risk: 1.9%. NCI Lifetime model risk: 9.7%. Prior Study Comparison: 05/20/2020 Bilateral Screening Mammogram, [facility]. 07/01/2021 Bilateral Diagnostic Mammogram, [facility]. 07/07/2022 Bilateral MG screening mammo w CAD, [facility]. Tissue Density: There are scattered fibroglandular densities. Findings: Analyzed By CAD. There is no suspicious group of microcalcifications or new suspicious mass in either breast. Benign calcifications within both breasts. Biopsy clips within both breasts. No significant change from prior exam. Overall Assessment: Benign, BI-RAD 2 Management: Screening Mammogram of both breasts in 1 year. A clinical breast exam by your physician is recommended on an annual basis and results should be correlated with mammographic findings. Note on Aishwarya scores and lifetime risk: 1. A Aishwarya score greater than 3% is considered moderate risk. If this is the case, consider specialist referral to assess eligibility for a risk reducing agent. If overall lifetime risk for the development of breast cancer is 20% or higher, the patient may qualify for future screening with alternating mammogram and breast MRI. Electronically signed and approved by: Jeremy Bermudez D.O.
[2023-07-23 13:28] LABS: Zinc, Serum 65 ug/dL (60-130)
[2023-07-24 07:33] LABS: Anabasine Urine <2.0 ng/mL (<2.0)
[2023-07-24 08:12] LABS: Selenium 143 mcg/L (63-160)
[2023-07-25 07:01] LABS: Vitamin A 75 ug/dL (38-106)
== END | disposition home or self-care (01) ==
LOC: RADMAMWWP 07:40
PROVIDERS: ATTEND Internal Medicine
DX: Z12.31 Encounter for screening mammogram for malignant neoplasm of breast (principal); N18.31 Chronic kidney disease, stage 3a; K91.2 Postsurgical malabsorption, not elsewhere classified; D50.8 Other iron deficiency anemias; K74.1 Hepatic sclerosis; E89.1 Postprocedural hypoinsulinemia; Z78.0 Asymptomatic menopausal state; Z71.51 Drug abuse counseling and surveillance of drug abuser; Z80.3 Family history of malignant neoplasm of breast
CPT/HCPCS: 77067; 80053; 80061; 80323; 81003; 82043; 82306; 82525; 82570; 82607; 82728; 82746; 83036; 83540; 83550; 83735; 83970; 84100; 84134; 84255; 84425; 84443; 84550; 84590; 84630; 85027; 85610; 85730; 93005

== ENCOUNTER → 2023-09-18 | Outpatient (CLI) | payer OTHER ==
--- NOTE | 2023-09-19 05:51 | MR ---
EXAMINATION TYPE: MR shoulder RT wo con DATE OF EXAM: 09/18/2023 COMPARISON: Bilateral shoulder x-rays May 25, 2023 HISTORY: Right shoulder pain. TECHNIQUE: Multiplanar, multisequence imaging of the right shoulder is performed without contrast. FINDINGS: Rotator Cuff: Increased signal in the distal supraspinatus and infraspinatus tendons with articular s urface full-thickness tear involving anterior one half fibers of the supraspinatus tendon sagittal im age 24 and coronal image 12. Scapularis tendon is intact. Rotator cuff muscle bulk is preserved. Acromioclavicular Joint: Moderate to severe narrowing with moderate capsular hypertrophy and spurring . Loss of underlying fat plane near the myotendinous junction sagittal image 18 for reference. Glenohumeral Joint: Small to moderate size joint effusion extending anteriorly. No significant spurri ng. Labrum: Increased signal superior labrum consistent with degenerative tearing. Biceps Tendon: The long head of biceps is in normal location within bicipital groove. Intracapsular p ortion is not as well identified. Bone marrow signal: No focal abnormal marrow signal is appreciated. Other: No additional significant abnormality is appreciated. IMPRESSION: 1. Tendinosis of the distal supraspinatus and infraspinatus tendons with partial tearing of the supra spinatus tendon noted. 2. Fairly moderate to severe AC joint arthropathy with suggestion of underlying impingement. 3. Degenerative superior labral tear. Small to moderate size glenohumeral joint effusion.
== END | disposition home or self-care (01) ==
LOC: RADMRIMAIN 20:00
PROVIDERS: ATTEND Orthopaedic Surgery
DX: M19.011 Primary osteoarthritis, right shoulder (principal); M25.411 Effusion, right shoulder; M67.813 Other specified disorders of tendon, right shoulder; M24.811 Other specific joint derangements of right shoulder, not elsewhere classified

== ENCOUNTER → 2023-10-19 | Outpatient (CLI) | payer BC ==
[2023-10-19 11:10] LABS: Appearance,Urine Clear (Clear); Bacteria,Urine Few /hpf; Bilirubin,Urine Negative (Negative); Blood,Urine Negative (Negative); Color,Urine Light Yellow; Glucose,Urine (UA) 4+ (Negative); Ketones,Urine Negative (Negative); Leukocyte Esterase,Urine Moderate (Negative); Mucus,Urine Rare /hpf; Nitrite,Urine Negative (Negative); PH, Urine 5.5 (5.0-8.0); Protein,Urine Negative (Negative); RBC,Urine 1 /hpf (0-5); Specific Gravity,Urine 1.033 (1.001-1.035); Squamous Epithelial Cell,Urine <1 /hpf (0-4); Urobilinogen,Urine <2.0 mg/dL (<2.0); WBC,Urine 46 /hpf (0-5)
[2023-10-19 11:30] LABS: Creatinine,Urine Random 119.3 mg/dL
[2023-10-19 16:20] LABS: Basophils # (A) 0.03 X 10*3/uL (0.00-0.10); Basophils % (A) 0.6 %; Eosinophils # (A) 0.08 X 10*3/uL (0.04-0.35); Eosinophils % (A) 1.6 %; HCT 39.5 % (37.2-46.3); HGB 13.1 g/dL (12.0-15.0); Lymphocytes # (A) 1.35 X 10*3/uL (0.90-5.00); Lymphocytes % (A) 26.8 %; MCH 32.5 pg (27.0-32.0); MCHC 33.2 g/dL (32.0-37.0); Mean Platelet Volume 9.9 FL (9.5-12.2); Monocytes # (A) 0.35 X 10*3/uL (0.20-1.00); NRBC Per 100 WBC 0 X 10*3/uL (0.00-0.01); Neutrophils % (A) 63.6 %; Platelet Count 228 X 10*3/uL (140-440); RBC 4.03 X 10*6/uL (4.10-5.20); RDW 13.7 % (11.5-14.5); WBC 5.03 X 10*3/uL (4.50-10.00)
[2023-10-19 17:03] LABS: % Iron Saturation 16.62 (12.00-45.00); ALT 26 U/L (8-44); AST 23 U/L (13-35); Albumin 4.7 g/dL (3.8-4.9); Albumin/Globulin Ratio 1.68 Ratio (1.60-3.17); Alkaline Phosphatase 157 U/L (41-126); BUN/Creat Ratio 17.15 Ratio (12.00-20.00); Blood Urea Nitrogen 22.3 mg/dL (9.0-27.0); Calcium 9.7 mg/dL (8.7-10.3); Carbon Dioxide 24.6 mmol/L (21.6-31.8); Chloride 103 mmol/L (96-109); Globulin 2.8 g/dL (1.6-3.3); Glucose 97 mg/dL (70-110); Iron 63 UG/DL (50-170); Magnesium 2.2 mg/dL (1.5-2.4); Phosphorus 3.4 mg/dL (2.4-5.1); Potassium 4.6 mmol/L (3.5-5.5); Sodium 141 mmol/L (135-145); Total Bilirubin 0.4 mg/dL (0.3-1.2); Total Iron Binding Capacity 379 UG/DL (228-460); Total Protein 7.5 g/dL (6.2-8.2); Uric Acid 3.6 mg/dL (2.9-7.7)
== END | disposition home or self-care (01) ==
LOC: LABWHC1 09:11
PROVIDERS: ATTEND Internal Medicine
DX: I12.9 Hypertensive chronic kidney disease with stage 1 through stage 4 chronic kidney disease, or unspecified chronic kidney disease (principal); E11.22 Type 2 diabetes mellitus with diabetic chronic kidney disease; N18.2 Chronic kidney disease, stage 2 (mild); E03.9 Hypothyroidism, unspecified
CPT/HCPCS: 36415; 80053; 81001; 82043; 82306; 82570; 82728; 83036; 83540; 83550; 83735; 83970; 84100; 84156; 84166; 84443; 84550; 85025; 87077; 87086; 87186

== ENCOUNTER 2023-11-08 07:38 | Day surgery (SDC) | payer BC, OTHER ==
[2023-11-01 11:24] VITALS: BMI 34.7
--- NOTE | 2023-11-07 22:03 | HP ---
HISTORY AND PHYSICAL DATE OF SURGERY: 11/08/2023. HISTORY OF PRESENT ILLNESS: Jenni Landry is a 58-year-old patient seen with progressive right shoulder pain. We discussed options for treatment. She elected to proceed with right shoulder arthroscopy. Consent regarding procedure was obtained. Medical clearance was provided. PAST MEDICAL HISTORY: Hypertension, hypothyroidism, mqy-joaoiti-mgrdxttay diabetes. PAST SURGICAL HISTORY: Herniorrhaphy, kidney surgery. DAILY MEDICATIONS: 1. Amlodipine. 2. Atorvastatin. 3. Glipizide. 4. Levothyroxine. 5. Omeprazole. ALLERGIES: None. SOCIAL HISTORY: She denies tobacco use. PHYSICAL EVALUATION OF THE RIGHT SHOULDER: Flexion is 120 degrees, abduction is 100 degrees, external rotation is 40 degrees with pain and weakness. She has tenderness along the anterolateral acromion and rotator cuff insertion. Impingement is positive at 90. Cross-body adduction sign is positive. Drop-arm sign is positive. Distal neurovascular exam is intact. IMAGING STUDIES: Radiographs of the right shoulder revealed a type 2 acromion, acromioclavicular joint osteoarthritis, and cystic changes of the tuberosity. MRI revealed a rotator cuff tear, acromioclavicular joint osteoarthritis, and labral tear. IMPRESSION: 1. Right shoulder impingement with rotator cuff tear. 2. Right shoulder acromioclavicular joint osteoarthritis. 3. Right shoulder labral tear. 4. Hypertension. 5. Hypothyroidism. 6. Cxf-cjetlog-sgnacyuki diabetes. PLAN: Right shoulder arthroscopy with subacromial decompression, arthroscopic rotator cuff repair, Bacilio procedure, biceps tenodesis, and debridement. MMODL / IJN: [id number] /
[2023-11-08] MEDS ORDERED: MIDAZOLAM 2 MG/2 ML VIAL IV PRN (07:55)
[2023-11-08] MEDS ORDERED: HYDROmorphone 0.5 MG/0.5 ML SYRINGE IVP PRN (07:55)
[2023-11-08] MEDS ORDERED: SCOPOLAMINE 1 MG/72 HR PATCH TRANSDERM ONE (07:55)
[2023-11-08] MEDS ORDERED: LACTATED RINGERS 1,000 ML IV SCH (07:55)
[2023-11-08] MEDS ORDERED: DEXAMETHASONE SOD PHOSPHATE 4 MG/ML 1 ML VIAL IV ONE (07:55)
[2023-11-08] MEDS ORDERED: ONDANSETRON 4 MG/2 ML VIAL IVP ONE (07:55)
[2023-11-08 08:28] LABS: Glucose,Whole Blood 101 mg/dL (70-110)
[2023-11-08] MEDS ORDERED: MIDAZOLAM 2 MG/2 ML VIAL IVP ONE (08:38)
[2023-11-08] MEDS ORDERED: fentaNYL (PF) 50 MCG/ML 2 ML AMP IVP ONE (08:39)
[2023-11-08] MEDS ORDERED: SUCCINYLCHOLINE CHLORIDE 200 MG/10 ML VIAL IV ONE (09:42)
[2023-11-08] MEDS ORDERED: MIDAZOLAM 2 MG/2 ML VIAL ONE (09:42)
[2023-11-08] MEDS ORDERED: LIDOCAINE 4% LTA KIT (4 ML) TOPICAL ONE (09:42)
[2023-11-08] MEDS ORDERED: LIDOCAINE 1% INJ 10MG/ML (20 ML MDV) ONE (09:42)
[2023-11-08] MEDS ORDERED: ROPIVACAINE 5 MG/ML 30 ML VIAL ONE (09:42)
[2023-11-08] MEDS ORDERED: PROPOFOL 10 MG/ML 20 ML VIAL IV ONE (09:42)
[2023-11-08] MEDS ORDERED: KETOROLAC 15 MG/ML 1 ML VIAL ONE (09:42)
[2023-11-08] MEDS ORDERED: fentaNYL (PF) 50 MCG/ML 2 ML AMP ONE (09:42)
--- NOTE | 2023-11-08 10:53 | P.ANPRN ---
Procedure Note - Anesthesia - Nerve Block Performed Right Interscalene Single Time Out Performed: Yes ([id number]) Date of Procedure: 11/08/23 Procedure Start Time: :39 Procedure Stop Time: :44 Location of Patient: PreOp Indication: Acute Post-Operative Pain, Requested by Surgeon Specifically requested for management of pain by DrPedro Pablo: Christopher Palmer Sedation Type: Sedate with meaningful contact maintained Preparation: Sterile Prep Position: Supine Catheter: None Needle Types: Pajunk Needle Gauge: 21 Ultrasound used to visualize needle placement: Yes Ultrasound used to observe medication spread: Yes Injectate: 0.5% Ropivacaine (see comment for volume) (30cc) Blood Aspirated: No Pain Paresthesia on Injection Noted: No Resistance on Injection: Normal Image Stored and Saved: Yes Events: Uneventful and Well Tolerated
--- NOTE | 2023-11-08 11:47 | P.OP ---
Date of Procedure: 11/08/23 Preoperative Diagnosis: Right shoulder impingement Postoperative Diagnosis: 1. Right shoulder rotator cuff tear 2. Right shoulder partial long head biceps tendon tear 3. Right shoulder impingement 4. Right shoulder acromioclavicular joint osteoarthritis Procedure(s) Performed: 1. Right shoulder arthroscopic rotator cuff repair 2. Right shoulder arthroscopic biceps tenodesis 3. Right shoulder arthroscopic subacromial decompression 4. Right shoulder arthroscopic Bacilio procedure Implants: 3Arthrex 4.75 swivel lock anchors 2Arthrex 5.5 swivel lock anchors Anesthesia: GETA, regional (Interscalene block) Surgeon: Christopher Palmer Estimated Blood Loss (ml): 7 Pathology: none sent Condition: stable Disposition: PACU Indications for Procedure: 58-year-old patient seen with progressive right shoulder pain. After having treatment options discussed, she elected to proceed with arthroscopy. Operative Findings: See description of procedure Description of Procedure: Patient underwent an interscalene block by department of anesthesia. The patient was then taken to the operative suite. The patient underwent a general anesthetic by the department of anesthesia. The patient was placed into a lateral position and secured. There was appropriate padding of the bony prominence. Right shoulder was then prepped and draped in normal sterile orthopedic fashion. We placed the extremity in 10 pounds of longitudinal traction. A posterior incision was now made for a posterior working portal site. The trocar and cannula were inserted into the glenohumeral joint. Arthroscopy was initiated. Spinal needle was now inserted anteriorly, to ascertain the anterior working portal site. An incision was now made in that area, a trocar was inserted followed by a probe. There was significant partial tearing long head biceps tendon. There were mild grade I chondromalacia changes. The labrum appeared stable. At this point I decided to proceed with an arthroscopic biceps tenodesis. I reduced a cannula through an anterior portal site. I passed a loop and stitch suture through the biceps tendon and then released it from the superior labrum. I punched a hole at the interval for insertion of an anchor. The suture limb was passed through the eyelet of an Arthrex 4.75 swivel lock anchor. I placed into the prepunched hole while my investment sales assistant tensioned the suture and help deployed the anchor with good fixation noted. The residual suture limb was clipped. I had a stable appearing biceps tenodesis. Instruments were now removed from the glenohumeral joint. Utilizing the posterior working portal site, the trocar and cannula were inserted into the subacromial space. Arthroscopy initiated. I made an incision 2 fingerbreadths lateral to the acromion. I introduced my trocar followed by my ArthroCare ablator. I now began ablating thick subacromial bursal tissue, which exposed the undersurface of the anterior acromion. There was diminished subacromial space. There was a very prominent anterior acromion. A motorized bur was introduced and a subacromial decompression was performed. I also excised some osteophytes off the inferior aspect of the distal clavicle. The AC joint was visualized and noted to be fairly arthritic. The motorized bur was introduced in the anterior portal site and a Bacilio procedure was performed without difficulty removing 8 mm of the distal clavicle, decompressing the AC joint nicely. I turned my attention to the rotator cuff. There was a 2 cm rotator cuff tear. I debrided the margins getting down to a stable tendon tissue. The defect/tear measured approximately 2.5 cm and was freely mobile over the footprint. I abraded the footprint with a motorized bur. I made an accessory portal site of the lateral acromion. I reduced 2 Medial Row anchors with Arthrex 4.75 swivel lock anchors and 2 sutures in each anchor. I now passed all 8 limbs of suture through good bites of rotator cuff tendon. We now crisscrossed the sutures and introduced to Arthrex 5.5 swivel lock anchors for a lateral fixation which compressed the tendon along the footprint very nicely. All residual suture limbs were now clipped. We had good compression of the tend on along the entire footprint. Instruments now removed from the portal sites. All portal sites were approximated with nylon suture. Sterile dressings were applied followed by a shoulder immobilizer. The patient was awakened, transferred to a bed, and taken to recovery in stable condition.
[2023-11-08 12:10] VITALS: TEMP 97.1
[2023-11-08 12:36] VITALS: RESP 20
[2023-11-08 13:52] VITALS: BP 126/78; PULSE 56
== END 2023-11-08 14:27 | disposition home or self-care (01) ==
LOC: OR 07:38
PROVIDERS: ATTEND Orthopaedic Surgery
DX: S46.111A Strain of muscle, fascia and tendon of long head of biceps, right arm, initial encounter (principal); M75.101 Unspecified rotator cuff tear or rupture of right shoulder, not specified as traumatic; M75.41 Impingement syndrome of right shoulder; M19.011 Primary osteoarthritis, right shoulder; G89.18 Other acute postprocedural pain; I12.9 Hypertensive chronic kidney disease with stage 1 through stage 4 chronic kidney disease, or unspecified chronic kidney disease; E11.22 Type 2 diabetes mellitus with diabetic chronic kidney disease; N18.30 Chronic kidney disease, stage 3 unspecified; E78.5 Hyperlipidemia, unspecified; E03.9 Hypothyroidism, unspecified; K21.9 Gastro-esophageal reflux disease without esophagitis; G43.909 Migraine, unspecified, not intractable, without status migrainosus; Z79.84 Long term (current) use of oral hypoglycemic drugs; Z79.890 Hormone replacement therapy; Z79.899 Other long term (current) drug therapy; Z98.890 Other specified postprocedural states; X58.XXXA Exposure to other specified factors, initial encounter
CPT/HCPCS: 29828; 29827; 29826; 29824; 64415; C1713 ×4; J2250; J0330; J1100; J0690; J2405; J2001; J3010; J2795; J1885; J2704

== ENCOUNTER → 2023-11-13 | Outpatient (CLI) | payer BC ==
[2023-11-13 18:04] LABS: % Iron Saturation 16.47 (12.00-45.00); Glucose 96 mg/dL (70-110); Iron 56 UG/DL (50-170); Magnesium 2.1 mg/dL (1.5-2.4); Phosphorus 3.7 mg/dL (2.4-5.1); Potassium 4.9 mmol/L (3.5-5.5); Sodium 136 mmol/L (135-145); Total Iron Binding Capacity 340 UG/DL (228-460); Uric Acid 3.4 mg/dL (2.9-7.7)
[2023-11-13 18:05] LABS: ALT 23 U/L (8-44); AST 22 U/L (13-35); Albumin 4.3 g/dL (3.8-4.9); Albumin/Globulin Ratio 1.59 Ratio (1.60-3.17); Alkaline Phosphatase 124 U/L (41-126); BUN/Creat Ratio 16.38 Ratio (12.00-20.00); Blood Urea Nitrogen 21.3 mg/dL (9.0-27.0); Carbon Dioxide 26.2 mmol/L (21.6-31.8); Chloride 100 mmol/L (96-109); Ferritin 84.2 ng/mL (10.0-291.0); Globulin 2.7 g/dL (1.6-3.3); Total Bilirubin 0.4 mg/dL (0.3-1.2)
[2023-11-13 19:41] LABS: HCT 39.1 % (37.2-46.3); HGB 12.2 g/dL (12.0-15.0); MCH 30.8 pg (27.0-32.0); MCHC 31.2 g/dL (32.0-37.0); MCV 98.7 FL (80.0-97.0); Mean Platelet Volume 9.5 FL (9.5-12.2); NRBC Per 100 WBC 0 X 10*3/uL (0.00-0.01); Platelet Count 233 X 10*3/uL (140-440); RBC 3.96 X 10*6/uL (4.10-5.20); RDW 13.6 % (11.5-14.5); WBC 7.46 X 10*3/uL (4.50-10.00)
[2023-11-13 22:52] LABS: Appearance,Urine Cloudy (Clear); Bacteria,Urine 3+ (None Seen); Bilirubin,Urine Negative (Negative); Blood,Urine Negative (Negative); Color,Urine Yellow (Yellow); Ketones,Urine Trace (Negative); Nitrite,Urine Negative (Negative); Specific Gravity,Urine >1.035 (1.001-1.030); Urobilinogen,Urine 0.2
== END | disposition home or self-care (01) ==
LOC: LABWHC1 11:38
PROVIDERS: ATTEND Internal Medicine
DX: E55.9 Vitamin D deficiency, unspecified (principal); N18.31 Chronic kidney disease, stage 3a; D63.1 Anemia in chronic kidney disease; N39.0 Urinary tract infection, site not specified; N25.81 Secondary hyperparathyroidism of renal origin; M10.9 Gout, unspecified; R80.9 Proteinuria, unspecified
CPT/HCPCS: 36415; 80053; 81001; 82043; 82306; 82570; 82728; 83540; 83550; 83735; 83970; 84100; 84550; 85027

== ENCOUNTER → 2024-03-14 | Outpatient (CLI) | payer BC ==
[2024-03-14 15:41] LABS: Basophils # (A) 0.03 X 10*3/uL (0.00-0.10); Basophils % (A) 0.4 %; Eosinophils # (A) 0.12 X 10*3/uL (0.04-0.35); Eosinophils % (A) 1.4 %; HCT 40.1 % (37.2-46.3); HGB 12.7 g/dL (12.0-15.0); Lymphocytes # (A) 1.94 X 10*3/uL (0.90-5.00); Lymphocytes % (A) 23.4 %; MCHC 31.7 g/dL (32.0-37.0); MCV 94.8 FL (80.0-97.0); Mean Platelet Volume 9.7 FL (9.5-12.2); Monocytes # (A) 0.44 X 10*3/uL (0.20-1.00); Monocytes % (A) 5.3 %; NRBC Per 100 WBC 0 X 10*3/uL (0.00-0.01); Neutrophils # (A) 5.72 X 10*3/uL (1.80-7.70); Neutrophils % (A) 69.1 %; Platelet Count 212 X 10*3/uL (140-440); RBC 4.23 X 10*6/uL (4.10-5.20); RDW 13.4 % (11.5-14.5); WBC 8.28 X 10*3/uL (4.50-10.00)
[2024-03-14 16:13] LABS: % Iron Saturation 15.26 (12.00-45.00); ALT 21 U/L (8-44); AST 22 U/L (13-35); Albumin 4.6 g/dL (3.8-4.9); Alkaline Phosphatase 134 U/L (41-126); BUN/Creat Ratio 19.08 Ratio (12.00-20.00); Blood Urea Nitrogen 22.9 mg/dL (9.0-27.0); Calcium 9.9 mg/dL (8.7-10.3); Carbon Dioxide 26.4 mmol/L (21.6-31.8); Chloride 103 mmol/L (96-109); Globulin 2.7 g/dL (1.6-3.3); Glucose 76 mg/dL (70-110); Iron 56 UG/DL (50-170); Magnesium 2.2 mg/dL (1.5-2.4); Phosphorus 3.6 mg/dL (2.4-5.1); Sodium 140 mmol/L (135-145); Total Bilirubin 0.3 mg/dL (0.3-1.2); Total Iron Binding Capacity 367 UG/DL (228-460); Total Protein 7.3 g/dL (6.2-8.2); Uric Acid 3.4 mg/dL (2.9-7.7)
[2024-03-14 16:15] LABS: Appearance,Urine Clear (Clear); Bacteria,Urine Few /hpf; Bilirubin,Urine Negative (Negative); Blood,Urine Negative (Negative); Color,Urine Yellow; Glucose,Urine (UA) 4+ (Negative); Ketones,Urine Negative (Negative); Leukocyte Esterase,Urine Moderate (Negative); Mucus,Urine Occasional /hpf; Nitrite,Urine Positive (Negative); Protein,Urine Negative (Negative); RBC,Urine 2 /hpf (0-5); Specific Gravity,Urine 1.029 (1.001-1.035); Squamous Epithelial Cell,Urine <1 /hpf (0-4); Urobilinogen,Urine <2.0 mg/dL (<2.0); WBC,Urine 15 /hpf (0-5)
[2024-03-14 22:54] LABS: Total Protein,Urine Random 19.2 mg/dL (0.0-13.5)
== END | disposition home or self-care (01) ==
LOC: LABWHC1 10:53
PROVIDERS: ATTEND Internal Medicine
DX: I12.9 Hypertensive chronic kidney disease with stage 1 through stage 4 chronic kidney disease, or unspecified chronic kidney disease (principal); E11.22 Type 2 diabetes mellitus with diabetic chronic kidney disease; E03.9 Hypothyroidism, unspecified; N18.2 Chronic kidney disease, stage 2 (mild)
CPT/HCPCS: 36415; 80053; 81001; 82043; 82306; 82570; 82728; 83036; 83540; 83550; 83735; 83970; 84100; 84156; 84166; 84443; 84550; 85025; 87086

== ENCOUNTER → 2024-03-14 | Outpatient (CLI) | payer BC ==
--- NOTE | 2024-03-16 18:03 | US ---
EXAMINATION TYPE: US kidneys/renal and bladder DATE OF EXAM: 03/14/2024 COMPARISON: Renal ultrasound 09/08/2022 CLINICAL INDICATION: Female, 58 years old with history of N18.31 CHRONIC KIDNEY DISEASE, STAGE 3A; EXAM MEASUREMENTS: Right Kidney: 9.2 x 4.2 x 3.9 cm Left Kidney: 9.8 x 4.9 x 4.7 cm Technical limitations due to large amount of overlying bowel gas Right Kidney: limited evaluation. possible stone = 0.5cm Left Kidney: no evidence of hydronephrosis Bladder: appears wnl Bilateral Jets seen: no There is no evidence for hydronephrosis at this point in time. No left nephrolithiasis. Possible ech ogenic calculus versus echogenic fat in the right kidney. No solid masses are identified. Corticomedu llary differentiation is maintained bilaterally. Mild cortical thinning bilaterally. The urinary blad chris is anechoic and underdistended. Bilateral ureteral jets are not seen. IMPRESSION: Limited examination due to large amount of overlying bowel gas. 1. No hydronephrosis. Possible nonobstructive right renal calculus versus echogenic fat. 2. Mild cortical thinning bilaterally suggesting chronic medical renal disease.
== END | disposition home or self-care (01) ==
LOC: RADUSWWP 13:13
PROVIDERS: ATTEND Internal Medicine
DX: N18.31 Chronic kidney disease, stage 3a (principal)
CPT/HCPCS: 76770

== ENCOUNTER → 2024-04-04 | Outpatient (CLI) | payer BC ==
--- NOTE | 2024-04-05 16:54 | XR ---
EXAMINATION TYPE: XR foot complete RT DATE OF EXAM: 04/04/2024 COMPARISON: Three-view right foot HISTORY: Pain TECHNIQUE: 3 view right foot FINDINGS: No acute fractures or dislocations evident. There is deformity of the distal fourth and fif th digits are present. Joint spaces appear preserved. Large Achilles small plantar calcaneal heel spu r is present. Soft tissues are normal. Follow up exams can be performed 7-10 days from acute trauma for continued pain IMPRESSION: 1. No acute osseous abnormality right foot.
== END | disposition home or self-care (01) ==
LOC: RADXRMAIN 09:53
PROVIDERS: ATTEND Internal Medicine
DX: M79.671 Pain in right foot (principal)

== ENCOUNTER → 2024-04-04 | Outpatient (CLI) | payer BC ==
[2024-04-04 10:00] LABS: HCT 40.4 % (34.0-46.0); HGB 12.9 gm/dL (11.4-16.0); MCV 96.9 fL (80.0-100.0); Mean Platelet Volume 7.9; Platelet Count 192 k/uL (150-450); RBC 4.17 m/uL (3.80-5.40); RDW 13.5 % (11.5-15.5); WBC 6.4 k/uL (3.8-10.6)
[2024-04-04 10:22] LABS: ALT 18 U/L (4-34); AST 24 U/L (14-36); African American GFR (CKD) 61 (>60 ml/min/1.73 sqM); Albumin 4.3 g/dL (3.5-5.0); Alkaline Phosphatase 145 U/L (38-126); Anion Gap 7 mmol/L; Blood Urea Nitrogen 26 mg/dL (7-17); Calcium 9.4 mg/dL (8.4-10.2); Carbon Dioxide 27 mmol/L (22-30); Chloride 106 mmol/L (98-107); Glucose 163 mg/dL (74-99); Non-African American GFR(CKD) 53 (>60 ml/min/1.73 sqM); Phosphorus 4.2 mg/dL (2.5-4.5); Potassium 4.9 mmol/L (3.5-5.1); Sodium 140 mmol/L (137-145); Total Bilirubin 0.4 mg/dL (0.2-1.3); Uric Acid 3.3 mg/dL (3.7-7.4)
[2024-04-04 15:23] LABS: Bacteria,Urine 3+ (None Seen)
[2024-04-04 15:42] LABS: % Iron Saturation 13.51 (12.00-45.00); Ferritin 45.6 ng/mL (10.0-291.0); Iron 50 UG/DL (50-170); Total Iron Binding Capacity 370 UG/DL (228-460)
[2024-04-04 16:27] LABS: Appearance,Urine Clear (Clear); Bilirubin,Urine Negative (Negative); Blood,Urine Negative (Negative); Color,Urine Yellow (Yellow); Ketones,Urine Negative (Negative); Nitrite,Urine Positive (Negative); Specific Gravity,Urine 1.031 (1.001-1.030); Urobilinogen,Urine 0.2
--- NOTE | 2024-04-08 15:37 | BD ---
EXAMINATION TYPE: Axial Bone Density DATE OF EXAM: 04/04/2024 CLINICAL HISTORY: 58 years old Female. ICD-10 CODE: M81.0 AGE RELATED OSTEOPOROSIS Height: 63" Weight: 199.7lbs FRAX RISK QUESTIONS: Alcohol (3 or more units per day): No Family History (Parent hip fracture): No Glucocorticoids (More than 3mos): No (Ex: prednisone, prednisolone, methylprednisolone, dexamethasone, and hydrocortisone). History of Fracture in Adulthood: No Secondary Osteoporosis: 1. Type 1 Diabetes: No 2. Hyperthyroidism: No 3. Menopause before 45: Unknown 4. Malnutrition: No 5. Chronic liver disease: No Rheumatoid Arthritis: No Current Tobacco Use: No RISK FACTORS HISTORY OF: Hip Fracture (Right/Left): No Spine Fracture: No History of Wrist Fracture: No Surgery to Spine/Hip(right/left)/Wrist (right/left): No MEDICATIONS: Thyroid Medications: Yes Which medication: Levothyroxine How Lon years Osteoporosis Medications: No Patient has known kidney disease, Stage 3 EXAM MEASUREMENTS: Bone mineral densitometry was performed using the OneTouch System. Bone mineral density as measured about the Lumbar spine is: ----- L1-L4(G/cm2): 1.223 T Score Values are as follows: ----- L1: 1.1 ----- L2: 0.5 ----- L3: 0.5 ----- L4: -0.5 ----- L1-L4: 0.4 Z Score Values are as follows: ----- L1: 1.5 ----- L2: 0.9 ----- L3: 0.9 ----- L4: -0.1 ----- L1-L4: 0.8 Baseline @MPH Bone mineral density about the R hip (g/cm2): 0.913 Bone mineral density about the L hip (g/cm2): 0.949 T Score values are as follows: -----R Neck: -1.6 -----L Neck: -1.7 -----R Total: -0.8 -----L Total: -0.5 Z Score values are as follows: -----R Neck: -0.9 -----L Neck: -0.9 -----R Total: -0.4 -----L Total: -0.1 Baseline @MPH FRAX%s: The graph provided illustrates a 8.1% chance for a major osteoporotic fx and a 0.8% chance fo r the hips probability for fx in 10 years time. IMPRESSION: Osteopenia (T Score between -2.5 and -1). There is slightly increased risk of fracture and the patient may be considered for treatment. Re-Screen 2-5 years. NOTE: T-SCORE=SD OF THE YOUNG ADULT MEAN.
== END | disposition home or self-care (01) ==
LOC: RADBDWWP 09:16
PROVIDERS: ATTEND Internal Medicine
DX: M85.88 Other specified disorders of bone density and structure, other site (principal); Z78.0 Asymptomatic menopausal state
CPT/HCPCS: 36415; 77080; 80053; 81001; 82306; 82728; 83540; 83550; 83735; 83970; 84100; 84550; 85027

== ENCOUNTER 2024-04-21 08:12 | Day surgery (SDC) | payer BC ==
--- NOTE | 2024-04-20 11:41 | HP ---
HISTORY AND PHYSICAL DATE OF SCHEDULED SURGERY: 04/21/2024. HISTORY OF PRESENT ILLNESS: Jenni Landry is a 59-year-old patient, seen with persistent right shoulder adhesive capsulitis with history of previous arthroscopy. After having treatment options discussed, she elected to proceed with manipulation under anesthesia, right shoulder steroid injection. Consent was obtained. PAST MEDICAL HISTORY: Hypertension, hyperlipidemia, oeh-yaooony-wjbduwlel diabetes, hypothyroidism, gastroesophageal reflux disease. PAST SURGICAL HISTORY: Shoulder arthroscopy, herniorrhaphy. DAILY MEDICATIONS: 1. Amlodipine. 2. Aspirin. 3. Atorvastatin. 4. Glipizide. 5. Levothyroxine. 6. Omeprazole. 7. Tylenol. ALLERGIES: None. SOCIAL HISTORY: She denies tobacco use. PHYSICAL EVALUATION OF RIGHT SHOULDER: She has well-healed arthroscopic portal sites. Flexion is 100 degrees. Abduction is 90 degrees. External rotation is 10 degrees with good strength. Distal neurovascular exam is intact. IMAGING: Right shoulder radiographs reveal stable conversion to a flat anterior acromion. IMPRESSION: 1. Right shoulder adhesive capsulitis. 2. History of right shoulder arthroscopy. 3. Hypertension. 4. Hyperlipidemia. 5. Hypothyroidism. 6. Gastroesophageal reflux disease. PLAN: Manipulation under anesthesia right shoulder with steroid injection. MMODL / IJN: [id number] /
[~2024-04-21 08:12] MED LIST changes: -DEXAMETHASONE SOD PHOSPHATE 10 MG/ML 1 ML VIAL IV ONE; -GENTAMICIN 120 MG in SODIUM CHLORIDE 0.9% 100 ML IVPB ONE; -HYDROmorphone 0.5 MG/0.5 ML SYRINGE IVP PRN; -IOPAMIDOL-370 50ML BTL MISCELLANE ONE; -LACTATED RINGERS 1,000 ML IV ONE; -LACTATED RINGERS 1,000 ML IV SCH; +LIDOCAINE 1% (10MG/ML) FOR IV START INTRADERMA PRN; +METOCLOPRAMIDE 5 MG/ML 2 ML VIAL IVP PRN; +MIDAZOLAM 2 MG/2 ML VIAL IV PRN; -MIDAZOLAM 2 MG/2 ML VIAL ONE; -ONDANSETRON 4 MG/2 ML VIAL IVP ONE; -ONDANSETRON 4 MG/2 ML VIAL ONE; -PROPOFOL 10 MG/ML 20 ML VIAL IV ONE; -SCOPOLAMINE 1.5MG/72HR PATCH TRANSDERM ONE; -fentaNYL (PF) 50 MCG/ML 2 ML AMP ONE
[2024-04-21 08:44] VITALS: TEMP 97
[2024-04-21 08:53] LABS: Glucose,Whole Blood 82 mg/dL (70-110)
[2024-04-21] MEDS: DEXAMETHASONE SOD PHOSPHATE 4 MG/ML 1 ML VIAL IV ONE (08:55)
[2024-04-21] MEDS: ONDANSETRON 4 MG/2 ML VIAL IVP ONE (08:55)
[2024-04-21] MEDS: LACTATED RINGERS 1,000 ML IV SCH (08:55)
[2024-04-21] MEDS: IV FLUID CONTINUATION 1,000 ML IV ONE (09:01)
[2024-04-21] MEDS ORDERED: PROPOFOL 10 MG/ML 20 ML VIAL IV ONE (09:59)
[2024-04-21] MEDS ORDERED: fentaNYL (PF) 50 MCG/ML 2 ML AMP ONE (09:59)
--- NOTE | 2024-04-21 10:08 | P.OP ---
Date of Procedure: 04/21/24 Preoperative Diagnosis: Right shoulder adhesive capsulitis Postoperative Diagnosis: Right shoulder adhesive capsulitis Procedure(s) Performed: Manipulation under anesthesia right shoulder with steroid injection Anesthesia: MAC Surgeon: Christopher Palmer Estimated Blood Loss (ml): 0 Pathology: none sent Condition: stable Disposition: PACU Indications for Procedure: 59-year-old patient seen with persistent right shoulder adhesive capsulitis. After having treatment options discussed, she elected to proceed with manipulation under anesthesia right shoulder with steroid injection. Operative Findings: See description of procedure Description of Procedure: Patient was taken to a monitored anesthesia area. She underwent IV sedation by the department of anesthesia. Once sufficient adequate anesthesia was noted I performed a manipulation of the right shoulder achieving near full range of motion with audible tearing of the adhesions. The anterior aspect the shoulder was prepped and draped in normal sterile fashion. I injected a solution of 1 cc Depo-Medrol, 1 cc quarter percent plain Marcaine and 1% plain lidocaine intra- articular under sterile technique. A sterile Band-Aid was applied. The shoulder was taken through range of motion. The patient was awakened having tolerated procedure well.
[2024-04-21] MEDS: HYDROmorphone 0.5 MG/0.5 ML SYRINGE IVP PRN (10:19)
[2024-04-21] MEDS: KETOROLAC 15 MG/ML 1 ML VIAL IVP STA (10:33)
[2024-04-21 11:05] VITALS: RESP 16
[2024-04-21] MEDS: HYDROcodone/APAP 5-325MG 1 EACH TAB PO STA (11:07)
[2024-04-21 11:09] VITALS: BP 122/74; PULSE 75
== END 2024-04-21 11:37 | disposition home or self-care (01) ==
LOC: OR 08:12
PROVIDERS: ATTEND Orthopaedic Surgery
DX: M75.01 Adhesive capsulitis of right shoulder (principal); K21.9 Gastro-esophageal reflux disease without esophagitis; I10 Essential (primary) hypertension; E78.5 Hyperlipidemia, unspecified; E11.9 Type 2 diabetes mellitus without complications; E03.9 Hypothyroidism, unspecified; Z79.82 Long term (current) use of aspirin; Z79.899 Other long term (current) drug therapy; Z79.84 Long term (current) use of oral hypoglycemic drugs; Z79.890 Hormone replacement therapy
CPT/HCPCS: 23700; J1100; J2405; J3010; J1885; J2704; J1170

== ENCOUNTER → 2024-07-07 | Outpatient (CLI) | payer BC ==
--- NOTE | 2024-07-07 13:02 | XR ---
EXAMINATION TYPE: XR chest 2V DATE OF EXAM: 07/07/2024 COMPARISON: 04/14/2020 INDICATION: Pneumonia cough x2 weeks TECHNIQUE: Frontal and lateral views of the chest are obtained. FINDINGS: The heart size is normal. The pulmonary vasculature is normal. Some extremely subtle linear opacities overlying the left peripheral chest could be some mild atelect asis. Lungs otherwise appear clear. No suspicious consolidations evident.. IMPRESSION: 1. There may be some minimal residual atelectasis or infiltrate in the peripheral left midlung. [facility], , 07/07/2024 1:00 PM
== END | disposition home or self-care (01) ==
LOC: RADXRMAIN 12:35
PROVIDERS: ATTEND Internal Medicine
DX: J18.9 Pneumonia, unspecified organism (principal)
CPT/HCPCS: 71046

== ENCOUNTER → 2024-08-01 | Outpatient (CLI) | payer BC ==
--- NOTE | 2024-08-05 09:51 | MM ---
Reason for Exam: Screening (asymptomatic). Last screening mammogram was performed 12 month(s) ago. Patient History: Menarche at age 10. First Full-Term at age 18. Postmenopausal. Hormonal Contraceptives, from age 16 until age 48. 09/22/2014, Benign Core Biopsy on the right side. 12/29/2009, Benign Core Biopsy on the left side. Maternal cousin had breast cancer, age 45. Maternal cousin had breast cancer. Maternal aunt had breast cancer, age 55. Risk Values: Aishwarya 5 year model risk: 2.0%. NCI Lifetime model risk: 9.5%. Prior Study Comparison: 07/01/2021 Bilateral Diagnostic Mammogram, [facility]. 07/07/2022 Bilateral MG screening mammo w CAD, [facility]. 07/20/2023 Bilateral MG screening mammo w CAD, [facility]. Tissue Density: There are scattered areas of fibroglandular density. Findings: Analyzed By CAD. There is no suspicious group of microcalcifications or new suspicious mass in either breast. Overall Assessment: Negative, BI-RAD 1 Management: Screening Mammogram of both breasts in 1 year. . Patient should continue monthly self-breast exams. A clinical breast exam by your physician is recommended on an annual basis. This exam should not preclude additional follow-up of suspicious palpable abnormalities. Note on Aishwarya scores and lifetime risk: 1. A Aishwarya score greater than 3% is considered moderate risk. If this is the case, consider specialist referral to assess eligibility for a risk reducing agent. 2. If overall lifetime risk for the development of breast cancer is 20% or higher, the patient may qualify for future screening with alternating mammogram and breast MRI. [facility], , 08/05/2024 9:47 AM. Electronically signed and approved by: Russ Craig M.D. Radiologis
== END | disposition home or self-care (01) ==
LOC: RADMAMWWP 10:02
PROVIDERS: ATTEND Internal Medicine
DX: Z12.31 Encounter for screening mammogram for malignant neoplasm of breast
CPT/HCPCS: 77067

== ENCOUNTER → 2024-12-09 | Outpatient (CLI) | payer BC ==
[2024-12-09 19:25] LABS: Basophils # (A) 0.02 X 10*3/uL (0.00-0.10); Basophils % (A) 0.3 %; Eosinophils % (A) 1.5 %; HCT 40.9 % (37.2-46.3); Lymphocytes # (A) 2.02 X 10*3/uL (0.90-5.00); Lymphocytes % (A) 29.3 %; MCH 30.7 pg (27.0-32.0); MCHC 31.8 g/dL (32.0-37.0); MCV 96.5 FL (80.0-97.0); Mean Platelet Volume 9.5 FL (9.5-12.2); Monocytes % (A) 4.4 %; NRBC Per 100 WBC 0 X 10*3/uL (0.00-0.01); Neutrophils # (A) 4.43 X 10*3/uL (1.80-7.70); Neutrophils % (A) 64.2 %; Platelet Count 240 X 10*3/uL (140-440); RBC 4.24 X 10*6/uL (4.10-5.20); RDW 13.7 % (11.5-14.5); WBC 6.89 X 10*3/uL (4.50-10.00)
[2024-12-09 19:48] LABS: % Iron Saturation 23.88 (12.00-45.00); ALT 25 U/L (8-44); AST 27 U/L (13-35); Albumin 4.5 g/dL (3.8-4.9); Albumin/Globulin Ratio 1.55 Ratio (1.60-3.17); Alkaline Phosphatase 129 U/L (41-126); Blood Urea Nitrogen 19.2 mg/dL (9.0-27.0); Calcium 10.4 mg/dL (8.7-10.3); Carbon Dioxide 27.4 mmol/L (21.6-31.8); Chloride 102 mmol/L (96-109); Ferritin 85.2 ng/mL (10.0-291.0); Globulin 2.9 g/dL (1.6-3.3); Glucose 112 mg/dL (70-110); Iron 85 UG/DL (50-170); Phosphorus 3.8 mg/dL (2.4-5.1); Potassium 4.2 mmol/L (3.5-5.5); Sodium 141 mmol/L (135-145); Total Bilirubin 0.3 mg/dL (0.3-1.2); Total Iron Binding Capacity 356 UG/DL (228-460); Total Protein 7.4 g/dL (6.2-8.2)
[2024-12-10 16:16] LABS: Free Kappa Lt Chain Qnt, Serum 2.48 mg/dL (0.33-1.94); Free Lambda Lt Chain Qnt, Seru 1.79 mg/dL (0.57-2.63)
== END | disposition home or self-care (01) ==
LOC: LABWHC1 14:19
PROVIDERS: ATTEND Internal Medicine
DX: N18.31 Chronic kidney disease, stage 3a (principal)
CPT/HCPCS: 36415; 80053; 82306; 82728; 83540; 83550; 83735; 83883; 83970; 84100; 84550; 85025; 86334

== ENCOUNTER → 2024-12-12 | Outpatient (CLI) | payer BC ==
--- NOTE | 2024-12-12 10:00 | US ---
EXAMINATION TYPE: US kidneys/renal and bladder DATE OF EXAM: 12/12/2024 COMPARISON: 03/14/24 CLINICAL INDICATION: Female, 59 years old with history of N18.31 CKD STAGE 3A; CKD TECHNIQUE: Grayscale imaging of the bilateral kidneys and urinary bladder: FINDINGS: EXAM MEASUREMENTS: Right Kidney: 8.7 x 4.6 x 4.4 cm Left Kidney: 9.6 x 4.9 x 5.1 cm Right Kidney: 0.7cm shadowing focus, cortical thinning Left Kidney: cortical thinning Bladder: wnl There is no evidence for hydronephrosis at this point in time. No masses are identified. The urinar y bladder is anechoic. Posterior wall is normal. exam limited by bowel and habitus. Perinephric sweat sign bilaterally can be associated with renal failure. Correlate with laboratory re sults IMPRESSION: 1. Nonobstructing renal stone mid right kidney. 2. Bilateral perinephric sweat sign, correlate with laboratory results for renal failure. [facility], , 12/12/2024 9:57 AM
== END | disposition home or self-care (01) ==
LOC: RADUSWWP 09:07
PROVIDERS: ATTEND Internal Medicine
DX: N20.0 Calculus of kidney (principal); N18.31 Chronic kidney disease, stage 3a
CPT/HCPCS: 76770

== ENCOUNTER → 2025-01-02 | Outpatient (CLI) | payer BC ==
[2025-01-02 14:57] LABS: Basophils # (A) 0.02 X 10*3/uL (0.00-0.10); Basophils % (A) 0.4 %; Eosinophils % (A) 1.8 %; HCT 40.6 % (37.2-46.3); Lymphocytes # (A) 1.88 X 10*3/uL (0.90-5.00); Lymphocytes % (A) 33.1 %; MCH 31.2 pg (27.0-32.0); MCV 97.4 FL (80.0-97.0); Mean Platelet Volume 9.5 FL (9.5-12.2); Monocytes # (A) 0.33 X 10*3/uL (0.20-1.00); Monocytes % (A) 5.8 %; NRBC Per 100 WBC 0 X 10*3/uL (0.00-0.01); Neutrophils # (A) 3.33 X 10*3/uL (1.80-7.70); Neutrophils % (A) 58.5 %; Platelet Count 216 X 10*3/uL (140-440); RBC 4.17 X 10*6/uL (4.10-5.20); RDW 13.8 % (11.5-14.5); WBC 5.68 X 10*3/uL (4.50-10.00)
[2025-01-02 15:40] LABS: ALT 23 U/L (8-44); AST 25 U/L (13-35); Albumin 4.4 g/dL (3.8-4.9); Albumin/Globulin Ratio 1.52 Ratio (1.60-3.17); Alkaline Phosphatase 132 U/L (41-126); Blood Urea Nitrogen 23.4 mg/dL (9.0-27.0); Calcium 9.6 mg/dL (8.7-10.3); Carbon Dioxide 25.2 mmol/L (21.6-31.8); Chloride 104 mmol/L (96-109); Chol/HDL Ratio 2.51 Ratio; Globulin 2.9 g/dL (1.6-3.3); Glucose 97 mg/dL (70-110); LDL Cholesterol,Calculated 61.3 mg/dL (0.0-131.0); Magnesium 2.1 mg/dL (1.5-2.4); Potassium 4.3 mmol/L (3.5-5.5); Sodium 140 mmol/L (135-145); Total Bilirubin 0.3 mg/dL (0.3-1.2); Total Protein 7.3 g/dL (6.2-8.2); Uric Acid 3.3 mg/dL (2.9-7.7); VLDL Calculation 18.22 mg/dL (5.00-40.00)
[2025-01-02 18:27] LABS: Appearance,Urine Clear (Clear); Bilirubin,Urine Negative (Negative); Blood,Urine Negative (Negative); Color,Urine Yellow (Yellow); Ketones,Urine Negative (Negative); Nitrite,Urine Negative (Negative); Specific Gravity,Urine 1.033 (1.001-1.030); Urobilinogen,Urine 0.2
[2025-01-02 18:29] LABS: Microalbumin Creatinine Ratio <8 mg/g Cr (0-30)
== END | disposition home or self-care (01) ==
LOC: LABWHC1 11:15
PROVIDERS: ATTEND Internal Medicine
DX: I12.9 Hypertensive chronic kidney disease with stage 1 through stage 4 chronic kidney disease, or unspecified chronic kidney disease (principal); E78.2 Mixed hyperlipidemia; E11.22 Type 2 diabetes mellitus with diabetic chronic kidney disease; M11.9 Crystal arthropathy, unspecified; E03.9 Hypothyroidism, unspecified; M81.0 Age-related osteoporosis without current pathological fracture; N18.31 Chronic kidney disease, stage 3a
CPT/HCPCS: 36415; 80053; 80061; 81003; 82043; 82306; 82570; 83036; 83735; 84439; 84443; 84550; 85025

== ENCOUNTER → 2025-01-14 | Outpatient (CLI) | payer BC ==
[2025-01-14 14:59] LABS: HCT 42.3 % (37.2-46.3); HGB 13.3 g/dL (12.0-15.0); MCH 30.9 pg (27.0-32.0); MCHC 31.4 g/dL (32.0-37.0); MCV 98.1 FL (80.0-97.0); Mean Platelet Volume 9.3 FL (9.5-12.2); NRBC Per 100 WBC 0 X 10*3/uL (0.00-0.01); Platelet Count 222 X 10*3/uL (140-440); RBC 4.31 X 10*6/uL (4.10-5.20); RDW 13.5 % (11.5-14.5); WBC 6.21 X 10*3/uL (4.50-10.00)
[2025-01-14 15:31] LABS: % Iron Saturation 13.76 (12.00-45.00); ALT 25 U/L (8-44); AST 28 U/L (13-35); Albumin 4.5 g/dL (3.8-4.9); Alkaline Phosphatase 144 U/L (41-126); BUN/Creat Ratio 20.33 Ratio (12.00-20.00); Blood Urea Nitrogen 24.4 mg/dL (9.0-27.0); Calcium 9.5 mg/dL (8.7-10.3); Carbon Dioxide 24.9 mmol/L (21.6-31.8); Chloride 103 mmol/L (96-109); Ferritin 67.8 ng/mL (10.0-291.0); Glucose 96 mg/dL (70-110); Iron 52 UG/DL (50-170); Phosphorus 3.7 mg/dL (2.4-5.1); Potassium 4.3 mmol/L (3.5-5.5); Sodium 140 mmol/L (135-145); Total Bilirubin 0.3 mg/dL (0.3-1.2); Total Iron Binding Capacity 378 UG/DL (228-460); Total Protein 7.5 g/dL (6.2-8.2); Uric Acid 3.3 mg/dL (2.9-7.7)
[2025-01-14 17:02] LABS: Appearance,Urine Clear (Clear); Bilirubin,Urine Negative (Negative); Blood,Urine Negative (Negative); Color,Urine Yellow (Yellow); Ketones,Urine Negative (Negative); Nitrite,Urine Negative (Negative); Specific Gravity,Urine >1.035 (1.001-1.030); Urobilinogen,Urine 0.2
[2025-01-14 19:47] LABS: Microalbumin Creatinine Ratio <9 mg/g Cr (0-30)
[2025-01-15 12:51] LABS: Free Kappa Lt Chain Qnt, Serum 2.73 mg/dL (0.33-1.94); Free Lambda Lt Chain Qnt, Seru 1.82 mg/dL (0.57-2.63)
== END | disposition home or self-care (01) ==
LOC: LABWHC1 10:21
PROVIDERS: ATTEND Internal Medicine
DX: E55.9 Vitamin D deficiency, unspecified (principal); N18.31 Chronic kidney disease, stage 3a; D63.1 Anemia in chronic kidney disease; N39.0 Urinary tract infection, site not specified; N25.81 Secondary hyperparathyroidism of renal origin; M10.9 Gout, unspecified; R80.9 Proteinuria, unspecified
CPT/HCPCS: 36415; 80053; 81003; 82043; 82164; 82306; 82570; 82652; 82728; 83540; 83550; 83735; 83883; 83970; 84100; 84166; 84550; 85027; 86334

== ENCOUNTER 2025-02-01 15:38 | Emergency (ER) | payer BC ==
[2025-02-01 15:50] VITALS: RESP 18
[2025-02-01] MEDS: MORPHINE SULFATE 4 MG/ML SYRINGE IV STA (17:03)
[2025-02-01] MEDS: SODIUM CHLORIDE 0.9% 1,000 ML IV STA (17:04)
[2025-02-01 17:20] LABS: Basophils # (A) 0.02 10*3/uL (0.00-0.10); Basophils % (A) 0.2 %; Eosinophils # (A) 0.04 10*3/uL (0.04-0.35); Eosinophils % (A) 0.3 %; HCT 40.8 % (37.2-46.3); HGB 13.4 g/dL (12.0-15.0); Lymphocytes % (A) 8.1 %; MCH 31.7 pg (27.0-32.0); MCHC 32.8 g/dL (32.0-37.0); MCV 96.5 fL (80.0-97.0); Mean Platelet Volume 9.4 fL (9.5-12.2); Monocytes # (A) 0.56 10*3/uL (0.20-1.00); Monocytes % (A) 4.6 %; Neutrophils # (A) 10.65 10*3/uL (1.80-7.70); Neutrophils % (A) 86.6 %; Platelet Count 204 10*3/uL (140-440); RBC 4.23 10*6/uL (4.10-5.20); RDW 13.2 % (11.5-14.5)
[2025-02-01 17:22] LABS: Appearance,Urine Clear (Clear); Bilirubin,Urine Negative (Negative); Blood,Urine Negative (Negative); Color,Urine Colorless; Glucose,Urine (UA) 4+ (Negative); Ketones,Urine Negative (Negative); Leukocyte Esterase,Urine Negative (Negative); Nitrite,Urine Negative (Negative); Protein,Urine Negative (Negative); Specific Gravity,Urine 1.025 (1.001-1.035); Urobilinogen,Urine <2.0 mg/dL (<2.0)
--- NOTE | 2025-02-01 17:27 | CT ---
EXAMINATION TYPE: CT abdomen pelvis wo con DATE OF EXAM: 02/01/2025 5:18 PM COMPARISON: CT abdomen pelvis most recent from CLINICAL INDICATION: Female, 59 years old with history of abdominal pain; LLQ pain TECHNIQUE: Axial CT abdomen pelvis wo con;Sagittal and coronal reformats were created on a separate workstation. Contrast used: mL of , (none if empty) Oral contrast used: without Oral Contrast (none if empty) CT DLP: 818.7 mGycm, Automated exposure control for dose reduction was used. FINDINGS: LOWER CHEST: Unremarkable ABDOMEN LIVER: Unremarkable GALLBLADDER AND BILE DUCTS: Unremarkable. PANCREAS: Unremarkable. SPLEEN: Unremarkable. ADRENAL GLANDS: Unremarkable. KIDNEYS AND URETERS: No evidence of hydronephrosis or renal calculus. The ureters are unremarkable. PELVIS BLADDER: No evidence for wall thickening or mass given limitations of exam. REPRODUCTIVE: Unremarkable. ABDOMEN & PELVIS STOMACH AND BOWEL: Stomach and duodenum are unremarkable. There are colonic diverticula present, one of which has adjacent fat stranding changes in the region of the descending colon (series 3 image 81) . No organizing fluid collection or evidence of pneumoperitoneum. No evidence of bowel obstruction. S mall hiatal hernia. Moderate to large volume colonic stool burden. Small duodenal diverticulum. PERITONEUM/RETROPERITONEUM: No evidence of pneumoperitoneum or free fluid. VASCULATURE: No evidence of aortic aneurysm. MUSCULOSKELETAL: No acute osseous abnormalities LYMPH NODES: No gross evidence for lymphadenopathy. SOFT TISSUE/ABDOMINAL WALL: Small periumbilical and supraumbilical fat-containing hernias. IMPRESSION: Findings compatible with acute uncomplicated diverticulitis of the descending colon. [facility], , 02/01/2025 5:25 PM
[2025-02-01 17:36] LABS: ALT 20 U/L (4-34); AST 25 U/L (14-36); African American GFR (CKD) 65 (>60 ml/min/1.73 sqM); Albumin 4.5 g/dL (3.5-5.0); Alkaline Phosphatase 157 U/L (38-126); Amylase 51 U/L (30-110); Anion Gap 9 mmol/L; Blood Urea Nitrogen 26 mg/dL (7-17); Calcium 9.9 mg/dL (8.4-10.2); Carbon Dioxide 28 mmol/L (22-30); Chloride 102 mmol/L (98-107); Glucose 177 mg/dL (74-99); Lipase 95 U/L (23-300); Non-African American GFR(CKD) 57 (>60 ml/min/1.73 sqM); Potassium 4.5 mmol/L (3.5-5.1); Sodium 139 mmol/L (137-145); Total Bilirubin 0.5 mg/dL (0.2-1.3); Total Protein 7.5 g/dL (6.3-8.2)
--- NOTE | 2025-02-01 18:07 | ED ---
Abdominal Pain HPI - General Chief Complaint: Abdominal Pain Stated Complaint: Lower L Abd pain Time Seen by Provider: 02/01/25 15:57 Source: patient Mode of arrival: ambulatory Limitations: no limitations - History of Present Illness Initial Comments: This patient is a 59-year-old woman here to have evaluation of lower abdominal pain, more on the left, that she states woke her up around 6 AM. She describes pain as aching. She has not had associated fever, chills, nausea or vomiting. No change in urination or bowel movements noted MD Complaint: abdominal pain Onset/Timin -: hour(s) Location: LLQ Radiation: none Migration to: no migration Severity: moderate Quality: aching Consistency: constant Improves With: nothing Worsens With: nothing Associated Symptoms: denies other symptoms - Related Data Home Medications Medication Instructions Recorded Confirmed Atorvastatin [Lipitor] 10 mg PO HS 04/17/20 04/21/24 Aspirin 81 mg PO HS 04/20/20 04/21/24 Multivit with Calcium,Iron,Min 1 each PO DAILY 06/03/20 04/21/24 [Women's Multivitamin] Pioglitazone [Actos] 30 mg PO DAILY 06/03/20 04/21/24 Omeprazole [PriLOSEC] 20 mg PO AC-BRKFST 06/13/23 04/21/24 Phentermine HCl [Adipex-P] 37.5 mg PO DAILY 06/13/23 04/21/24 amLODIPine [Norvasc] 5 mg PO HS 06/13/23 04/21/24 Dapagliflozin Propanediol [Farxiga] 10 mg PO DAILY 11/01/23 04/21/24 Ergocalciferol [Vitamin D2 (1250 50,000 unit PO Q30D 11/01/23 04/21/24 Mcg = 34811 Iu)] Levothyroxine Sodium [Synthroid] 137 mcg PO DAILY 11/01/23 04/21/24 Tirzepatide [Mounjaro] 10 mg SQ PAINTER 11/01/23 04/21/24 glipiZIDE [Glucotrol] 10 mg PO BID 11/01/23 04/21/24 Otc Stool Softner 1 tab PO DAILY 04/15/24 04/21/24 Previous Rx's Medication Instructions Recorded HYDROcodone/APAP 5-325MG [On[place] 1 tab PO Q6HR PRN #18 tab 11/08/23 5-325] HYDROcodone/APAP 5-325MG [[place] 1 tab PO Q6HR PRN #18 tab 04/21/24 5-325] Amoxic-Pot Clav 875-125Mg 1 tab PO Q8H 1 Days #15 tab 02/01/25 [Augmentin 875-125] Allergies Allergy/AdvReac Type Severity Reaction Status Date / Time No Known Allergies Allergy Verified 02/01/25 15:50 Review of Systems ROS Statement: Those systems with pertinent positive or pertinent negative responses have been documented in the HPI. ROS Other: All systems not noted in ROS Statement are negative. Constitutional: Denies: fever, chills, weakness Respiratory: Denies: cough, dyspnea, wheezes Cardiovascular: Denies: chest pain, palpitations, edema, syncope Gastrointestinal: Reports: abdominal pain. Denies: nausea, vomiting, diarrhea, constipation, melena, hematochezia Genitourinary: Denies: dysuria, hematuria Musculoskeletal: Denies: back pain Skin: Denies: rash Neurological: Denies: headache, weakness Past Medical History Past Medical History: Diabetes Mellitus, Hyperlipidemia, Thyroid Disorder Additional Past Medical History / Comment(s): NIDDM type II, hypothyroid, past migraines, bronchitis in past History of Any Multi-Drug Resistant Organisms: ESBL Date of last positivie culture/infection: 06/03/20 MDRO Source:: ESBL URINE Past Surgical History: Heart Catheterization, Hernia Repair Additional Past Surgical History / Comment(s): R inguinal hernia repair, colonoscopy-normal, 2015 cardiac cath-normal. kidney stones removed Past Anesthesia/Blood Transfusion Reactions: Postoperative Nausea & Vomiting (PONV) Past Psychological History: No Psychological Hx Reported Smoking Status: Never smoker - Past Family History Father Family Medical History: Coronary Artery Disease (CAD), Myocardial Infarction (AL) Additional Family Medical History / Comment(s): Pt does not know at what age father had AL. She states he of heart disease at the age of 62 yrs. Mother Family Medical History: Diabetes Mellitus Additional Family Medical History / Comment(s): Mother of sepsis. Brother(s) Family Medical History: Myocardial Infarction (AL) Additional Family Medical History / Comment(s): Brother had a AL at the age of 52 yrs. Sister(s) Family Medical History: Cancer, Myocardial Infarction (AL) Additional Family Medical History / Comment(s): RECTAL CANCER General Exam Limitations: no limitations General appearance: alert, in no apparent distress Head exam: Present: atraumatic, normocephalic Eye exam: Present: normal appearance ENT exam: Present: normal oropharynx Neck exam: Present: normal inspection Respiratory exam: Present: normal lung sounds bilaterally. Absent: respiratory distress, wheezes, rales, rhonchi, stridor, accessory muscle use Cardiovascular Exam: Present: regular rate, normal rhythm, normal heart sounds. Absent: systolic murmur, diastolic murmur, rubs, gallop GI/Abdominal exam: Present: soft, tenderness (Left lower quadrant with moderate tenderness, no rebound or guarding). Absent: distended, guarding, rebound, rigid, mass, pulsatile mass, hernia Extremities exam: Present: normal inspection, normal capillary refill. Absent: pedal edema, calf tenderness Back exam: Present: normal inspection. Absent: CVA tenderness (R), CVA tenderness (L) Neurological exam: Present: alert Skin exam: Present: warm, dry, intact, normal color. Absent: rash Course Vital Signs 02/01/25 02/01/25 02/01/25 15:47 18:59 20:31 Temperature 98.2 F 98.0 F Pulse Rate 93 105 H 90 Respiratory 18 18 18 Rate Blood Pressure 147/102 105/44 109/49 O2 Sat by Pulse 99 96 96 Oximetry Medical Decision Making - Medical Decision Making Patient had CT scan of the abdomen and pelvis that I interpreted as showing presence of diverticulitis of the colon. No free air or obstruction. Was pt. sent in by a medical professional or institution (, PA, RECEPTION CENTRE MANAGER, urgent care, hospital, or assisted...) When possible be specific @ -[No] Did you speak to anyone other than the patient for history (EMS, parent, family, police, friend...)? What history was obtained from this source @ -[No] Did you review nursing and triage notes (agree or disagree)? Why? @ -[I reviewed and agree with nursing and triage notes] Were old charts reviewed (outside hosp., previous admission, EMS record, old EKG, old radiological studies, urgent care reports/EKG's, assisted records)? Report findings @ -[No old charts were reviewed] Differential Diagnosis (chest pain, altered mental status, abdominal pain women, abdominal pain men, vaginal bleeding, weakness, fever, dyspnea, syncope, he adache, dizziness, GI bleed, back pain, seizure, CVA, palpatations, mental health, musculoskeletal)? @ -[Differential Abdominal Pain Women: Appendicitis, Cholecystitis, diverticulosis, ischemic bowel, pancreatitis, hepatitis, UTI, gastroenteritis, AAA, incarcerated hernia, bowel obstruction, constipation, inflammatory bowel, hepatitis, peptic ulcer disease, splenic infarction, perforated viscus, vulvitis, ovarian torsion, PID, kidney stone, placenta abruption, this is not meant to be an all-inclusive list EKG interpreted by me (3pts min.). @ -[As above] X-rays interpreted by me (1pt min.). @ -[None done] CT interpreted by me (1pt min.). @ -[I interpreted as above U/S interpreted by me (1pt. min.). @ -[None done] What testing was considered but not performed or refused? (CT, X-rays, U/S, labs)? Why? @ -[None] What meds were considered but not given or refused? Why? @ -[None] Did you discuss the management of the patient with other professionals (professionals i.e. , PA, RECEPTION CENTRE MANAGER, lab, RT, psych nurse, family welfare social work professor, go go dancer, teacher, ammunition officer, case management specialist)? Give summary @ -[No] Was smoking cessation discussed for >3mins.? @ -[No] Was critical care preformed (if so, how long)? @ -[No] Were there social determinants of health that impacted care today? How? (Homelessness, low income, unemployed, alcoholism, drug addiction, transportation, low edu. Level, literacy, decrease access to med. care, detention, rehab)? @ -[No] Was there de-escalation of care discussed even if they declined (Discuss DNR or withdrawal of care, Hospice)? DNR status @ -[No] What co-morbidities impacted this encounter? (DM, HTN, Smoking, COPD, CAD, Cancer, CVA, ARF, Chemo, Hep., AIDS, mental health diagnosis, sleep apnea, morbid obesity)? @ -[None] Was patient admitted / discharged? Hospital course, mention meds given and route, prescriptions, significant lab abnormalities, going to OR and other pertinent info. @ -[Patient is a 59-year-old woman here with abdominal pain. History and physical suggestive of diverticulitis and this is confirmed by the CT scan. The patient is started on antibiotic treatment. She is feeling better and would like to go home. Discussed appropriate further care and follow-up as well as return parameters. Undiagnosed new problem with uncertain prognosis? @ -[No] Drug Therapy requiring intensive monitoring for toxicity (Heparin, Nitro, Insulin, Cardizem)? @ -[No] Were any procedures done? @ -[No] Diagnosis/symptom? @ -[Acute abdominal pain Acute diverticulitis Acute, or Chronic, or Acute on Chronic? @ -[Acute Uncomplicated (without systemic symptoms) or Complicated (systemic symptoms)? @ -[Uncomplicated Side effects of treatment? @ -[No] Exacerbation, Progression, or Severe Exacerbation? @ -[No] Poses a threat to life or bodily function? How? (Chest pain, USA, AL, pneumonia, PE, COPD, DKA, ARF, appy, cholecystitis, CVA, Diverticulitis, Homicidal, Suicidal, threat to staff... and all critical care pts) @ -[No] All treatments are based on ideal body weight as in ED triage - Lab Data Result diagrams: 02/01/25 17:08 02/01/25 17:08 Lab Results 02/01/25 02/01/25 02/01/25 Range/Units 17:08 17:08 17:08 WBC 12.30 H (4.50-10.00) 10*3/uL RBC 4.23 (4.10-5.20) 10*6/uL Hgb 13.4 (12.0-15.0) g/dL Hct 40.8 (37.2-46.3) % MCV 96.5 (80.0-97.0) fL MCH 31.7 (27.0-32.0) pg MCHC 32.8 (32.0-37.0) g/dL Plt Count 204 (140-440) 10*3/uL MPV 9.4 L (9.5-12.2) fL Immature Gran % (Auto) 0.2 % Neutrophils % 86.6 % Lymphocytes % 8.1 % Monocytes % 4.6 % Eosinophils % 0.3 % Basophils % 0.2 % Immature Gran # 0.03 (0.00-0.04) 10*3/uL Neutrophils # 10.65 H (1.80-7.70) 10*3/uL Lymphocytes # 1.00 (0.90-5.00) 10*3/uL Monocytes # 0.56 (0.20-1.00) 10*3/uL Eosinophils # 0.04 (0.04-0.35) 10*3/uL Basophils # 0.02 (0.00-0.10) 10*3/uL Sodium 139 (137-145) mmol/L Potassium 4.5 (3.5-5.1) mmol/L Chloride 102 (98-107) mmol/L Carbon Dioxide 28 (22-30) mmol/L Anion Gap 9 mmol/L BUN 26 H (7-17) mg/dL Creatinine 1.07 H (0.52-1.04) mg/dL Est GFR (CKD-EPI)AfAm 65 (>60 ml/min/1.73 sqM) Est GFR (CKD-EPI)NonAf 57 (>60 ml/min/1.73 sqM) Glucose 177 H (74-99) mg/dL POC Glucose (mg/dL) (70-110) mg/dL POC Glu Jewelry Drilling Machine Operator ID Plasma Lactic Acid Willem (0.7-2.0) mmol/L Calcium 9.9 (8.4-10.2) mg/dL Total Bilirubin 0.5 (0.2-1.3) mg/dL AST 25 (14-36) U/L ALT 20 (4-34) U/L Alkaline Phosphatase 157 H (38-126) U/L Total Protein 7.5 (6.3-8.2) g/dL Albumin 4.5 (3.5-5.0) g/dL Amylase 51 (30-110) U/L Lipase 95 (23-300) U/L Urine Color Colorless Urine Appearance Clear (Clear) Urine pH 5.0 (5.0-8.0) Ur Specific [place] 1.025 (1.001-1.035) Urine Protein Negative (Negative) Urine Glucose (UA) 4+ H (Negative) Urine Ketones Negative (Negative) Urine Blood Negative (Negative) Urine Nitrite Negative (Negative) Urine Bilirubin Negative (Negative) Urine Urobilinogen <2.0 (<2.0) mg/dL Ur Leukocyte Esterase Negative (Negative) 02/01/25 02/01/25 Range/Units 17:08 19:37 WBC (4.50-10.00) 10*3/uL RBC (4.10-5.20) 10*6/uL Hgb (12.0-15.0) g/dL Hct (37.2-46.3) % MCV (80.0-97.0) fL MCH (27.0-32.0) pg MCHC (32.0-37.0) g/dL Plt Count (140-440) 10*3/uL MPV (9.5-12.2) fL Immature Gran % (Auto) % Neutrophils % % Lymphocytes % % Monocytes % % Eosinophils % % Basophils % % Immature Gran # (0.00-0.04) 10*3/uL Neutrophils # (1.80-7.70) 10*3/uL Lymphocytes # (0.90-5.00) 10*3/uL Monocytes # (0.20-1.00) 10*3/uL Eosinophils # (0.04-0.35) 10*3/uL Basophils # (0.00-0.10) 10*3/uL Sodium (137-145) mmol/L Potassium (3.5-5.1) mmol/L Chloride (98-107) mmol/L Carbon Dioxide (22-30) mmol/L Anion Gap mmol/L BUN (7-17) mg/dL Creatinine (0.52-1.04) mg/dL Est GFR (CKD-EPI)AfAm (>60 ml/min/1.73 sqM) Est GFR (CKD-EPI)NonAf (>60 ml/min/1.73 sqM) Glucose (74-99) mg/dL POC Glucose (mg/dL) 52 L (70-110) mg/dL POC Glu Jewelry Drilling Machine Operator ID Alejandro Moscoso Plasma Lactic Acid Willem 1.5 (0.7-2.0) mmol/L Calcium (8.4-10.2) mg/dL Total Bilirubin (0.2-1.3) mg/dL AST (14-36) U/L ALT (4-34) U/L Alkaline Phosphatase (38-126) U/L Total Protein (6.3-8.2) g/dL Albumin (3.5-5.0) g/dL Amylase (30-110) U/L Lipase (23-300) U/L Urine Color Urine Appearance (Clear) Urine pH (5.0-8.0) Ur Specific [place] (1.001-1.035) Urine Protein (Negative) Urine Glucose (UA) (Negative) Urine Ketones (Negative) Urine Blood (Negative) Urine Nitrite (Negative) Urine Bilirubin (Negative) Urine Urobilinogen (<2.0) mg/dL Ur Leukocyte Esterase (Negative) Disposition Clinical Impression: Diverticulitis Disposition: HOME SELF-CARE Condition: Good Instructions (If sedation given, give patient instructions): Diverticulitis (ED) Prescriptions: Amoxic-Pot Clav 875-125Mg [Augmentin 875-125] 1 tab PO Q8H 1 Days #15 tab Is patient prescribed a controlled substance at d/c from ED?: No Referrals: Kamran Carcamo MD [Primary Care Provider] - 1-2 days
[2025-02-01] MEDS: AMOXIC-POT CLAV 875-125MG 1 EACH TAB PO STA ×2 (18:30→20:30)
[2025-02-01] MEDS: HYDROmorphone 1 MG/ML 1 ML SYRINGE IVP STA (18:30)
[2025-02-01 19:39] LABS: Glucose,Whole Blood 52 mg/dL (70-110)
[2025-02-01] MEDS: ACET/COD 300 MG/30 MG STARTER PACK 6 TAB BTL PO STA (20:28)
[2025-02-01 20:39] VITALS: BP 109/49; PULSE 90; TEMP 98
== END 2025-02-01 20:39 | disposition home or self-care (01) ==
LOC: EC 15:38
DX: K57.32 Diverticulitis of large intestine without perforation or abscess without bleeding (principal)
CPT/HCPCS: 36415; 80053; 82150; 83605; 83690; 85025; 81003; 74176; 99284; 96374; 96375; 96361; J2270; J1171

== ENCOUNTER → 2025-02-06 | Outpatient (CLI) | payer BC ==
--- NOTE | 2025-02-06 10:46 | US ---
EXAMINATION TYPE: US thyroid st tissue head/neck DATE OF EXAM: 02/06/2025 COMPARISON: NONE CLINICAL INDICATION: Female, 59 years old with history of R74.8 R79.89; on meds not functioning. Hypo thyroidism. TECHNIQUE: Grayscale and color Doppler imaging of the thyroid gland. FINDINGS: GLAND SIZE: Right Lobe: 2.4 x .7 x .6 cm Overall Parenchyma: heterogeneous Left Lobe: 1.9 x .5 x .7 cm Overall Parenchyma: heterogeneous Isthmus Thickness: .2 cm NODULES RIGHT: # of nodules measured on right: 0 LEFT: # of nodules measured on left: 0 ISTHMUS: # of nodules measured in the isthmus: 0 Bilateral neck scanned, no evidence of lymphadenopathy. IMPRESSION: Small heterogenous thyroid gland without discrete nodule. [facility], , 02/06/2025 10:43 AM
--- NOTE | 2025-02-06 10:48 | US ---
EXAMINATION TYPE: US liver DATE OF EXAM: 02/06/2025 COMPARISON: CT abdomen and pelvis 02/01/2025, ultrasound kidney 12/12/2024, abdominal ultrasound 019 CLINICAL INDICATION: Female, 59 years old with history of R74.8 R79.89; elevated liver enzymes. TECHNIQUE: Grayscale and color Doppler imaging of the right upper quadrant was performed. FINDINGS: EXAM MEASUREMENTS: Liver Length: 17 cm Gallbladder Wall: .2 cm CBD: .5 cm Right Kidney: 8.6 x 4.4 x 4.6 cm HOG MAN NOTES: Pancreas: Obscured by bowel gas Liver: Increased attenuation Gallbladder: No stones seen Evidence for sonographic Chisholm's sign: No CBD: wnl Right Kidney: wnl The pancreas is obscured by overlying bowel gas. Diffusely increased echogenicity of the liver withou t focal lesion. No surface nodularity. Gallbladder is unremarkable without evidence of wall thickenin g, stones or surrounding fluid. Negative sonographic Chisholm sign. Common bile duct is within normal l imits. Right kidney demonstrates no hydronephrosis, solid mass, or shadowing calculus. IMPRESSION: 1. No ultrasound evidence for acute process. 2. Mild hepatic steatosis suggested without focal lesion. [facility], , 02/06/2025 10:46 AM
== END | disposition home or self-care (01) ==
LOC: RADUSWWP 11:49
PROVIDERS: ATTEND Internal Medicine
DX: R79.89 Other specified abnormal findings of blood chemistry (principal); R74.8 Abnormal levels of other serum enzymes; E03.9 Hypothyroidism, unspecified
CPT/HCPCS: 76536; 76705

== ENCOUNTER 2025-03-25 12:27 | Emergency (ER) | payer OTHER, BC ==
[2025-03-25 12:42] VITALS: BP 129/75; PULSE 82; RESP 20; TEMP 97.7
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
[2025-03-25] MEDS: ACETAMINOPHEN TAB 325 MG TAB PO STA (13:21)
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
== END 2025-03-25 14:25 | disposition home or self-care (01) ==
LOC: EC 12:27
DX: M25.511 Pain in right shoulder (principal); V89.2XXA Person injured in unspecified motor-vehicle accident, traffic, initial encounter
CPT/HCPCS: 99284

== ENCOUNTER → 2025-04-10 | Outpatient (CLI) | payer OTHER ==
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
== END | disposition home or self-care (01) ==
LOC: RADXRMAIN 13:11
PROVIDERS: ATTEND Internal Medicine
DX: M48.02 Spinal stenosis, cervical region (principal); G44.311 Acute post-traumatic headache, intractable; M47.812 Spondylosis without myelopathy or radiculopathy, cervical region
CPT/HCPCS: 72050

== ENCOUNTER → 2025-04-15 | Outpatient (CLI) | payer BC ==
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
== END | disposition home or self-care (01) ==
LOC: RADCTMAIN 11:18
PROVIDERS: ATTEND Internal Medicine
DX: G44.311 Acute post-traumatic headache, intractable (principal); G31.1 Senile degeneration of brain, not elsewhere classified; I67.82 Cerebral ischemia
CPT/HCPCS: 70450

== ENCOUNTER → 2025-04-25 | Outpatient (CLI) | payer BC ==
--- NOTE | 2025-04-25 15:05 | MR ---
INDICATION: Patient age:Female; 60 years old; Reason for study: I73.9,G31.1; [facility]. COMPARISON: CT brain 04/15/2025. TECHNIQUE: Multi planar, multi sequence imaging was performed through the brain. The patient was then given 8 cc of Gadobutrol intravenously and multi planar, T1 fat-saturation images were obtained. FINDINGS: The laird-white junctions, ventricular system, basal cisterns appear unremarkable. Age-appropriate cer ebral Low volume. Diffusion-weighted imaging shows no evidence of restricted diffusion to suggest acute/sub acute infarct. Intracranial arterial flow voids are maintained. Midline structures show no abnormalit y. Few scattered foci of high T2/FLAIR signal intensity are seen within the cerebral subcortical whit e matter. The susceptibility weighted images do not reveal any evidence for micro-hemorrhage. After a dministration of gadolinium, no abnormal enhancement is seen. The bone marrow signal is within normal limits. The globes are unremarkable. Air-fluid level with m ucosal thickening within the right maxillary sinus. Minimal mucosal thickening of the ethmoid sinuses . IMPRESSION: 1. No evidence of intracranial mass, acute/subacute infarct, or abnormal enhancement. 2. Minimal nonspecific white matter changes. Etiologies include chronic migraines, chronic small vess el ischemic disease, demyelination, and other. 3. Mucosal thickening with air-fluid level within the right maxillary sinus. Correlate clinically for acute sinusitis. [facility], , 04/25/2025 3:02 PM
== END | disposition home or self-care (01) ==
LOC: RADMRIMAIN 14:03
PROVIDERS: ATTEND Internal Medicine
DX: I73.9 Peripheral vascular disease, unspecified (principal); G31.1 Senile degeneration of brain, not elsewhere classified; J34.89 Other specified disorders of nose and nasal sinuses; R90.82 White matter disease, unspecified; I67.82 Cerebral ischemia
CPT/HCPCS: 70553; A9585

== ENCOUNTER → 2025-05-04 | Outpatient (CLI) | payer BC ==
[2025-05-04 15:24] LABS: HCT 40.7 % (37.2-46.3); HGB 12.9 g/dL (12.0-15.0); MCH 29.9 pg (27.0-32.0); MCHC 31.7 g/dL (32.0-37.0); MCV 94.4 FL (80.0-97.0); NRBC Per 100 WBC 0 X 10*3/uL (0.00-0.01); Platelet Count 199 X 10*3/uL (140-440); RBC 4.31 X 10*6/uL (4.10-5.20); RDW 13.7 % (11.5-14.5); WBC 6.70 X 10*3/uL (4.50-10.00)
[2025-05-04 16:01] LABS: Bilirubin,Urine Negative (Negative); Blood,Urine Negative (Negative); Color,Urine Yellow (Yellow); Ketones,Urine Trace (Negative); Nitrite,Urine Negative (Negative); PH, Urine 5.0; Specific Gravity,Urine >1.035 (1.001-1.030); Urobilinogen,Urine 0.2
[2025-05-04 16:11] LABS: ALT 20 U/L (8-44); AST 23 U/L (13-35); Albumin 4.5 g/dL (3.8-4.9); Albumin/Globulin Ratio 1.73 Ratio (1.60-3.17); Alkaline Phosphatase 142 U/L (41-126); Anion Gap 10.00 mmol/L (4.00-12.00); BUN/Creat Ratio 18.00 Ratio (12.00-20.00); Blood Urea Nitrogen 21.6 mg/dL (9.0-27.0); Calcium 9.5 mg/dL (8.7-10.3); Carbon Dioxide 27.0 mmol/L (21.6-31.8); Chloride 104 mmol/L (96-109); Ferritin 53.4 ng/mL (10.0-291.0); Globulin 2.6 g/dL (1.6-3.3); Glucose 101 mg/dL (70-110); Iron 47 UG/DL (50-170); Magnesium 1.9 mg/dL (1.5-2.4); Potassium 4.6 mmol/L (3.5-5.5); Sodium 141 mmol/L (135-145); Total Iron Binding Capacity 326 UG/DL (228-460); Total Protein 7.1 g/dL (6.2-8.2); Uric Acid 2.9 mg/dL (2.9-7.7)
== END | disposition home or self-care (01) ==
LOC: LABWHC1 10:47
PROVIDERS: ATTEND Internal Medicine
DX: E55.9 Vitamin D deficiency, unspecified (principal); N18.31 Chronic kidney disease, stage 3a; D63.1 Anemia in chronic kidney disease; N25.81 Secondary hyperparathyroidism of renal origin; M10.9 Gout, unspecified; N39.0 Urinary tract infection, site not specified
CPT/HCPCS: 36415; 80053; 81003; 82306; 82728; 83540; 83550; 83735; 83970; 84100; 84550; 85027